=== PATIENT | female | born 1935 | race Caucasian/White ===

== ENCOUNTER 2017-04-05 05:41 | Emergency (ER) | payer MEDICARE ==
[2017-04-05 06:03] VITALS: RESP 16; TEMP 96.9
[2017-04-05 06:04] LABS: Appearance,Urine Cloudy (Clear); Bacteria,Urine Rare /hpf; Bilirubin,Urine Negative (Negative); Glucose,Urine (UA) Negative (Negative); Ketones,Urine Negative (Negative); Leukocyte Esterase,Urine Trace (Negative); Mucus,Urine Rare /hpf; Nitrite,Urine Negative (Negative); PH, Urine 5.5 (5.0-8.0); Particle Count 6337; Protein,Urine 1+ (Negative); RBC,Urine 2 /hpf (0-5); Specific Gravity,Urine 1.024 (1.001-1.035); Squamous Epithelial Cell,Urine 10 /hpf (0-4); UA Billing (MACRO vs. MICRO) MICRO; Urobilinogen,Urine <2.0 mg/dL (<2.0); WBC,Urine 6 /hpf (0-5)
--- NOTE | 2017-04-05 06:07 | ED ---
General Adult HPI - General Chief complaint: Urogenital Stated complaint: Female Time Seen by Provider: 04/05/17 06:00 Source: patient, RN notes reviewed Mode of arrival: ambulatory Limitations: no limitations - History of Present Illness Initial comments: This is an 82-year-old female who presents emergency Department complaining of burning in the vaginal area and some pain in the rectum. Patient states she is constipated and she has quite a bit of dysuria when she is urinating. Patient states she has burning in the vagina area and when she is not urinating. Patient states this started yesterday. Patient denies any discharge. Patient states she is unable to see down her so she does not know if there is any physical changes. Patient denies any fever or chills. Patient states she has been constipated for a few days. Patient denies any abdominal pain. Patient denies any back pain. Patient denies any diarrhea patient denies nausea vomiting patient states the rectal pain is something ongoing for a couple years - Related Data Home Medications Medication Instructions Recorded Confirmed Aspirin 81 mg PO HS 09/17/14 01/14/16 Rosuvastatin [Crestor] 10 mg PO Q48H 09/17/14 01/14/16 glipiZIDE [Glucotrol XL] 2.5 mg PO AC-BRKFST 09/17/14 01/14/16 Vitamin E (Dl,Tocopheryl Acet) 400 units PO DAILY 09/24/14 01/14/16 [Vitamin E] Albuterol Sulfate [Proventil Hfa] 2 puff INHALATION RT-Q6H PRN 12/03/14 01/14/16 Losartan [Cozaar] 50 mg PO HS 11/21/15 01/14/16 Levothyroxine Sodium [Synthroid] 100 mcg PO DAILY 11/22/15 01/14/16 Albuterol Nebulized [Ventolin 2.5 mg INHALATION RT-TID PRN 01/14/16 01/14/16 Nebulized] traMADol HCl [Ultram] 50 mg PO Q6H 01/14/16 01/14/16 Previous Rx's Medication Instructions Recorded Furosemide [Lasix] 20 mg PO DAILY PRN #30 tab 11/24/15 Levofloxacin [Levaquin] 500 mg PO DAILY #10 tab 01/14/16 Amoxicillin 500 mg PO Q8H #30 capsule 04/05/17 Estrogens, Conjugated Cream 1 applicator VAGINAL DAILY #1 tube 04/05/17 [Premarin Cream] Allergies Allergy/AdvReac Type Severity Reaction Status Date / Time Lzoukqf-Aol-Sya Reductase AdvReac Mild GENERALIZED Verified 04/05/17 05:54 Inhibitor MUSCLE ACHING-TOLERATES CRESTOR QOD cephalexin monohydrate AdvReac YEAST Verified 04/05/17 05:54 [From Keflex] INFECTION Review of Systems ROS Statement: Those systems with pertinent positive or pertinent negative responses have been documented in the HPI. ROS Other: All systems not noted in ROS Statement are negative. Past Medical History Past Medical History: Asthma, COPD, Diabetes Mellitus, Hyperlipidemia, Hypertension, Osteoarthritis (OA), Thyroid Disorder Additional Past Medical History / Comment(s): CHRONIC BRONCITIS WITH COUGH. LOWER BACK PAIN. PERIPHERAL EDEMA (FEET) History of Any Multi-Drug Resistant Organisms: None Reported Past Surgical History: Adenoidectomy, Cholecystectomy, Hernia Repair, Joint Replacement, Tonsillectomy Additional Past Surgical History / Comment(s): RIGHT KNEE REPLACED. UMB HERNIA. LEFT LOWER LOBECTOMY (1968) FOR CHRONIC PNEUMONIA. D&C 2014 Past Anesthesia/Blood Transfusion Reactions: No Reported Reaction Past Psychological History: No Psychological Hx Reported Smoking Status: Never smoker Past Alcohol Use History: None Reported Past Drug Use History: None Reported - Past Family History Father Family Medical History: Cancer, CVA/TIA Additional Family Medical History / Comment(s): BLADDER Mother Family Medical History: Asthma Additional Family Medical History / Comment(s): MOM WHEN PT WAS 7 YRS OLD- SHE THINKS OF LUNG PROBLEMS & ASTHMA General Exam - General Exam Comments Initial Comments: GENERAL: Patient is well-developed and well-nourished. Patient is nontoxic and well- hydrated and is in mild distress. ENT: Neck is soft and supple. No significant lymphadenopathy is noted. Oropharynx is clear. Moist mucous membranes. Neck has full range of motion without eliciting any pain. EYES: The sclera were anicteric and conjunctiva were pink and moist. Extraocular movements were intact and pupils were equal round and reactive to light. Eyelids were unremarkable. PULMONARY: Unlabored respirations. Good breath sounds bilaterally. No audible rales rhonchi or wheezing was noted. CARDIOVASCULAR: There is a regular rate and rhythm without any murmurs gallops or rubs. ABDOMEN: Soft and nontender with normal bowel sounds. No palpable organomegaly was noted. There is no palpable pulsatile mass. SKIN: Skin is clear with no lesions or rashes and otherwise unremarkable. NEUROLOGIC: Patient is alert and oriented x3. Cranial nerves II through XII are grossly intact. Motor and sensory are also intact. Normal speech, volume and content. Symmetrical smile. MUSCULOSKELETAL: Normal extremities with adequate strength and full range of motion. No lower extremity swelling or edema. No calf tenderness. PSYCHIATRIC: Normal psychiatric evaluation. Limitations: no limitations Course Vital Signs 04/05/17 04/05/17 05:54 06:19 Temperature 96.9 F L Pulse Rate 82 70 Respiratory 16 16 Rate Blood Pressure 182/77 151/70 O2 Sat by Pulse 97 97 Oximetry Medical Decision Making - Medical Decision Making Patient's x-ray was unremarkable. On external genitalia examination patient had no redness and no swelling was noted there was a small cut on the inside of the left labia. - Lab Data Lab Results 04/05/17 Range/Units 05:50 Urine Color Yellow Urine Appearance Cloudy H (Clear) Urine pH 5.5 (5.0-8.0) Ur Specific [place] 1.024 (1.001-1.035) Urine Protein 1+ H (Negative) Urine Glucose (UA) Negative (Negative) Urine Ketones Negative (Negative) Urine Blood Negative (Negative) Urine Nitrite Negative (Negative) Urine Bilirubin Negative (Negative) Urine Urobilinogen <2.0 (<2.0) mg/dL Ur Leukocyte Esterase Trace H (Negative) Urine RBC 2 (0-5) /hpf Urine WBC 6 H (0-5) /hpf Ur Squamous Epith Cells 10 H (0-4) /hpf Urine Bacteria Rare H (None) /hpf Urine Mucus Rare H (None) /hpf Disposition Clinical Impression: Labial abrasion, Vaginitis Disposition: HOME SELF-CARE Condition: Good Instructions: Vaginitis (ED) Prescriptions: Amoxicillin 500 mg PO Q8H #30 capsule Estrogens, Conjugated Cream [Premarin Cream] 1 applicator VAGINAL DAILY #1 tube Referrals: Roney Smith DO [Primary Care Provider] - 1-2 days Time of Disposition: 06:21
[2017-04-05] MEDS ORDERED: FLUCONAZOLE 150 MG TAB PO STA (06:22)
--- NOTE | 2017-04-05 06:47 | XR ---
EXAM: XR Kub CLINICAL HISTORY: Reason: Pain TECHNIQUE: Upright AP views abdomen. COMPARISON: Comparison 01/14/16. FINDINGS: Limited by body habitus. Flanks are clipped. No subdiaphragmatic free air is seen. Non-obstructive bowel gas pattern. IMPRESSION: Non-obstructive bowel gas pattern.
[2017-04-05 07:09] VITALS: BP 136/78; PULSE 67
== END 2017-04-05 06:59 | disposition home or self-care (01) ==
LOC: EC 05:41
DX: S30.814A Abrasion of vagina and vulva, initial encounter (principal); K59.00 Constipation, unspecified; E78.5 Hyperlipidemia, unspecified; I10 Essential (primary) hypertension; E11.9 Type 2 diabetes mellitus without complications; M19.90 Unspecified osteoarthritis, unspecified site; E07.9 Disorder of thyroid, unspecified; Z79.82 Long term (current) use of aspirin; Z79.84 Long term (current) use of oral hypoglycemic drugs; Z79.899 Other long term (current) drug therapy; Z88.1 Allergy status to other antibiotic agents; Z88.8 Allergy status to other drugs, medicaments and biological substances; X58.XXXA Exposure to other specified factors, initial encounter
CPT/HCPCS: 74000; 81001; 87086; 99283

== ENCOUNTER → 2017-05-25 | Outpatient (CLI) | payer MEDICARE ==
[2017-05-25 16:07] LABS: Basophils # (A) 0.1 k/uL (0-0.2); Basophils % (A) 1 %; CH 30.1; Eosinophils # (A) 0.1 k/uL (0-0.7); Eosinophils % (A) 1 %; HCT 48.2 % (34.0-46.0); HDW 2.47; HGB 15.2 gm/dL (11.4-16.0); Luc # (Auto) 0.24; Luc % (Auto) 3; Lymphocytes # (A) 2.8 k/uL (1.0-4.8); Lymphocytes % (A) 36 %; MCH 29.8 pg (25.0-35.0); MCHC 31.5 g/dL (31.0-37.0); MCV 94.5 fL (80.0-100.0); Mean Platelet Volume 8.1; Monocytes # (A) 0.4 k/uL (0-1.0); Monocytes % (A) 5 %; Neutrophils # (A) 4.1 k/uL (1.3-7.7); Neutrophils % (A) 54 %; RDW 14.4 % (11.5-15.5); WBC 7.6 k/uL (3.8-10.6); WBC (Perox) 7.74
[2017-05-25 16:24] LABS: Potassium 4.5 mmol/L (3.5-5.1)
== END | disposition home or self-care (01) ==
LOC: LABPAT 15:40
PROVIDERS: ATTEND Obstetrics & Gynecology
DX: Z01.812 Encounter for preprocedural laboratory examination (principal); R93.8 Abnormal findings on diagnostic imaging of other specified body structures
CPT/HCPCS: 80051; 82565; 84520; 85025

== ENCOUNTER 2017-06-07 10:14 | Day surgery (SDC) | payer MEDICARE ==
[2017-06-04 10:38] VITALS: BMI 43.4
[~2017-06-07 10:14] MED LIST: DEXAMETHASONE SOD PHOSPHATE 10 MG/ML 1 ML VIAL IV ONE; HYDROmorphone 1 MG/ML 1 ML SYRINGE IVP PRN; LACTATED RINGERS 1,000 ML IV SCH; ONDANSETRON 4 MG/2 ML VIAL IVP ONE; Pre Op ABX Message 1 EACH MISC MISCELLANE ONE
[2017-06-07] MEDS ORDERED: LACTATED RINGERS 1,000 ML IV ONE (10:45)
[2017-06-07] MEDS ORDERED: LIDOCAINE 1% 20 ML VIAL (10MG/ML) FOR IV START INTRADERMA ONE (10:49)
[2017-06-07 11:00] LABS: Glucose,Whole Blood 171 mg/dL (75-99)
[2017-06-07] MEDS ORDERED: LIDOCAINE 1% INJ 10MG/ML (20 ML MDV) ONE (11:45)
[2017-06-07] MEDS ORDERED: SUCCINYLCHOLINE CHLORIDE 100 MG/5 ML SYR IV ONE (11:45)
[2017-06-07] MEDS ORDERED: fentaNYL (PF) 50 MCG/ML 2 ML AMP ONE (11:45)
[2017-06-07] MEDS ORDERED: PROPOFOL 10 MG/ML 20 ML VIAL IV ONE (11:45)
[2017-06-07] MEDS ORDERED: BUPIVACAINE-EPI 0.5%-1:200,000 10 ML VIAL SQ ONE ×2 (12:17)
--- NOTE | 2017-06-07 12:31 | P.OP ---
Date of Procedure: 06/07/17 Preoperative Diagnosis: Thickened endometrium in a postmenopausal woman Postoperative Diagnosis: Same Procedure(s) Performed: Diagnostic hysteroscopy with D&C Implants: Anesthesia: GELYA Surgeon: Zoe Sparrow Estimated Blood Loss (ml): 5 IV fluids (ml): 400 Urine output (ml): 50 Pathology: other (Endometrial curettings) Condition: stable Disposition: PACU Indications for Procedure: Thickened endometrium noted on abdominal imaging done for evaluation of pelvic pain. Secondary to patient's body habitus endometrial biopsy is not possible in the outpatient setting. Operative Findings: Atrophic endometrium with no gross intracavitary lesions appreciated on diagnostic hysteroscopy Description of Procedure: The patient and her family members were met in the preoperative holding area and all questions were answered, she was taken to the operating room where anesthetic was administered. She was in positioned, prepped and draped in the dorsal lithotomy position. Exam under anesthetic was limited secondary to patient's body habitus. Bladder was drained for approximately 50 mL of clear urine. Weighted speculum was placed in the vagina and the cervix was grasped anteriorly with a single-tooth tenaculum. Uterus was sounded to 8 cm. The cervix was then sequentially dilated to allow for passage of the diagnostic hysteroscope. Hysteroscope was inserted and the above findings were noted. After the hysteroscope was removed cervix was further dilated to allow for passage of the small sharp banjo curette. Minimal tissue was obtained back on extensive circumferential curettage. Consistent with atrophic endometrium. The the curettage was removed the hysteroscope was reintroduced and no further findings were noted. Hysteroscope was removed. Instruments removed from the cervix. Of note at the beginning of the procedure paracervical block with lidocaine plus epinephrine was placed. The cervix was observed at the end of procedure no active bleeding was noted. Instruments removed and the patient was awoken from anesthetic without incident. She was transported to recovery area in stable condition. All counts reported to me as correct by the operating room staff.
[2017-06-07 12:46] VITALS: TEMP 97.6
[2017-06-07 13:17] VITALS: PULSE 79
[2017-06-07 13:42] VITALS: RESP 16
[2017-06-07 14:00] VITALS: BP 134/84
== END 2017-06-07 14:44 | disposition home or self-care (01) ==
LOC: OR 10:14
PROVIDERS: ATTEND Obstetrics & Gynecology
DX: R93.8 Abnormal findings on diagnostic imaging of other specified body structures (principal); N95.0 Postmenopausal bleeding; R10.2 Pelvic and perineal pain; J47.9 Bronchiectasis, uncomplicated; N18.9 Chronic kidney disease, unspecified; E11.22 Type 2 diabetes mellitus with diabetic chronic kidney disease; I12.9 Hypertensive chronic kidney disease with stage 1 through stage 4 chronic kidney disease, or unspecified chronic kidney disease; E03.9 Hypothyroidism, unspecified; E66.9 Obesity, unspecified; Z68.42 Body mass index [BMI] 45.0-49.9, adult; E78.5 Hyperlipidemia, unspecified; R01.1 Cardiac murmur, unspecified; K21.9 Gastro-esophageal reflux disease without esophagitis; J44.9 Chronic obstructive pulmonary disease, unspecified; J42 Unspecified chronic bronchitis; Z79.84 Long term (current) use of oral hypoglycemic drugs; Z79.82 Long term (current) use of aspirin; Z79.891 Long term (current) use of opiate analgesic; Z79.899 Other long term (current) drug therapy; Z88.1 Allergy status to other antibiotic agents; Z88.8 Allergy status to other drugs, medicaments and biological substances
CPT/HCPCS: 88305; 58558; J1100; J2405; J2001; J3010; J0330; J2704

== ENCOUNTER 2018-05-31 01:13 | Emergency (ER) | payer MEDICARE ==
[2018-05-31 02:59] LABS: Basophils % (A) 0 %; Eosinophils # (A) 0.1 k/uL (0-0.7); Eosinophils % (A) 1 %; Lymphocytes % (A) 34 %; MCH 29.4 pg (25.0-35.0); MCHC 32.6 g/dL (31.0-37.0); MCV 90.1 fL (80.0-100.0); Mean Platelet Volume 7.2; Monocytes # (A) 0.4 k/uL (0-1.0); Monocytes % (A) 5 %; Neutrophils # (A) 4.9 k/uL (1.3-7.7); Neutrophils % (A) 57 %; Platelet Count 203 k/uL (150-450); RBC 5.77 m/uL (3.80-5.40); RDW 13.8 % (11.5-15.5); WBC 8.7 k/uL (3.8-10.6)
--- NOTE | 2018-05-31 03:07 | ED ---
Back Pain [facility] - General Chief Complaint: Back Pain/Injury Stated Complaint: back/leg pain Time Seen by Provider: 05/31/18 01:37 Source: patient Limitations: no limitations - History of Present Illness MD Complaint: back pain -: days(s) Similar Symptoms Previously: Yes Place: home Radiation: buttocks, right leg Severity: moderate Quality: burning, aching Consistency: constant Improves With: none Worsens With: none Context: bending Associated Symptoms: denies other symptoms - Related Data Home Medications Medication Instructions Recorded Confirmed Aspirin 81 mg PO HS 09/17/14 06/04/17 Rosuvastatin [Crestor] 10 mg PO Q48H 09/17/14 06/04/17 glipiZIDE [Glucotrol XL] 2 tab PO AC-BRKFST 09/17/14 06/04/17 Albuterol Sulfate [Proventil Hfa] 2 puff INHALATION RT-Q6H PRN 12/03/14 06/04/17 Losartan [Cozaar] 50 mg PO HS 11/21/15 06/04/17 Levothyroxine Sodium [Synthroid] 100 mcg PO DAILY 11/22/15 06/04/17 Albuterol Nebulized [Ventolin 2.5 mg INHALATION RT-TID PRN 01/14/16 06/04/17 Nebulized] traMADol HCl [Ultram] 50 mg PO DAILY PRN 01/14/16 06/04/17 ALPRAZolam [Xanax] 0.25 mg PO DAILY PRN 05/25/17 06/04/17 Ascorbic Acid [Vitamin C] 500 mg PO DAILY 05/25/17 06/04/17 Cholecalciferol [Vitamin D3] 4,000 unit PO HS 05/25/17 06/04/17 Furosemide [Lasix] 20 mg PO DAILY 05/25/17 06/04/17 Krill Oil 1,000 mg PO DAILY 05/25/17 06/04/17 Polyethylene Glycol 3350 [Miralax] 17 gm PO DAILY PRN 05/25/17 06/04/17 Ubidecarenone [Co Q-10] 100 mg PO DAILY 05/25/17 06/04/17 Previous Rx's Medication Instructions Recorded Sulfamethox-Tmp 800-160Mg [Bactrim 1 each PO Q12HR #6 tab 05/31/18 Ds] predniSONE 20 mg PO BID #8 tab 05/31/18 Allergies Allergy/AdvReac Type Severity Reaction Status Date / Time Mbuntoj-Tgi-Hyz Reductase AdvReac Mild GENERALIZED Verified 05/31/18 01:17 Inhibitor MUSCLE ACHING-TOLERATES CRESTOR QOD cephalexin monohydrate AdvReac YEAST Verified 05/31/18 01:17 [From Keflex] INFECTION gabapentin [From Neurontin] AdvReac Unknown Verified 05/31/18 01:17 pregabalin [From Lyrica] AdvReac "FELT Verified 05/31/18 01:17 FUNNY" Review of Systems ROS Statement: Those systems with pertinent positive or pertinent negative responses have been documented in the HPI. ROS Other: All systems not noted in ROS Statement are negative. Constitutional: Denies: fever, chills, weakness Respiratory: Denies: cough, dyspnea Cardiovascular: Denies: chest pain, palpitations Gastrointestinal: Denies: abdominal pain, vomiting, diarrhea, constipation Genitourinary: Denies: dysuria, frequency, hematuria Musculoskeletal: Reports: as per HPI, back pain Skin: Denies: rash Neurological: Denies: headache, weakness, numbness Past Medical History Past Medical History: Asthma, COPD, Diabetes Mellitus, Hyperlipidemia, Hypertension, Osteoarthritis (OA), Renal Disease, Thyroid Disorder Additional Past Medical History / Comment(s): CHRONIC BRONCITIS W/ COUGH. LOWER BACK PAIN. PERIPHERAL EDEMA BLE, FEET. Experiencing burning pain in pelvic area, vagina, rectum. Varicose Veins. IBS. RECENT IMPAIRED RENAL FUNCTION BEING MONITORED. History of Any Multi-Drug Resistant Organisms: None Reported Past Surgical History: Adenoidectomy, Cholecystectomy, Hernia Repair, Joint Replacement, Tonsillectomy Additional Past Surgical History / Comment(s): RT KNEE REPLACED. UMB HERNIA. 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 D&C 2014. HEMORRHOID, FISSURE SURG. Past Anesthesia/Blood Transfusion Reactions: No Reported Reaction Past Psychological History: Anxiety Smoking Status: Former smoker - Past Family History Father Family Medical History: Cancer, CVA/TIA Additional Family Medical History / Comment(s): BLADDER Mother Family Medical History: Asthma, Pneumonia Additional Family Medical History / Comment(s): MOM WHEN PT WAS 5 YRS OLD- SHE THINKS OF LUNG PROBLEMS & ASTHMA General Exam Limitations: no limitations General appearance: alert, in no apparent distress, obese Head exam: Present: atraumatic, normocephalic Respiratory exam: Present: normal lung sounds bilaterally. Absent: respiratory distress, wheezes, rales, rhonchi, stridor Cardiovascular Exam: Present: regular rate, normal rhythm, normal heart sounds. Absent: systolic murmur, diastolic murmur, rubs, gallop GI/Abdominal exam: Present: soft. Absent: distended, tenderness, pulsatile mass Back exam: Absent: CVA tenderness (R), CVA tenderness (L), vertebral tenderness Neurological exam: Present: alert, reflexes normal. Absent: motor sensory deficit Skin exam: Present: warm, dry, intact, normal color. Absent: rash Course Vital Signs 05/31/18 05/31/18 05/31/18 01:15 03:18 04:43 Temperature 98.6 F Pulse Rate 76 67 76 Respiratory 20 18 18 Rate Blood Pressure 174/85 162/78 174/81 O2 Sat by Pulse 95 100 95 Oximetry Medical Decision Making - Lab Data Result diagrams: 05/31/18 02:52 05/31/18 02:52 Lab Results 05/31/18 05/31/18 05/31/18 Range/Units 02:52 02:52 03:24 WBC 8.7 (3.8-10.6) k/uL RBC 5.77 H (3.80-5.40) m/uL Hgb 17.0 H (11.4-16.0) gm/dL Hct 52.0 H (34.0-46.0) % MCV 90.1 (80.0-100.0) fL MCH 29.4 (25.0-35.0) pg MCHC 32.6 (31.0-37.0) g/dL RDW 13.8 (11.5-15.5) % Plt Count 203 (150-450) k/uL Neutrophils % 57 % Lymphocytes % 34 % Monocytes % 5 % Eosinophils % 1 % Basophils % 0 % Neutrophils # 4.9 (1.3-7.7) k/uL Lymphocytes # 3.0 (1.0-4.8) k/uL Monocytes # 0.4 (0-1.0) k/uL Eosinophils # 0.1 (0-0.7) k/uL Basophils # 0.0 (0-0.2) k/uL Sodium 140 (137-145) mmol/L Potassium 4.4 (3.5-5.1) mmol/L Chloride 104 (98-107) mmol/L Carbon Dioxide 30 (22-30) mmol/L Anion Gap 6 mmol/L BUN 19 H (7-17) mg/dL Creatinine 1.10 H (0.52-1.04) mg/dL Est GFR (CKD-EPI)AfAm 53 (>60 ml/min/1.73 sqM) Est GFR (CKD-EPI)NonAf 46 (>60 ml/min/1.73 sqM) Glucose 114 H (74-99) mg/dL Calcium 9.4 (8.4-10.2) mg/dL Urine Color Light Yellow Urine Appearance Clear (Clear) Urine pH 6.5 (5.0-8.0) Ur Specific [place] 1.010 (1.001-1.035) Urine Protein Negative (Negative) Urine Glucose (UA) Negative (Negative) Urine Ketones Negative (Negative) Urine Blood Negative (Negative) Urine Nitrite Negative (Negative) Urine Bilirubin Negative (Negative) Urine Urobilinogen <2.0 (<2.0) mg/dL Ur Leukocyte Esterase Moderate H (Negative) Urine RBC 2 (0-5) /hpf Urine WBC 33 H (0-5) /hpf Ur Squamous Epith Cells 4 (0-4) /hpf Urine Bacteria Occasional H (None) /hpf Disposition Clinical Impression: Sciatica, Urinary tract infection Disposition: HOME SELF-CARE Condition: Fair Instructions: Acute Low Back Pain (ED), Urinary Tract Infection in Women (ED) Prescriptions: predniSONE 20 mg PO BID #8 tab Sulfamethox-Tmp 800-160Mg [Bactrim Ds] 1 each PO Q12HR #6 tab Is patient prescribed a controlled substance at d/c from ED?: No Referrals: Roney Smith DO [Primary Care Provider] - 1-2 days Sandra Gustafson DO [Doctor of Osteopathic Medicine] - 1-2 days
[2018-05-31 03:14] LABS: Calcium 9.4 mg/dL (8.4-10.2); Potassium 4.4 mmol/L (3.5-5.1)
[2018-05-31 03:21] VITALS: RESP 18
--- NOTE | 2018-05-31 03:22 | CT ---
EXAMINATION TYPE: CT lumbar spine wo con DATE OF EXAM: 05/31/2018 3:08 AM COMPARISON: CT abdomen 01/14/2016 HISTORY: Back pain CT DLP: mGycm Automated exposure control for dose reduction was used. Unenhanced CT of the lumbar spine was performed. Bone and soft tissue window settings are submitted as well as coronal and sagittal reconstructions. There is a few millimeter anterior subluxation of L3 in relation L4. There is narrowing of L5-S1 disc space. There is minimal narrowing of the L3-4 disc space. There is no compression fracture. Posterio r elements appear intact. There is hypertrophic facet arthropathy throughout the lumbar spine. There is no lumbar paraspinal mass. There is some lateral recess stenosis at L3-4 due to facet arthropathy. The sacroiliac joints appear intact. There is no focal bone destruction. IMPRESSION: Mild multilevel spondylotic changes. Mild lateral recess stenosis at L3-4 due to facet arthropathy. N o fracture. No significant change compared to old exam.
[2018-05-31 03:34] LABS: Appearance,Urine Clear (Clear); Bacteria,Urine Occasional /hpf; Bilirubin,Urine Negative (Negative); Blood,Urine Negative (Negative); Color,Urine Light Yellow; Glucose,Urine (UA) Negative (Negative); Ketones,Urine Negative (Negative); Leukocyte Esterase,Urine Moderate (Negative); Nitrite,Urine Negative (Negative); PH, Urine 6.5 (5.0-8.0); Protein,Urine Negative (Negative); RBC,Urine 2 /hpf (0-5); Squamous Epithelial Cell,Urine 4 /hpf (0-4); Urobilinogen,Urine <2.0 mg/dL (<2.0); WBC,Urine 33 /hpf (0-5)
[2018-05-31] MEDS ORDERED: predniSONE 20 MG TAB PO STA (03:51)
[2018-05-31] MEDS ORDERED: MORPHINE SULFATE 4 MG/ML SYRINGE IV STA (03:52)
[2018-05-31] MEDS ORDERED: KETOROLAC 30 MG/ML 1 ML VIAL IVP STA (03:52)
[2018-05-31] MEDS ORDERED: SULFAMETHOX-TMP 800-160MG 1 EACH TAB PO STA (04:40)
[2018-05-31 05:45] VITALS: BP 180/81; PULSE 74; TEMP 98.1
== END 2018-05-31 05:45 | disposition home or self-care (01) ==
LOC: EC 01:13
DX: N39.0 Urinary tract infection, site not specified (principal); M54.31 Sciatica, right side; J44.9 Chronic obstructive pulmonary disease, unspecified; E11.9 Type 2 diabetes mellitus without complications; I10 Essential (primary) hypertension; E78.5 Hyperlipidemia, unspecified; M19.90 Unspecified osteoarthritis, unspecified site; E07.9 Disorder of thyroid, unspecified; F41.9 Anxiety disorder, unspecified; Z87.891 Personal history of nicotine dependence; Z90.49 Acquired absence of other specified parts of digestive tract; Z96.651 Presence of right artificial knee joint; Z98.890 Other specified postprocedural states; Z79.82 Long term (current) use of aspirin; Z79.84 Long term (current) use of oral hypoglycemic drugs; Z79.899 Other long term (current) drug therapy; Z88.1 Allergy status to other antibiotic agents; Z88.8 Allergy status to other drugs, medicaments and biological substances
CPT/HCPCS: 36415; 80048; 85025; 81001; 72131; 99284; 96374; 96375; J2270; J1885; J7512

== ENCOUNTER 2020-09-17 16:12 | Inpatient (IN) | payer MEDICARE ==
[2020-09-17] MEDS ORDERED: SODIUM CHLORIDE 0.9% 1,000 ML IV STA (17:10)
[2020-09-17] MEDS ORDERED: ONDANSETRON 4 MG/2 ML VIAL IVP STA (17:11)
[2020-09-17] MEDS ORDERED: ACETAMINOPHEN TAB 500 MG TAB PO STA (17:55)
--- NOTE | 2020-09-17 17:57 | ED ---
Nausea/Vomiting/Diarrhea HPI - General Chief complaint: Nausea/Vomiting/Diarrhea Stated complaint: COVID+ Time Seen by Provider: 09/17/20 16:39 Source: patient Mode of arrival: wheelchair Limitations: no limitations - History of Present Illness Initial comments: 85-year-old female patient presents to the emergency department today for evaluation of fever and diarrhea. Patient states that she was diagnosed with COVID-19 on Wednesday. She states that she started with cough and shortness of breath which led her to get tested. She states that yesterday she started to have diarrhea whenever she eats or drinks anything. She states she has had some nausea, no vomiting. States she has had fever and body aches today. Also reporting weakness. Denies any chest pain. Patient denies any recent rash, numbness, tingling, hematuria, dysuria, urinary urgency, urinary frequency, headache, visual changes, or any other complaints. - Related Data Home Medications Medication Instructions Recorded Confirmed Rosuvastatin [Crestor] 10 mg PO DAILY 09/17/14 09/17/20 Losartan [Cozaar] 50 mg PO DAILY 11/21/15 09/17/20 Levothyroxine Sodium [Synthroid] 100 mcg PO DAILY 11/22/15 09/17/20 Furosemide [Lasix] 40 mg PO DAILY 09/17/20 09/17/20 Mometasone/Formoterol [Dulera 100 2 puff PO RT-BID 09/17/20 09/17/20 Mcg-5 Mcg Inhaler] Nystatin 100,000Unit/gm Cream 1 applic TOPICAL BID 09/17/20 09/17/20 [Mycostatin Cream] Pioglitazone [Actos] 15 mg PO DAILY 09/17/20 09/17/20 glipiZIDE [Glucotrol] 5 mg PO DAILY 09/17/20 09/17/20 Allergies Allergy/AdvReac Type Severity Reaction Status Date / Time Mnjjvjb-[id number]-Nrw Reductase AdvReac Mild GENERALIZED Verified 09/17/20 20:45 Inhibitor MUSCLE ACHING-TOLERATES CRESTOR QOD cephalexin monohydrate AdvReac YEAST Verified 09/17/20 20:45 [From Keflex] INFECTION gabapentin [From Neurontin] AdvReac Unknown Verified 09/17/20 20:45 pregabalin [From Lyrica] AdvReac "FELT Verified 09/17/20 20:45 FUNNY" Review of Systems ROS Statement: Those systems with pertinent positive or pertinent negative responses have been documented in the HPI. ROS Other: All systems not noted in ROS Statement are negative. Past Medical History Past Medical History: Asthma, COPD, Diabetes Mellitus, Hyperlipidemia, Hypertension, Osteoarthritis (OA), Renal Disease, Thyroid Disorder Additional Past Medical History / Comment(s): CHRONIC BRONCITIS W/ COUGH. LOWER BACK PAIN. PERIPHERAL EDEMA BLE, FEET. Experiencing burning pain in pelvic area, vagina, rectum. Varicose Veins. IBS. RECENT IMPAIRED RENAL FUNCTION BEING MONITORED. History of Any Multi-Drug Resistant Organisms: None Reported Past Surgical History: Adenoidectomy, Cholecystectomy, Hernia Repair, Joint Replacement, Tonsillectomy Additional Past Surgical History / Comment(s): RT KNEE REPLACED. UMB HERNIA. 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 D&C 2014. HEMORRHOID, FISSURE SURG. Past Anesthesia/Blood Transfusion Reactions: No Reported Reaction Past Psychological History: Anxiety Smoking Status: Never smoker Past Alcohol Use History: None Reported Past Drug Use History: None Reported - Past Family History Father Family Medical History: Cancer, CVA/TIA Additional Family Medical History / Comment(s): BLADDER Mother Family Medical History: Asthma, Pneumonia Additional Family Medical History / Comment(s): MOM WHEN PT WAS 7 YRS OLD- SHE THINKS OF LUNG PROBLEMS & ASTHMA General Exam Limitations: no limitations General appearance: alert, in no apparent distress, other (This is a well- developed, well-nourished adult female patient in no acute distress. Vital signs upon presentation are temperature 100.3F, pulse 77, respirations 18, blood pressure 164/83, pulse ox 93% on room air.) Eye exam: Present: normal appearance, PERRL, EOMI. Absent: scleral icterus, conjunctival injection, periorbital swelling ENT exam: Present: normal exam, normal oropharynx, mucous membranes moist Respiratory exam: Present: wheezes (Expiratory wheezing noted in the posterior lung rangel). Absent: normal lung sounds bilaterally, respiratory distress, rales, rhonchi, stridor Cardiovascular Exam: Present: regular rate, normal rhythm, normal heart sounds. Absent: systolic murmur, diastolic murmur, rubs, gallop, clicks GI/Abdominal exam: Present: soft, normal bowel sounds. Absent: distended, tenderness, guarding, rebound, rigid Neurological exam: Present: alert, oriented X3, CN II-XII intact Psychiatric exam: Present: normal affect, normal mood Skin exam: Present: warm, dry, intact, normal color. Absent: rash Course Vital Signs 09/17/20 09/17/20 09/17/20 16:30 17:38 18:36 Temperature 100.3 F H Pulse Rate 77 83 Respiratory 18 24 20 Rate Blood Pressure 164/83 140/64 O2 Sat by Pulse 93 L 95 Oximetry 09/17/20 09/17/20 09/17/20 19:00 20:00 20:39 Temperature 99.4 F Pulse Rate 82 71 72 Respiratory 20 20 18 Rate Blood Pressure 150/81 158/81 133/57 O2 Sat by Pulse 98 96 96 Oximetry Medical Decision Making - Medical Decision Making 85-year-old female patient presents to the emergency department today for evaluation of increased weakness, shortness of breath, diarrhea. Physical examination did reveal expiratory wheezing in the posterior lung rangel. Patient did test positive for COVID-19 on Wednesday. Labs reviewed, white blood cell count is normal. D-dimer elevated over 1. Did perform CT chest angiography which showed bilateral lower lobe infiltrates. Given patient's age and comorbidities we will admit to the hospital for further monitoring and oxygen therapy. She is agreeable this plan. - Lab Data Result diagrams: 09/17/20 17:31 09/17/20 17:31 Lab Results 09/17/20 09/17/20 09/17/20 Range/Units 17:31 17:31 17:31 WBC 5.8 (3.8-10.6) k/uL RBC 4.67 (3.80-5.40) m/uL Hgb 13.6 (11.4-16.0) gm/dL Hct 41.8 (34.0-46.0) % MCV 89.7 (80.0-100.0) fL MCH 29.1 (25.0-35.0) pg MCHC 32.4 (31.0-37.0) g/dL RDW 13.7 (11.5-15.5) % Plt Count 220 (150-450) k/uL MPV 8.1 Neutrophils % 59 % Lymphocytes % 28 % Monocytes % 10 % Eosinophils % 0 % Basophils % 0 % Neutrophils # 3.4 (1.3-7.7) k/uL Lymphocytes # 1.6 (1.0-4.8) k/uL Monocytes # 0.6 (0-1.0) k/uL Eosinophils # 0.0 (0-0.7) k/uL Basophils # 0.0 (0-0.2) k/uL D-Dimer 1.79 H (<0.60) mg/L FEU Sodium 134 L (137-145) mmol/L Potassium 4.5 (3.5-5.1) mmol/L Chloride 99 (98-107) mmol/L Carbon Dioxide 30 (22-30) mmol/L Anion Gap 5 mmol/L BUN 13 (7-17) mg/dL Creatinine 1.02 (0.52-1.04) mg/dL Est GFR (CKD-EPI)AfAm 57 (>60 ml/min/1.73 sqM) Est GFR (CKD-EPI)NonAf 50 (>60 ml/min/1.73 sqM) Glucose 119 H (74-99) mg/dL Calcium 8.3 L (8.4-10.2) mg/dL Total Bilirubin 0.9 (0.2-1.3) mg/dL AST 43 H (14-36) U/L ALT 27 (4-34) U/L Alkaline Phosphatase 59 (38-126) U/L Lactate Dehydrogenase 792 H (313-618) U/L C-Reactive Protein 41.6 H (<10.0) mg/L Total Protein 5.8 L (6.3-8.2) g/dL Albumin 3.2 L (3.5-5.0) g/dL Lipase 322 H (23-300) U/L - EKG Data -: EKG Interpreted by Sc EKG Comments: EKG obtained at 1704 shows sinus rhythm with premature super ventricular complexes. Ventricular rate is 78, WV interval 182, QRS duration 82, QT 370, QTC 421. No evidence of ST elevation or depression. - Radiology Data Radiology results: report reviewed, image reviewed CT chest angiography for pulmonary embolism was performed. Report was reviewed in its entirety. Impression by Dr. Espinal shows no evidence of pulmonary embolism. There are a few nonspecific anterior mediastinal lymph nodes measuring up to 1.5 cm which are new compared to old exam. There is stable subcarinal lymph node. Patchy bilateral lower lobe pulmonary infiltrates and atelectasis increased compared to old exam. Disposition Clinical Impression: COVID-19, Hypoxia, Diarrhea Disposition: ADMITTED IP TO THIS [facility] Condition: Serious Decision to Admit Reason: Admit from EC Decision Date: 09/17/20 Decision Time: 19:51
[2020-09-17 17:58] LABS: Albumin 3.2 g/dL (3.5-5.0); C Reactive Protein 41.6 mg/L (<10.0); Calcium 8.3 mg/dL (8.4-10.2); Potassium 4.5 mmol/L (3.5-5.1); Total Bilirubin 0.9 mg/dL (0.2-1.3); Total Protein 5.8 g/dL (6.3-8.2)
[2020-09-17 18:00] LABS: Basophils % (A) 0 %; Eosinophils % (A) 0 %; HCT 41.8 % (34.0-46.0); HGB 13.6 gm/dL (11.4-16.0); Lymphocytes # (A) 1.6 k/uL (1.0-4.8); Lymphocytes % (A) 28 %; MCH 29.1 pg (25.0-35.0); MCHC 32.4 g/dL (31.0-37.0); MCV 89.7 fL (80.0-100.0); Mean Platelet Volume 8.1; Monocytes # (A) 0.6 k/uL (0-1.0); Monocytes % (A) 10 %; Neutrophils # (A) 3.4 k/uL (1.3-7.7); Neutrophils % (A) 59 %; Platelet Count 220 k/uL (150-450); RBC 4.67 m/uL (3.80-5.40); RDW 13.7 % (11.5-15.5); WBC 5.8 k/uL (3.8-10.6)
--- NOTE | 2020-09-17 18:56 | CT ---
EXAMINATION TYPE: CT chest angio for PE DATE OF EXAM: 09/17/2020 COMPARISON: 11/01/2012 HISTORY: COVID +, elevated d-dimer CT DLP: 695.9 mGycm Automated exposure control for dose reduction was used. CONTRAST: Performed with IV Contrast, patient injected with 80 mL of Isovue 370. Images were obtained from the thoracic inlet to the diaphragm with IV contrast and 3-D post processed images. There is bilateral pleural effusions. There is bilateral patchy lower lobe pulmonary infiltrates and atelectasis. There is no pericardial effusion. There are no hilar masses. There are a few anterior me diastinal lymph nodes that measure up to 1.5 cm. There are no hilar masses. There is 1.5 cm subcarina l lymph node. Thoracic aorta is intact. There is no aneurysm or dissection. There is normal contrast opacification of the pulmonary arteries. There are no filling defects. The bony thorax is intact. Upper abdominal s oft tissues appear intact. IMPRESSION: No evidence of pulmonary embolism. There are few nonspecific anterior mediastinal lymph nodes measuri ng up to 1.5 cm which are new compared to old exam. There is stable subcarinal lymph node. Patchy bilateral lower lobe pulmonary infiltrates and atelectasis increased compared to old exam.
[2020-09-17] MEDS ORDERED: NALOXONE 0.4 MG/ML 1 ML VIAL IV PRN (19:54)
[2020-09-17] MEDS ORDERED: ONDANSETRON 4 MG/2 ML VIAL IVP PRN (19:54)
[2020-09-17] MEDS ORDERED: dexAMETHasone 2 MG TAB PO SCH (21:00)
[2020-09-17 22:00] LABS: Appearance,Urine Clear (Clear); Bilirubin,Urine Negative (Negative); Blood,Urine Small (Negative); Color,Urine Yellow; Glucose,Urine (UA) Negative (Negative); Ketones,Urine 1+ (Negative); Leukocyte Esterase,Urine Negative (Negative); Mucus,Urine Rare /hpf; Nitrite,Urine Negative (Negative); PH, Urine 5.5 (5.0-8.0); Protein,Urine Trace (Negative); RBC,Urine 9 /hpf (0-5); Squamous Epithelial Cell,Urine 7 /hpf (0-4); Urobilinogen,Urine <2.0 mg/dL (<2.0); WBC,Urine 2 /hpf (0-5)
[2020-09-17 22:01] LABS: Specific Gravity,Urine >1.050 (1.001-1.035)
[2020-09-17] MEDS: ASCORBIC ACID 500 MG TAB PO SCH (22:25)
[2020-09-17] MEDS: ZINC SULFATE 220 MG CAP PO SCH (22:25)
[2020-09-17] MEDS: ENOXAPARIN 40 MG/0.4 ML SYRINGE SQ SCH (22:33)
[2020-09-17] MEDS: FAMOTIDINE 20 MG/2 ML VIAL IV SCH (22:33)
[2020-09-18] MEDS: SODIUM CHLORIDE 0.9% 1,000 ML IV SCH ×2 (01:52→17:51)
[2020-09-18] MEDS: ACETAMINOPHEN TAB 325 MG TAB PO PRN (04:32)
[2020-09-18 09:06] LABS: Calcium 8.1 mg/dL (8.4-10.2); Potassium 4.4 mmol/L (3.5-5.1)
[2020-09-18] MEDS ORDERED: PANTOPRAZOLE 40 MG/10 ML VIAL IVP SCH (11:30)
[2020-09-18] MEDS: ZINC SULFATE 220 MG CAP PO SCH (11:36)
[2020-09-18] MEDS: dexAMETHasone 2 MG TAB PO SCH (11:36)
[2020-09-18] MEDS: ENOXAPARIN 40 MG/0.4 ML SYRINGE SQ SCH (11:36)
[2020-09-18] MEDS: ASCORBIC ACID 500 MG TAB PO SCH (11:36)
[2020-09-18] MEDS: FAMOTIDINE 20 MG/2 ML VIAL IV SCH ×2 (11:36→21:15)
[2020-09-18 15:57] LABS: Ferritin 304.8 ng/mL (10.0-291.0)
--- NOTE | 2020-09-18 18:06 | P.CNPUL ---
History of Present Illness Consult date: 09/18/20 Requesting physician: Francia Knight Reason for consult: pneumonia Chief complaint: Fever and diarrhea. History of present illness: This is an 85-year-old female diagnosed last ones day with positive covid 19, patient has been sick for the last 2 weeks. Patient had multiple constitutional symptoms for the last 2 weeks including minimal cough, minimal shortness of breath, headaches, congestion, vague aches and pains, but most importantly intermittent episodes of diarrhea. She had fever, body aches, but no nausea no vomiting, no hemoptysis, no chest pain. Patient denies any loss of sensation of smell or taste, denied any other major symptoms. Actually she seems to be more concerned about her diarrhea and about her headaches. No significant pulmonary symptoms except for occasional cough and shortness of breath. Considering her age and considering her multiple symptoms, patient was admitted, and we were asked to see her on consultation. CT angiogram of the chest showed questionable patchy bilateral infiltrates. And atelectasis. Patient had adequate saturations on room air, however she was placed on 4 L nasal cannula, and her O2 saturation was 100%. The lowest O2 saturations recorded on room air was 93%. Review of Systems Constitutional: Vague aches and pains, low-grade fever, no weight loss, HEENT: Minimal nasal congestion and pressure over her sinus. However she has significant headaches. Pulmonary: As noted in HPI. GI: Diarrhea as noted in HPI. Genitourinary: Negative. Hematologic: Negative. Psychiatric: Negative. Neurologic: Headaches Skin: Negative Musculoskeletal: Negative Psychiatric: Negative Endocrine: No heat or cold intolerance. Past Medical History Past Medical History: Asthma, COPD, Diabetes Mellitus, Hyperlipidemia, Hypertension, Osteoarthritis (OA), Renal Disease, Thyroid Disorder Additional Past Medical History / Comment(s): CHRONIC BRONCITIS W/ COUGH. LOWER BACK PAIN. PERIPHERAL EDEMA BLE, FEET. Experiencing burning pain in pelvic area, vagina, rectum. Varicose Veins. IBS. RECENT IMPAIRED RENAL FUNCTION BEING MONITORED. History of Any Multi-Drug Resistant Organisms: None Reported Past Surgical History: Adenoidectomy, Cholecystectomy, Hernia Repair, Joint Replacement, Tonsillectomy Additional Past Surgical History / Comment(s): RT KNEE REPLACED. UMB HERNIA. 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 D&C 2014. HEMORRHOID, FISSURE SURG. Past Anesthesia/Blood Transfusion Reactions: No Reported Reaction Additional Past Anesthesia/Blood Transfusion Reaction / Comment(s): unknown on blood transfusions Past Psychological History: Anxiety Smoking Status: Never smoker Past Alcohol Use History: None Reported Past Drug Use History: None Reported - Past Family History Father Family Medical History: Cancer, CVA/TIA Additional Family Medical History / Comment(s): BLADDER Mother Family Medical History: Asthma, Pneumonia Additional Family Medical History / Comment(s): MOM WHEN PT WAS 5 YRS OLD- SHE THINKS OF LUNG PROBLEMS & ASTHMA Medications and Allergies Home Medications Medication Instructions Recorded Confirmed Type Rosuvastatin [Crestor] 10 mg PO DAILY 09/17/14 09/17/20 History Losartan [Cozaar] 50 mg PO DAILY 11/21/15 09/17/20 History Levothyroxine Sodium [Synthroid] 100 mcg PO DAILY 11/22/15 09/17/20 History Furosemide [Lasix] 40 mg PO DAILY 09/17/20 09/17/20 History Mometasone/Formoterol [Dulera 100 2 puff PO RT-BID 09/17/20 09/17/20 History Mcg-5 Mcg Inhaler] Nystatin 100,000Unit/gm Cream 1 applic TOPICAL BID 09/17/20 09/17/20 History [Mycostatin Cream] Pioglitazone [Actos] 15 mg PO DAILY 09/17/20 09/17/20 History glipiZIDE [Glucotrol] 5 mg PO DAILY 09/17/20 09/17/20 History Allergies Allergy/AdvReac Type Severity Reaction Status Date / Time [id number]-Wii Reductase AdvReac Mild GENERALIZED Verified 09/17/20 20:45 Inhibitor MUSCLE ACHING-TOLERATES CRESTOR QOD cephalexin monohydrate AdvReac YEAST Verified 09/17/20 20:45 [From Keflex] INFECTION gabapentin [From Neurontin] AdvReac Unknown Verified 09/17/20 20:45 pregabalin [From Lyrica] AdvReac "FELT Verified 09/17/20 20:45 FUNNY" Physical Exam Vitals: Vital Signs Temp Pulse Pulse Resp BP BP Pulse Ox 09/18/20 16:00 98.2 F 61 22 141/71 100 09/18/20 12:00 64 22 139/61 100 09/18/20 08:00 97.7 F 58 L 20 130/61 94 L 09/18/20 04:00 97.5 F L 60 20 142/79 100 09/18/20 02:43 97.6 F 56 L 20 121/63 96 09/17/20 22:35 98.1 F 09/17/20 22:25 58 L 18 140/59 97 09/17/20 20:39 72 18 133/57 96 09/17/20 20:00 71 20 158/81 96 09/17/20 19:00 99.4 F 82 20 150/81 98 09/17/20 18:36 83 20 140/64 95 Intake and Output 09/18/20 09/18/20 09/18/20 06:59 14:59 22:59 Intake Total 50 Balance 50 Intake: Oral 50 Physical Exam: Revealed 85-year-old female in no distress. Head: Atraumatic, normocephalic. HEENT:[Neck is supple.] [No neck masses.] [No thyromegaly.] [No JVD.] PERRLA, EOMI, nonicteric. Chest: [Clear throughout, no crackles, no rhonchi, no wheezes.] Cardiac Exam: [Normal S1 and S2, no S3 gallop, no murmur.] Abdomen: [Soft, nontender, no megaly, no rebound, no guarding, normal bowel sounds.] Extremities: [No clubbing, no edema, no cyanosis.] Neurological Exam: [No focal neurologic deficit.] Alert oriented 3. Psychiatric: Normal mood affect and normal mental status examination. Skin: No rashes. Results - Laboratory Findings CBC and BMP: 09/17/20 17:31 09/18/20 07:59 PT/INR, D-dimer D-Dimer 1.79 mg/L FEU (<0.60) H 09/17/20 17:31 Abnormal lab findings: Abnormal Labs 09/17/20 09/17/20 09/17/20 17:31 17:31 21:31 D-Dimer 1.79 H Sodium 134 L Glucose 119 H Calcium 8.3 L Ferritin AST 43 H Lactate Dehydrogenase 792 H C-Reactive Protein 41.6 H Total Protein 5.8 L Albumin 3.2 L Lipase 322 H Ur Specific [place]son >1.050 H Urine Protein Trace H Urine Ketones 1+ H Urine Blood Small H Urine RBC 9 H Ur Squamous Epith Cells 7 H Urine Mucus Rare H 09/18/20 07:59 D-Dimer Sodium Glucose Calcium 8.1 L Ferritin 304.8 H AST Lactate Dehydrogenase 720 H C-Reactive Protein 42.0 H Total Protein Albumin Lipase Ur Specific Woodson Urine Protein Urine Ketones Urine Blood Urine RBC Ur Squamous Epith Cells Urine Mucus - Diagnostic Findings CT scan - chest: image reviewed (As noted in HPI.) Assessment and Plan Assessment: Impression: Acute covid19 pneumonitis Acute gastroenteritis secondary to covid 19 infection. Acute viral illness History of type 2 diabetes. Benign essential hypertension. History of hypothyroidism. History of dyslipidemia. Questionable history of asthma, patient is not maintained on any bronchodilators. Recommendation: Continue present supportive care measures. Continue IV fluids for her ongoing diarrhea. Patient does not qualify at this point for remdesivir, her symptoms seemed to be mostly GI in nature, no significant pulmonary symptoms during my evaluation. Start the Failed treatment for Covid 19 infection. Including Decadron, Lovenox, episode, zinc, vitamin C, and vitamin D. Patient is presently on room air, however if she desaturates, titrate oxygen accordingly. We will continue to follow. Time with Patient: Greater than 30
[2020-09-18 20:27] LABS: Glucose,Whole Blood 235 mg/dL (75-99)
[2020-09-18] MEDS: INSULIN ASPART (NovoLOG) 100 UNIT/ML VIAL SQ SCH (21:16)
--- NOTE | 2020-09-18 22:42 | P.HPIM ---
History of Present Illness This is a pleasant 85 years old female with past medical history of asthma/COPD, diabetes mellitus, hyperlipidemia, hypertension, osteoarthritis, hypothyroidism, chronic low back pain. Irritable bowel syndrome, anxiety Patient states that she was diagnosed with positive Covid test about 5 days ago on 09/13. And this time presents because of continuous diarrhea without improvement associated with some nausea vomiting and low-grade fever and decreased appetite. Patient vomited while she was in the emergency room, also she is complaining of from nausea and has diarrhea for the last 2 days about twice per day. No significant abdominal pain, may be some Vitals are stable and patient is afebrile currently however she had low-grade temperature at 100.3 on admission. She is saturating 100% and a 3 L oxygen via nasal cannula. She was 93% on room air on admission Labs unremarkable including CBC, BMP, liver enzymes and urine analysis. Inflammatory markers are elevated with lactate dehydrogenase at 7020, C-reactive protein at 42. D-dimer is slightly elevated at 1.7 EKG showing normal sinus rhythm at [address]-T changes. CTA of the chest: No evidence of pulmonary embolism. There is diffuse nonspecific anterior mediastinal lymph nodes measuring up to 1.5 cm which are new compared to old exam. Patchy bilateral lower lobe pulmonary infiltrates increased compared to old e Review of Systems CONSTITUTIONAL: No fever, no malaise, no fatigue. HEENT: No recent visual problems or hearing problems. Denied any sore throat. CARDIOVASCULAR: No orthopnea, PND, no palpitations, no syncope. PULMONARY: No shortness of breath, no cough, no hemoptysis. GASTROINTESTINAL: No diarrhea, no nausea, no vomiting, no abdominal pain. Normoactive bowel sounds. NEUROLOGICAL: No headaches, no weakness, no numbness. HEMATOLOGICAL: Denies any bleeding or petechiae. GENITOURINARY: Denies any burning micturition, frequency, or urgency. MUSCULOSKELETAL/RHEUMATOLOGICAL: Denies any joint pain, swelling, or any muscle pain. ENDOCRINE: Denies any polyuria or polydipsia. Past Medical History Past Medical History: Asthma, COPD, Diabetes Mellitus, Hyperlipidemia, Hypertension, Osteoarthritis (OA), Renal Disease, Thyroid Disorder Additional Past Medical History / Comment(s): CHRONIC BRONCITIS W/ COUGH. LOWER BACK PAIN. PERIPHERAL EDEMA BLE, FEET. Experiencing burning pain in pelvic area, vagina, rectum. Varicose Veins. IBS. RECENT IMPAIRED RENAL FUNCTION BEING MONITORED. History of Any Multi-Drug Resistant Organisms: None Reported Past Surgical History: Adenoidectomy, Cholecystectomy, Hernia Repair, Joint Replacement, Tonsillectomy Additional Past Surgical History / Comment(s): RT KNEE REPLACED. [facility]MB HERNIA. 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 D&C 2014. HEMORRHOID, FISSURE SURG. Past Anesthesia/Blood Transfusion Reactions: No Reported Reaction Additional Past Anesthesia/Blood Transfusion Reaction / Comment(s): unknown on blood transfusions Past Psychological History: Anxiety Smoking Status: Never smoker Past Alcohol Use History: None Reported Past Drug Use History: None Reported - Past Family History Father Family Medical History: Cancer, CVA/TIA Additional Family Medical History / Comment(s): BLADDER Mother Family Medical History: Asthma, Pneumonia Additional Family Medical History / Comment(s): MOM WHEN PT WAS 5 YRS OLD- SHE THINKS OF LUNG PROBLEMS & ASTHMA Medications and Allergies Home Medications Medication Instructions Recorded Confirmed Type Rosuvastatin [Crestor] 10 mg PO DAILY 09/17/14 09/17/20 History Losartan [Cozaar] 50 mg PO DAILY 11/21/15 09/17/20 History Levothyroxine Sodium [Synthroid] 100 mcg PO DAILY 11/22/15 09/17/20 History Furosemide [Lasix] 40 mg PO DAILY 09/17/20 09/17/20 History Mometasone/Formoterol [Dulera 100 2 puff PO RT-BID 09/17/20 09/17/20 History Mcg-5 Mcg Inhaler] Nystatin 100,000Unit/gm Cream 1 applic TOPICAL BID 09/17/20 09/17/20 History [Mycostatin Cream] Pioglitazone [Actos] 15 mg PO DAILY 09/17/20 09/17/20 History glipiZIDE [Glucotrol] 5 mg PO DAILY 09/17/20 09/17/20 History Allergies Allergy/AdvReac Type Severity Reaction Status Date / Time Kwxnoke-Fot-Uut Reductase AdvReac Mild GENERALIZED Verified 09/17/20 20:45 Inhibitor MUSCLE ACHING-TOLERATES CRESTOR QOD cephalexin monohydrate AdvReac YEAST Verified 09/17/20 20:45 [From Keflex] INFECTION gabapentin [From Neurontin] AdvReac Unknown Verified 09/17/20 20:45 pregabalin [From Lyrica] AdvReac "FELT Verified 09/17/20 20:45 FUNNY" Physical Exam Vitals: Vital Signs Temp Pulse Pulse Resp BP BP Pulse Ox 09/18/20 04:00 97.5 F L 60 20 142/79 100 09/18/20 02:43 97.6 F 56 L 20 121/63 96 09/17/20 22:35 98.1 F 09/17/20 22:25 58 L 18 140/59 97 09/17/20 20:39 72 18 133/57 96 09/17/20 20:00 71 20 158/81 96 09/17/20 19:00 99.4 F 82 20 150/81 98 09/17/20 18:36 83 20 140/64 95 09/17/20 17:38 24 09/17/20 16:30 100.3 F H 77 18 164/83 93 L Intake and Output 09/17/20 09/18/20 09/18/20 22:59 06:59 14:59 Intake Total 50 Balance 50 Intake: Oral 50 Other: Weight 122.47 kg GENERAL: The patient is alert and oriented x3, not in any acute distress. Well developed, well nourished. HEENT: Pupils are round and equally reacting to light. EOMI. No scleral icterus. No conjunctival pallor. Normocephalic, atraumatic. No pharyngeal erythema. No thyromegaly. CARDIOVASCULAR: S1 and S2 present. No murmurs, rubs, or gallops. PULMONARY: Chest is clear to auscultation, no wheezing or crackles. ABDOMEN: Soft, nontender, nondistended, normoactive bowel sounds. No palpable organomegaly. MUSCULOSKELETAL: No joint swelling or deformity. EXTREMITIES: No cyanosis, clubbing, or pedal edema. NEUROLOGICAL: Gross neurological examination did not reveal any focal deficits. SKIN: No rashes. No petechiae Results CBC & Chem 7: 09/17/20 17:31 09/18/20 07:59 Labs: Abnormal Lab Results - Last 24 Hours (Table) 09/17/20 09/17/20 09/17/20 Range/Units 17:31 17:31 21:31 D-Dimer 1.79 H (<0.60) mg/L FEU Sodium 134 L (137-145) mmol/L Glucose 119 H (74-99) mg/dL Calcium 8.3 L (8.4-10.2) mg/dL AST 43 H (14-36) U/L Lactate Dehydrogenase 792 H (313-618) U/L C-Reactive Protein 41.6 H (<10.0) mg/L Total Protein 5.8 L (6.3-8.2) g/dL Albumin 3.2 L (3.5-5.0) g/dL Lipase 322 H (23-300) U/L Ur Specific [place] >1.050 H (1.001-1.035) Urine Protein Trace H (Negative) Urine Ketones 1+ H (Negative) Urine Blood Small H (Negative) Urine RBC 9 H (0-5) /hpf Ur Squamous Epith Cells 7 H (0-4) /hpf Urine Mucus Rare H (None) /hpf 09/18/20 Range/Units 07:59 D-Dimer (<0.60) mg/L FEU Sodium (137-145) mmol/L Glucose (74-99) mg/dL Calcium 8.1 L (8.4-10.2) mg/dL AST (14-36) U/L Lactate Dehydrogenase 720 H (313-618) U/L C-Reactive Protein 42.0 H (<10.0) mg/L Total Protein (6.3-8.2) g/dL Albumin (3.5-5.0) g/dL Lipase (23-300) U/L Ur Specific [place] (1.001-1.035) Urine Protein (Negative) Urine Ketones (Negative) Urine Blood (Negative) Urine RBC (0-5) /hpf Ur Squamous Epith Cells (0-4) /hpf Urine Mucus (None) /hpf Thrombosis Risk Factor Assmnt - Choose All That Apply Any of the Below Risk Factors Present?: No Each Risk Factor Represents 3 Points: Age 75 years or older Thrombosis Risk Factor Assessment Total Risk Factor Score: 3 Thrombosis Risk Factor Assessment Level: Moderate Risk Assessment and Plan Assessment: Bilateral covid pneumonia with mediastinal lymphadenopathy Possible Viral gastroenteritis Diabetes mellitus Hyperlipidemia Hypertension Hypothyroidism Chronic low back pain Irritable bowel syndrome History of asthma/COPD Anxiety, not an active issue Plan: this is a pleasant 85 years old female who presents with covid pneumonia. Continue with a sulfate, vitamin C, dexamethasone. Continue with Lovenox. Pulmonary consult. Continue with gentle hydration. Follow-up C. diff results. Follow-up inflammatory markers Labs and medication were reviewed.. Continue same treatment. Continue with symptomatic treatment. Resume home medication. Monitor lytes and vitals. DVT and GI prophylaxis. Further recommendations depends on the clinical course of the patient DVT prophylaxis: Subcut. Lovenox gi prophylaxis: Ppi Prognosis is guarded
[2020-09-19] MEDS: LEVOTHYROXINE 100 MCG TAB PO SCH (05:44)
[2020-09-19 07:12] LABS: Glucose,Whole Blood 155 mg/dL (75-99)
[2020-09-19] MEDS: INSULIN ASPART (NovoLOG) 100 UNIT/ML VIAL SQ SCH ×4 (07:31→21:11)
[2020-09-19] MEDS: ACETAMINOPHEN TAB 325 MG TAB PO PRN (07:41)
[2020-09-19] MEDS: dexAMETHasone 2 MG TAB PO SCH (07:41)
[2020-09-19] MEDS: ENOXAPARIN 40 MG/0.4 ML SYRINGE SQ SCH (07:41)
[2020-09-19] MEDS: glipiZIDE 5 MG TAB PO SCH (07:42)
[2020-09-19] MEDS: LOSARTAN 50 MG TAB PO SCH (07:42)
[2020-09-19] MEDS: PANTOPRAZOLE 40 MG TABLET PO SCH (07:42)
[2020-09-19] MEDS: PIOGLITAZONE 15 MG TAB PO SCH (07:42)
[2020-09-19] MEDS: FUROSEMIDE 40 MG TAB PO SCH (07:42)
[2020-09-19] MEDS: FAMOTIDINE 20 MG/2 ML VIAL IV SCH ×2 (07:43→21:09)
[2020-09-19] MEDS: ZINC SULFATE 220 MG CAP PO SCH (07:43)
[2020-09-19] MEDS: ASCORBIC ACID 500 MG TAB PO SCH (07:43)
[2020-09-19] MEDS: ATORVASTATIN 10 MG TAB PO SCH (07:43)
[2020-09-19] MEDS ORDERED: HYDROcodone/APAP 5-325MG 1 EACH TAB PO PRN (08:40)
[2020-09-19] MEDS: ALBUTEROL HFA INHALER INHALATION PRN ×2 (09:45→19:05)
[2020-09-19 09:53] LABS: African American GFR (CKD) 66.6 (60.0-200.0); Anion Gap 4.2 mmol/L (4.00-12.00); BUN/Creat Ratio 13.33 Ratio (12.00-20.00); Calcium 8.8 mg/dL (8.7-10.3); Carbon Dioxide 30.8 mmol/L (21.6-31.8); Non-African American GFR(CKD) 57.5 (60.0-200.0); Potassium 5.1 mmol/L (3.5-5.5)
[2020-09-19] MEDS: NYSTATIN 100,000UNIT/GM CREAM 30 GM TUBE TOPICAL SCH ×2 (10:02→21:10)
[2020-09-19 11:29] LABS: Glucose,Whole Blood 128 mg/dL (75-99)
[2020-09-19] MEDS: methylPREDNISolone SOD SUCCI 125 MG/2 ML VIAL IV SCH ×2 (11:34→17:58)
--- NOTE | 2020-09-19 16:09 | P.PN ---
Subjective Progress Note Date: 09/19/20 Principal diagnosis: CoVID 19 pneumonia This is an 85-year-old female diagnosed last ones day with positive covid 19, patient has been sick for the last 2 weeks. Patient had multiple constitutional symptoms for the last 2 weeks including minimal cough, minimal shortness of tiffany th, headaches, congestion, vague aches and pains, but most importantly intermittent episodes of diarrhea. She had fever, body aches, but no nausea no vomiting, no hemoptysis, no chest pain. Patient denies any loss of sensation of smell or taste, denied any other major symptoms. Actually she seems to be more concerned about her diarrhea and about her headaches. No significant pulmonary symptoms except for occasional cough and shortness of breath. Considering her age and considering her multiple symptoms, patient was admitted, and we were asked to see her on consultation. CT angiogram of the chest showed questionable patchy bilateral infiltrates. And atelectasis. Patient had adequate s aturations on room air, however she was placed on 4 L nasal cannula, and her O2 saturation was 100%. The lowest O2 saturations recorded on room air was 93%. The patient is seen today 09/19/2020 in follow-up on the regular medical floor. She is currently awake and alert in no acute distress. She is more bronchus spastic and wheezy today compared to yesterday. He is maintaining O2 saturations in the 90s on 4 L/m per nasal cannula. She's currently afebrile. Hemodynamically stable. Sodium 132. Potassium 5.1. Creatinine 0.9. Objective - Vital Signs Vital signs: Vital Signs Temp 98.6 F 09/19/20 14:14 Pulse 75 09/19/20 14:14 Resp 17 09/19/20 08:00 BP 120/71 09/19/20 14:14 Pulse Ox 92 L 09/19/20 14:14 Intake & Output 09/18/20 09/19/20 09/19/20 18:59 06:59 18:59 Intake Total 75 Balance 75 Weight 126.5 kg Intake: Intake, IV Titration 75 Amount Sodium Chloride 0.9% 1, 75 000 ml @ 50 mls/hr IV . Q20H [facility] Rx#:[id number] Other: # Voids 2 2 - Exam Physical Exam: Revealed 85-year-old female in no distress. On 4 L nasal cannula Head: Atraumatic, normocephalic. HEENT:[Neck is supple.] [No neck masses.] [No thyromegaly.] [No JVD.] PERRLA, EOMI, nonicteric. Chest: End expiratory wheeze, few scattered rhonchi Cardiac Exam: [Normal S1 and S2, no S3 gallop, no murmur.] Abdomen: [Soft, nontender, no megaly, no rebound, no guarding, normal bowel sounds.] Extremities: [No clubbing, no edema, no cyanosis.] Neurological Exam: [No focal neurologic deficit.] Alert oriented 3. Psychiatric: Normal mood affect and normal mental status examination. Skin: No rashes. - Labs CBC & Chem 7: 09/17/20 17:31 09/19/20 05:52 Labs: Abnormal Lab Results - Last 24 Hours (Table) 09/18/20 09/19/20 09/19/20 Range/Units 20:25 05:52 07:07 Est GFR (CKD-EPI)NonAf 57.5 L (60.0-200.0) Glucose 150 H (70-110) mg/dL POC Glucose (mg/dL) 235 H 155 H (75-99) mg/dL 09/19/20 Range/Units 11:28 Est GFR (CKD-EPI)NonAf (60.0-200.0) Glucose (70-110) mg/dL POC Glucose (mg/dL) 128 H (75-99) mg/dL Microbiology - Last 24 Hours (Table) 09/17/20 17:31 Blood Culture - Preliminary Blood No Growth after 24 hours Assessment and Plan Assessment: Acute covid19 pneumonitis Acute gastroenteritis secondary to covid 19 infection. Acute viral illness History of type 2 diabetes. Benign essential hypertension. History of hypothyroidism. History of dyslipidemia. Questionable history of asthma, patient is not maintained on any bronchodilators. Chika: The patient was seen and evaluated by Dr. Dempsey. She is somewhat bronchospastic and wheezy today Add Symbicort and discontinue dexamethasone, initiate IV Solu-Medrol Repeat chest x-ray in a.m. We'll continue to follow I, the cosigning physician, performed a history & physical examination of the patient. Lungs sounds with bilateral end expiratory wheeze, few scattered rhonchi. Maintaining good O2 saturations in the 90s on 4 L/m per nasal cannula. I discussed the assessment and plan of care with my nurse practitioner, Kaley Kiran. I attest to the above note as dictated by her.
[2020-09-19 16:41] LABS: Glucose,Whole Blood 259 mg/dL (75-99)
[2020-09-19] MEDS: SODIUM CHLORIDE 0.9% 1,000 ML IV SCH (17:35)
--- NOTE | 2020-09-19 18:03 | P.PN ---
Subjective This is a pleasant 85 years old female with past medical history of asthma/COPD, diabetes mellitus, hyperlipidemia, hypertension, osteoarthritis, hypothyroidism, chronic low back pain. Irritable bowel syndrome, anxiety Patient states that she was diagnosed with positive Covid test about 5 days ago on 09/13. And this time presents because of continuous diarrhea without improvement associated with some nausea vomiting and low-grade fever and de creased appetite. Patient vomited while she was in the emergency room, also she is complaining of from nausea and has diarrhea for the last 2 days about twice per day. No significant abdominal pain, may be some Vitals are stable and patient is afebrile currently however she had low-grade temperature at 100.3 on admission. She is saturating 100% and a 3 L oxygen via nasal cannula. She was 93% on room air on admission Labs unremarkable including CBC, BMP, liver enzymes and urine analysis. Inf lammatory markers are elevated with lactate dehydrogenase at 7020, C-reactive protein at 42. D-dimer is slightly elevated at 1.7 EKG showing normal sinus rhythm at [address]-T changes. CTA of the chest: No evidence of pulmonary embolism. There is diffuse nonspecific anterior mediastinal lymph nodes measuring up to 1.5 cm which are new compared to old exam. Patchy bilateral lower lobe pulmonary infiltrates increased compared to old exam 09/19/2020 Patient was awake and sitting in bed not in significant respiratory distress however on exam she has expiratory wheezing. She states that her main concerns is with abdominal discomfort and diarrhea, she has 1-2 times lose bowel movement per day. However staff C. diff was not tested because her stool was more formed today as per hospital/lab protocol. Oral thrush also noted in her mouth. She is hemodynamically stable. Saturating 97% on 4 L oxygen via nasal cannula Labs look stable. Pulmonary team on the case and the recommended to switch her dexamethasone to Solu-Medrol Continue with gentle hydration and follow-up chest x-ray in the morning. Continue with pain management Objective - Vital Signs Vital signs: Vital Signs Temp 99 F 09/19/20 17:57 Pulse 63 09/19/20 17:57 Resp 17 09/19/20 08:00 BP 145/90 09/19/20 17:57 Pulse Ox 97 09/19/20 17:57 Intake & Output 11/25/20 11/26/20 11/26/20 18:59 06:59 18:59 Intake Total 75 Balance 75 Weight 126.5 kg Intake: Intake, IV Titration 75 Amount Sodium Chloride 0.9% 1, 75 000 ml @ 50 mls/hr IV . Q20H [facility] Rx#:[id number] Other: # Voids 2 2 - Exam GENERAL: The patient is alert and oriented x3, not in any acute distress. Well developed, well nourished. HEENT: Pupils are round and equally reacting to light. EOMI. No scleral icterus. No conjunctival pallor. Normocephalic, atraumatic. No pharyngeal erythema. No thyromegaly. CARDIOVASCULAR: S1 and S2 present. No murmurs, rubs, or gallops. -PULMONARY: Chest is clear to auscultation, bilateral expiratory wheezing ABDOMEN: Soft, nontender, nondistended, normoactive bowel sounds. No palpable organomegaly. MUSCULOSKELETAL: No joint swelling or deformity. EXTREMITIES: No cyanosis, clubbing, or pedal edema. NEUROLOGICAL: Gross neurological examination did not reveal any focal deficits. SKIN: No rashes. no petechiae. - Labs CBC & Chem 7: 09/17/20 17:31 09/19/20 05:52 Labs: Abnormal Lab Results - Last 24 Hours (Table) 09/18/20 09/19/20 09/19/20 Range/Units 20:25 05:52 07:07 Est GFR (CKD-EPI)NonAf 57.5 L (60.0-200.0) Glucose 150 H (70-110) mg/dL POC Glucose (mg/dL) 235 H 155 H (75-99) mg/dL 09/19/20 09/19/20 Range/Units 11:28 16:40 Est GFR (CKD-EPI)NonAf (60.0-200.0) Glucose (70-110) mg/dL POC Glucose (mg/dL) 128 H 259 H (75-99) mg/dL Microbiology - Last 24 Hours (Table) 09/17/20 17:31 Blood Culture - Preliminary Blood No Growth after 24 hours Assessment and Plan Assessment: Bilateral covid pneumonia with mediastinal lymphadenopathy Acute Viral gastroenteritis, mostly secondary to Covid Diabetes mellitus Hyperlipidemia Hypertension Hypothyroidism Chronic low back pain Irritable bowel syndrome History of asthma/COPD Anxiety, not an active issue Plan: this is a pleasant 85 years old female who presents with covid pneumonia. Continue with a sulfate, vitamin C, serous chin to Solu-Medrol Continue with Lovenox. Pulmonary consult. Continue with gentle hydration. Follow-up C. diff results. Follow-up inflammatory markers Labs and medication were reviewed.. Continue same treatment. Continue with symptomatic treatment. Resume home medication. Monitor lytes and vitals. DVT and GI prophylaxis. Further recommendations depends on the clinical course of the patient DVT prophylaxis: Subcut. Lovenox gi prophylaxis: Ppi Prognosis is guarded
[2020-09-19] MEDS: SYMBICORT 160-4.5 MCG INHALER INHALATION SCH (19:05)
[2020-09-19 20:49] LABS: Glucose,Whole Blood 252 mg/dL (75-99)
[2020-09-20] MEDS: methylPREDNISolone SOD SUCCI 125 MG/2 ML VIAL IV SCH ×4 (00:39→17:18)
[2020-09-20] MEDS: LEVOTHYROXINE 100 MCG TAB PO SCH (06:07)
[2020-09-20 07:04] LABS: Glucose,Whole Blood 219 mg/dL (75-99)
[2020-09-20] MEDS: FUROSEMIDE 40 MG TAB PO SCH (07:35)
[2020-09-20] MEDS: ASCORBIC ACID 500 MG TAB PO SCH (07:35)
[2020-09-20] MEDS: ATORVASTATIN 10 MG TAB PO SCH (07:35)
[2020-09-20] MEDS: PIOGLITAZONE 15 MG TAB PO SCH (07:35)
[2020-09-20] MEDS: LOSARTAN 50 MG TAB PO SCH (07:35)
[2020-09-20] MEDS: INSULIN ASPART (NovoLOG) 100 UNIT/ML VIAL SQ SCH ×4 (07:35→21:45)
[2020-09-20] MEDS: ZINC SULFATE 220 MG CAP PO SCH (07:35)
[2020-09-20] MEDS: PANTOPRAZOLE 40 MG TABLET PO SCH (07:35)
[2020-09-20] MEDS: ENOXAPARIN 40 MG/0.4 ML SYRINGE SQ SCH (07:38)
[2020-09-20] MEDS: FAMOTIDINE 20 MG/2 ML VIAL IV SCH (07:38)
[2020-09-20] MEDS: glipiZIDE 5 MG TAB PO SCH (07:38)
[2020-09-20] MEDS: NYSTATIN 100,000UNIT/GM CREAM 30 GM TUBE TOPICAL SCH ×2 (07:39→21:46)
--- NOTE | 2020-09-20 07:41 | XR ---
EXAMINATION TYPE: XR chest 1V portable DATE OF EXAM: 09/20/2020 COMPARISON: 01/14/2016 INDICATION: CHF, Covid TECHNIQUE: Single frontal view of the chest is obtained. FINDINGS: The heart size is normal. The pulmonary vasculature is normal. Mild left lower lobe infiltrate is present. This can be compatible with atypical pneumonia in the pro per clinical setting. IMPRESSION: 1. Mild left lower lobe infiltrate, correlate for atypical pneumonia.
[2020-09-20] MEDS: ALBUTEROL HFA INHALER INHALATION PRN ×3 (08:29→19:52)
[2020-09-20] MEDS: SYMBICORT 160-4.5 MCG INHALER INHALATION SCH ×2 (08:29→19:53)
[2020-09-20] MEDS ORDERED: MAGNESIUM HYDROXIDE 2,400 MG/10 ML CUP PO PRN (09:28)
[2020-09-20 09:30] LABS: African American GFR (CKD) 58.7 (60.0-200.0); Anion Gap 5.3 mmol/L (4.00-12.00); C Reactive Protein 1.9 mg/dL (0.0-0.8); Carbon Dioxide 31.7 mmol/L (21.6-31.8); Ferritin 363.7 ng/mL (10.0-291.0); Non-African American GFR(CKD) 50.6 (60.0-200.0)
[2020-09-20 11:45] LABS: Glucose,Whole Blood 237 mg/dL (75-99)
--- NOTE | 2020-09-20 11:49 | XR ---
EXAMINATION TYPE: XR KUB portable DATE OF EXAM: 09/20/2020 COMPARISON: 04/05/2017 INDICATION: Evaluate for constipation TECHNIQUE: Single view abdomen supine view FINDINGS: There is a normal bowel gas pattern. No significant fecal retention is evident. No mass effect is srinivasa dent. Psoas margins are normal. No organomegaly is present. IMPRESSION: 1. Unremarkable Abdomen
--- NOTE | 2020-09-20 15:41 | P.PN ---
Subjective Progress Note Date: 09/20/20 Principal diagnosis: CoVID 19 pneumonia This is an 85-year-old female diagnosed last ones day with positive covid 19, patient has been sick for the last 2 weeks. Patient had multiple constitutional symptoms for the last 2 weeks including minimal cough, minimal shortness of tiffany th, headaches, congestion, vague aches and pains, but most importantly intermittent episodes of diarrhea. She had fever, body aches, but no nausea no vomiting, no hemoptysis, no chest pain. Patient denies any loss of sensation of smell or taste, denied any other major symptoms. Actually she seems to be more concerned about her diarrhea and about her headaches. No significant pulmonary symptoms except for occasional cough and shortness of breath. Considering her age and considering her multiple symptoms, patient was admitted, and we were asked to see her on consultation. CT angiogram of the chest showed questionable patchy bilateral infiltrates. And atelectasis. Patient had adequate s aturations on room air, however she was placed on 4 L nasal cannula, and her O2 saturation was 100%. The lowest O2 saturations recorded on room air was 93%. The patient is seen today 09/19/2020 in follow-up on the regular medical floor. She is currently awake and alert in no acute distress. She is more bronchus spastic and wheezy today compared to yesterday. He is maintaining O2 saturations in the 90s on 4 L/m per nasal cannula. She's currently afebrile. Hemodynamically stable. Sodium 132. Potassium 5.1. Creatinine 0.9. The patient is seen today 09/20/2020 in follow-up on the regular medical floor. She is currently resting comfortably in bed. Awake and alert in no acute distress. She is maintaining O2 saturations in the mid 90s on room air. She's afebrile. Denies any worsening shortness of breath, cough or congestion. Chest x-ray reveals mild left lower lobe infiltrate, atypical pneumonia. Blood cultures revealed no growth. Sodium 142. Potassium 5.0. Creatinine 1.0. Ferritin 363. LDH 334. C-reactive protein 1.9. Her main complaint today is that of constipation. She is receiving milk of magnesia. KUB revealed nonspecific abdomen. Objective - Vital Signs Vital signs: Vital Signs Temp 98.3 F 09/20/20 14:00 Pulse 72 09/20/20 14:00 Resp 16 09/20/20 14:00 BP 128/66 09/20/20 14:00 Pulse Ox 95 09/20/20 14:00 Intake & Output 09/19/20 09/20/20 09/20/20 18:59 06:59 18:59 Weight 128 kg Other: # Voids 2 2 2 # Bowel Movements 0 - Exam Physical Exam: Revealed 85-year-old female in no distress. On room air Head: Atraumatic, normocephalic. HEENT:[Neck is supple.] [No neck masses.] [No thyromegaly.] [No JVD.] PERRLA, EOMI, nonicteric. Chest: Lungs sounds with few scattered rhonchi Cardiac Exam: [Normal S1 and S2, no S3 gallop, no murmur.] Abdomen: [Soft, nontender, no megaly, no rebound, no guarding, normal bowel sounds.] Extremities: [No clubbing, no edema, no cyanosis.] Neurological Exam: [No focal neurologic deficit.] Alert oriented 3. Psychiatric: Normal mood affect and normal mental status examination. Skin: No rashes. - Labs CBC & Chem 7: 09/17/20 17:31 09/20/20 06:23 Labs: Abnormal Lab Results - Last 24 Hours (Table) 09/19/20 09/19/20 09/20/20 Range/Units 16:40 20:47 06:23 Est GFR (CKD-EPI)AfAm 58.7 L (60.0-200.0) Est GFR (CKD-EPI)NonAf 50.6 L (60.0-200.0) Glucose 229 H (70-110) mg/dL POC Glucose (mg/dL) 259 H 252 H (75-99) mg/dL Ferritin 363.7 H (10.0-291.0) ng/mL Lactate Dehydrogenase 334 H (120-246) U/L C-Reactive Protein 1.9 H (0.0-0.8) mg/dL 09/20/20 09/20/20 Range/Units 07:02 11:43 Est GFR (CKD-EPI)AfAm (60.0-200.0) Est GFR (CKD-EPI)NonAf (60.0-200.0) Glucose (70-110) mg/dL POC Glucose (mg/dL) 219 H 237 H (75-99) mg/dL Ferritin (10.0-291.0) ng/mL Lactate Dehydrogenase (120-246) U/L C-Reactive Protein (0.0-0.8) mg/dL Microbiology - Last 24 Hours (Table) 09/17/20 17:31 Blood Culture - Preliminary Blood No Growth after 48 hours Assessment and Plan Assessment: Acute covid19 pneumonitis Acute gastroenteritis secondary to covid 19 infection. KUB revealed unremarkable abdomen Acute viral illness History of type 2 diabetes. Benign essential hypertension. History of hypothyroidism. History of dyslipidemia. Questionable history of asthma, patient is not maintained on any bronchodilators. Chika: The patient was seen and evaluated by Dr. Dempsey. She is stable from the pulmonary standpoint On room air Cleared for discharge once cleared medically I, the cosigning physician, performed a history & physical examination of the patient. Lungs sounds with bilateral end expiratory wheeze, few scattered rhonchi. Maintaining good O2 saturations in the 90s on 4 L/m per nasal cannula. I discussed the assessment and plan of care with my nurse practitioner, Kaley Kiran. I attest to the above note as dictated by her.
[2020-09-20 16:46] LABS: Glucose,Whole Blood 145 mg/dL (75-99)
[2020-09-20 20:14] LABS: Glucose,Whole Blood 287 mg/dL (75-99)
[2020-09-20] MEDS: FAMOTIDINE 20 MG TAB PO SCH (21:45)
[2020-09-21] MEDS: methylPREDNISolone SOD SUCCI 125 MG/2 ML VIAL IV SCH ×4 (00:15→16:57)
--- NOTE | 2020-09-21 00:24 | P.PN ---
Subjective This is a pleasant 85 years old female with past medical history of asthma/COPD, diabetes mellitus, hyperlipidemia, hypertension, osteoarthritis, hypothyroidism, chronic low back pain. Irritable bowel syndrome, anxiety Patient states that she was diagnosed with positive Covid test about 5 days ago on 09/13. And this time presents because of continuous diarrhea without improvement associated with some nausea vomiting and low-grade fever and de creased appetite. Patient vomited while she was in the emergency room, also she is complaining of from nausea and has diarrhea for the last 2 days about twice per day. No significant abdominal pain, may be some Vitals are stable and patient is afebrile currently however she had low-grade temperature at 100.3 on admission. She is saturating 100% and a 3 L oxygen via nasal cannula. She was 93% on room air on admission Labs unremarkable including CBC, BMP, liver enzymes and urine analysis. Inf lammatory markers are elevated with lactate dehydrogenase at 7020, C-reactive protein at 42. D-dimer is slightly elevated at 1.7 EKG showing normal sinus rhythm at [address]-T changes. CTA of the chest: No evidence of pulmonary embolism. There is diffuse nonspecific anterior mediastinal lymph nodes measuring up to 1.5 cm which are new compared to old exam. Patchy bilateral lower lobe pulmonary infiltrates increased compared to old exam 09/19/2020 Patient was awake and sitting in bed not in significant respiratory distress however on exam she has expiratory wheezing. She states that her main concerns is with abdominal discomfort and diarrhea, she has 1-2 times lose bowel movement per day. However staff C. diff was not tested because her stool was more formed today as per hospital/lab protocol. Oral thrush also noted in her mouth. She is hemodynamically stable. Saturating 97% on 4 L oxygen via nasal cannula Labs look stable. Pulmonary team on the case and the recommended to switch her dexamethasone to Solu-Medrol Continue with gentle hydration and follow-up chest x-ray in the morning. Continue with pain management 09/20/2020 Patient is a pleasant 85 years old female with Covid pneumonia. Patient is on room air and pulmonary services already cleared the patient for discharge from their perspective Patient had some abdominal discomfort today but KUB was negative. Labs look stable. Patient is afebrile. Patient is able to eat with no difficulties 75- 100% of her meals. Magnesium is normal 2.0 Possible discharge in 24-48 hours if she is stable and keeps improvement Objective - Vital Signs Vital signs: Vital Signs Temp 98.6 F 09/20/20 18:00 Pulse 69 09/20/20 18:00 Resp 16 09/20/20 18:00 BP 150/55 09/20/20 18:00 Pulse Ox 95 09/20/20 18:00 Intake & Output 09/20/20 09/20/20 09/21/20 06:59 18:59 06:59 Output Total 1 Balance -1 Weight 128 kg Output: Stool 1 Other: # Voids 2 1 # Bowel Movements 0 - Exam GENERAL: The patient is alert and oriented x3, not in any acute distress. Well developed, well nourished. HEENT: Pupils are round and equally reacting to light. EOMI. No scleral icterus. No conjunctival pallor. Normocephalic, atraumatic. No pharyngeal erythema. No thyromegaly. CARDIOVASCULAR: S1 and S2 present. No murmurs, rubs, or gallops. -PULMONARY: Chest is clear to auscultation, bilateral expiratory wheezing ABDOMEN: Soft, nontender, nondistended, normoactive bowel sounds. No palpable organomegaly. MUSCULOSKELETAL: No joint swelling or deformity. EXTREMITIES: No cyanosis, clubbing, or pedal edema. NEUROLOGICAL: Gross neurological examination did not reveal any focal deficits. SKIN: No rashes. no petechiae. - Labs CBC & Chem 7: 09/17/20 17:31 09/20/20 06:23 Labs: Abnormal Lab Results - Last 24 Hours (Table) 09/19/20 09/20/20 09/20/20 Range/Units 20:47 06:23 07:02 Est GFR (CKD-EPI)AfAm 58.7 L (60.0-200.0) Est GFR (CKD-EPI)NonAf 50.6 L (60.0-200.0) Glucose 229 H (70-110) mg/dL POC Glucose (mg/dL) 252 H 219 H (75-99) mg/dL Ferritin 363.7 H (10.0-291.0) ng/mL Lactate Dehydrogenase 334 H (120-246) U/L C-Reactive Protein 1.9 H (0.0-0.8) mg/dL 09/20/20 09/20/20 09/20/20 Range/Units 11:43 16:44 20:12 Est GFR (CKD-EPI)AfAm (60.0-200.0) Est GFR (CKD-EPI)NonAf (60.0-200.0) Glucose (70-110) mg/dL POC Glucose (mg/dL) 237 H 145 H 287 H (75-99) mg/dL Ferritin (10.0-291.0) ng/mL Lactate Dehydrogenase (120-246) U/L C-Reactive Protein (0.0-0.8) mg/dL Microbiology - Last 24 Hours (Table) 09/17/20 17:31 Blood Culture - Preliminary Blood No Growth after 72 hours Assessment and Plan Assessment: Bilateral covid pneumonia with mediastinal lymphadenopathy Acute Viral gastroenteritis, mostly secondary to Covid Diabetes mellitus Hyperlipidemia Hypertension Hypothyroidism Chronic low back pain Irritable bowel syndrome History of asthma/COPD Anxiety, not an active issue Plan: this is a pleasant 85 years old female who presents with covid pneumonia. Continue with a sulfate, vitamin C, serous chin to Solu-Medrol Continue with Lovenox. Pulmonary consult. Continue with gentle hydration. Follow-up C. diff results. Follow-up inflammatory markers Labs and medication were reviewed.. Continue same treatment. Continue with symptomatic treatment. Resume home medication. Monitor lytes and vitals. DVT and GI prophylaxis. Further recommendations depends on the clinical course of the patient DVT prophylaxis: Subcut. Lovenox gi prophylaxis: Ppi Prognosis is guarded
[2020-09-21 02:20] VITALS: RESP 18
[2020-09-21] MEDS: LEVOTHYROXINE 100 MCG TAB PO SCH (05:37)
[2020-09-21 07:14] LABS: Glucose,Whole Blood 237 mg/dL (75-99)
[2020-09-21] MEDS: ALBUTEROL HFA INHALER INHALATION PRN ×2 (08:10→13:54)
[2020-09-21] MEDS: SYMBICORT 160-4.5 MCG INHALER INHALATION SCH (08:10)
[2020-09-21] MEDS: LOSARTAN 50 MG TAB PO SCH (08:35)
[2020-09-21] MEDS: ENOXAPARIN 40 MG/0.4 ML SYRINGE SQ SCH (08:35)
[2020-09-21] MEDS: FUROSEMIDE 40 MG TAB PO SCH (08:35)
[2020-09-21] MEDS: FAMOTIDINE 20 MG TAB PO SCH (08:35)
[2020-09-21] MEDS: ASCORBIC ACID 500 MG TAB PO SCH (08:35)
[2020-09-21] MEDS: glipiZIDE 5 MG TAB PO SCH (08:35)
[2020-09-21] MEDS: ZINC SULFATE 220 MG CAP PO SCH (08:35)
[2020-09-21] MEDS: ATORVASTATIN 10 MG TAB PO SCH (08:35)
[2020-09-21] MEDS: PIOGLITAZONE 15 MG TAB PO SCH (08:35)
[2020-09-21] MEDS: PANTOPRAZOLE 40 MG TABLET PO SCH (08:35)
[2020-09-21] MEDS: INSULIN ASPART (NovoLOG) 100 UNIT/ML VIAL SQ SCH ×3 (08:36→16:58)
[2020-09-21] MEDS: NYSTATIN 100,000UNIT/GM CREAM 30 GM TUBE TOPICAL SCH (08:36)
[2020-09-21] MEDS ORDERED: guaiFENesin-DM 100-10MG/5ML 10 ML CUP PO PRN (10:05)
[2020-09-21] MEDS ORDERED: HYDROcodone/APAP 7.5-325MG 1 EACH TAB PO ONE (10:05)
[2020-09-21 11:15] LABS: Glucose,Whole Blood 271 mg/dL (75-99)
[2020-09-21 14:25] VITALS: BP 134/66; PULSE 68; TEMP 98.7
[2020-09-21 16:34] LABS: Glucose,Whole Blood 204 mg/dL (75-99)
== END 2020-09-21 18:15 | disposition home health service (06) | DRG 177 ==
LOC: EC 16:12 → 3SCARD 20:26 → 4SSUR 09-18 14:51
PROVIDERS: ADMIT Hospitalist; ATTEND Hospitalist
DX: U07.1 COVID-19 (principal); J12.89 Other viral pneumonia; B37.0 Candidal stomatitis; A08.39 Other viral enteritis; J44.0 Chronic obstructive pulmonary disease with (acute) lower respiratory infection; E11.9 Type 2 diabetes mellitus without complications; E78.5 Hyperlipidemia, unspecified; E03.9 Hypothyroidism, unspecified; K58.9 Irritable bowel syndrome, unspecified; G89.29 Other chronic pain; R09.02 Hypoxemia; I83.90 Asymptomatic varicose veins of unspecified lower extremity; R59.0 Localized enlarged lymph nodes; I10 Essential (primary) hypertension; M19.90 Unspecified osteoarthritis, unspecified site; M54.5 Low back pain; Z79.84 Long term (current) use of oral hypoglycemic drugs; Z79.890 Hormone replacement therapy; Z79.51 Long term (current) use of inhaled steroids; Z79.899 Other long term (current) drug therapy; Z90.49 Acquired absence of other specified parts of digestive tract; Z90.89 Acquired absence of other organs; Z87.19 Personal history of other diseases of the digestive system; Z96.651 Presence of right artificial knee joint; Z90.2 Acquired absence of lung [part of]; Z87.01 Personal history of pneumonia (recurrent); Z98.890 Other specified postprocedural states; Z86.59 Personal history of other mental and behavioral disorders; Z88.1 Allergy status to other antibiotic agents; Z88.8 Allergy status to other drugs, medicaments and biological substances; Z82.3 Family history of stroke; Z80.52 Family history of malignant neoplasm of bladder; Z83.6 Family history of other diseases of the respiratory system; Z82.5 Family history of asthma and other chronic lower respiratory diseases
CPT/HCPCS: 36415; 71045; 71275; 74018; 80048; 80053; 81001; 82728; 83615; 83690; 83735; 85025; 85379; 86140; 87040; 93005; 94640; 96361; 96372; 96374; 96375; 96376; 99285

== ENCOUNTER 2020-10-14 12:06 | Inpatient (IN) | payer MEDICARE ==
[2020-10-14 14:04] LABS: Basophils # (A) 0.2 k/uL (0-0.2); Basophils % (A) 2 %; Eosinophils # (A) 0.3 k/uL (0-0.7); Eosinophils % (A) 4 %; HCT 39.3 % (34.0-46.0); HGB 12.9 gm/dL (11.4-16.0); Lymphocytes # (A) 1.7 k/uL (1.0-4.8); Lymphocytes % (A) 21 %; MCH 29.6 pg (25.0-35.0); MCHC 32.7 g/dL (31.0-37.0); MCV 90.4 fL (80.0-100.0); Mean Platelet Volume 7.4; Monocytes # (A) 0.6 k/uL (0-1.0); Monocytes % (A) 7 %; Neutrophils % (A) 62 %; Platelet Count 320 k/uL (150-450); RBC 4.35 m/uL (3.80-5.40); RDW 13.7 % (11.5-15.5); WBC 8.1 k/uL (3.8-10.6)
[2020-10-14] MEDS ORDERED: MORPHINE SULFATE 4 MG/ML SYRINGE IVP STA ×2 (14:10→16:13)
[2020-10-14 14:16] LABS: Albumin 3.4 g/dL (3.5-5.0); Calcium 8.6 mg/dL (8.4-10.2); Potassium 4.1 mmol/L (3.5-5.1); Total Bilirubin 0.8 mg/dL (0.2-1.3); Total Protein 6.3 g/dL (6.3-8.2)
[2020-10-14 14:33] LABS: Partial Thromboplastin Time 33.7 sec (22.0-30.0)
[2020-10-14 15:11] LABS: Appearance,Urine Clear (Clear); Bilirubin,Urine Negative (Negative); Blood,Urine Negative (Negative); Color,Urine Yellow; Glucose,Urine (UA) Negative (Negative); Ketones,Urine Negative (Negative); Leukocyte Esterase,Urine Negative (Negative); Nitrite,Urine Negative (Negative); PH, Urine 5.5 (5.0-8.0); Protein,Urine Negative (Negative); Specific Gravity,Urine 1.021 (1.001-1.035); Urobilinogen,Urine <2.0 mg/dL (<2.0)
--- NOTE | 2020-10-14 15:22 | CT ---
EXAMINATION TYPE: CT abdomen pelvis w con DATE OF EXAM: 10/14/2020 COMPARISON: Prior CT 01/14/2016 HISTORY: LLQ pain with bowel changes. CT DLP: 2722.7 mGycm Automated exposure control for dose reduction was used. TECHNIQUE: Helical acquisition of images from the lung bases through the pelvis have been completed. CONTRAST: Performed without Oral Contrast and with IV Contrast, patient injected with 80 mL of Isovue 300. FINDINGS: Small hiatal hernia noted. LUNG BASES: No significant abnormality is appreciated. AORTA: No significant abnormality is appreciated. LIVER/GB: No significant abnormality is appreciated. PANCREAS: No significant abnormality is seen. SPLEEN: No significant abnormality is seen. ADRENALS: No significant abnormality is seen. KIDNEYS: No significant abnormality is seen. REPRODUCTIVE ORGANS: Enhancing focus within the myometrium measures approximately 16 mm consistent wi th fibroid BOWEL: Extensive diverticular change noted within the sigmoid colon. Axial image #63, 62 she is dive rticular change with pericolonic inflammatory change, no evident abscess. FREE AIR: No Free Air visible. ASCITES: None visible. PELVIC ADENOPATHY: None visualized. RETROPERITONEAL ADENOPATHY: No Retroperitoneal Adenopathy visible. URINARY BLADDER: No significant abnormality is seen. OSSEOUS STRUCTURES: No degenerative disc changes, facet arthropathy noted especially in the lower westley mbar spine. IMPRESSION: DIVERTICULITIS. NO EVIDENT ABSCESS.
[2020-10-14] MEDS ORDERED: metroNIDAZOLE-NS PMX 500 MG in SALINE 1 100ML.BAG IVPB STA (16:11)
[2020-10-14] MEDS ORDERED: LEVOFLOXACIN 750MG-D5W PMX 750 MG in DEXTROSE/WATER 1 150ML.BAG IVPB STA (16:11)
--- NOTE | 2020-10-14 16:13 | ED ---
Abdominal Pain HPI - General Chief Complaint: Abdominal Pain Stated Complaint: abd/rectal pain Time Seen by Provider: 10/14/20 13:09 Source: patient Mode of arrival: wheelchair Limitations: no limitations - History of Present Illness Initial Comments: Patient is an 85-year-old female with past medical history of diabetes, COPD who presents to the emergency room with reported left lower quadrant pain and rectal pain. Patient reports that the symptoms have been intermittent for the past week. Denies associated nausea or vomiting. Does admit to chronic constipation which has not been any worse. No melenic stools or hematochezia. Admits to dysuria, no hematuria or difficulty voiding. No back or flank pain. No fevers or chills. No history of similar in the past. She is status post cholecystectomy, hemorrhoid surgery and hernia repair. She denies any chest pain or shortness of breath. Has not taken any medications for her symptoms. No other alleviating, precipitating or modifying factors - Related Data Home Medications Medication Instructions Recorded Confirmed Rosuvastatin [Crestor] 10 mg PO DAILY 09/17/14 10/14/20 Losartan [Cozaar] 50 mg PO DAILY 11/21/15 10/14/20 Levothyroxine Sodium [Synthroid] 100 mcg PO DAILY 11/22/15 10/14/20 Furosemide [Lasix] 40 mg PO DAILY@1300 09/17/20 10/14/20 Mometasone/Formoterol [Dulera 100 2 puff PO RT-BID 09/17/20 10/14/20 Mcg-5 Mcg Inhaler] Nystatin 100,000Unit/gm Cream 1 applic TOPICAL BID PRN 09/17/20 10/14/20 [Mycostatin Cream] Pioglitazone [Actos] 15 mg PO DAILY 09/17/20 10/14/20 glipiZIDE [Glucotrol] 5 mg PO DAILY 09/17/20 10/14/20 Pantoprazole [Protonix] 40 mg PO DAILY 10/14/20 10/14/20 Previous Rx's Medication Instructions Recorded Acetaminophen Tab [Tylenol] 650 mg PO Q6HR PRN #30 tab 09/21/20 Albuterol Inhaler [Ventolin Hfa 2 puff INHALATION RT-Q4H PRN #1 09/21/20 Inhaler] puff Ascorbic Acid [Vitamin C] 500 mg PO DAILY #30 tab 09/21/20 Zinc Sulfate [Orazinc] 220 mg PO DAILY #30 cap 09/21/20 guaiFENesin-DM 100-10MG/5ML 10 ml PO Q8H PRN #100 ml 09/21/20 [Robitussin DM] Levofloxacin [Levaquin] 250 mg PO DAILY 1 Days #7 tab 10/21/20 metroNIDAZOLE [Flagyl] 500 mg PO Q8HR 7 Days #21 tab 10/21/20 Allergies Allergy/AdvReac Type Severity Reaction Status Date / Time Fbohspr-Zlm-Zty Reductase AdvReac Mild GENERALIZED Verified 10/14/20 16:45 Inhibitor MUSCLE ACHING-TOLERATES CRESTOR QOD cephalexin monohydrate AdvReac YEAST Verified 10/14/20 16:45 [From Keflex] INFECTION gabapentin [From Neurontin] AdvReac Unknown Verified 10/14/20 16:45 pregabalin [From Lyrica] AdvReac "FELT Verified 10/14/20 16:45 FUNNY" Review of Systems ROS Statement: Those systems with pertinent positive or pertinent negative responses have been documented in the HPI. ROS Other: All systems not noted in ROS Statement are negative. Past Medical History Past Medical History: Asthma, COPD, Diabetes Mellitus, Hyperlipidemia, Hypertension, Osteoarthritis (OA), Renal Disease, Thyroid Disorder Additional Past Medical History / Comment(s): CHRONIC BRONCITIS W/ COUGH. LOWER BACK PAIN. PERIPHERAL EDEMA BLE, FEET. Experiencing burning pain in pelvic area, vagina, rectum. Varicose Veins. IBS. RECENT IMPAIRED RENAL FUNCTION BEING MONITORED. History of Any Multi-Drug Resistant Organisms: None Reported Past Surgical History: Adenoidectomy, Cholecystectomy, Hernia Repair, Joint Replacement, Tonsillectomy Additional Past Surgical History / Comment(s): RT KNEE REPLACED. [facility] HERNIA. 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 D&C 2014. HEMORRHOID, FISSURE SURG. Past Anesthesia/Blood Transfusion Reactions: No Reported Reaction Additional Past Anesthesia/Blood Transfusion Reaction / Comment(s): unknown on blood transfusions Past Psychological History: Anxiety Smoking Status: Never smoker Past Alcohol Use History: None Reported Past Drug Use History: None Reported - Past Family History Father Family Medical History: Cancer, CVA/TIA Additional Family Medical History / Comment(s): BLADDER Mother Family Medical History: Asthma, Pneumonia Additional Family Medical History / Comment(s): MOM WHEN PT WAS 5 YRS OLD- SHE THINKS OF LUNG PROBLEMS & ASTHMA General Exam Limitations: no limitations General appearance: alert, in no apparent distress Head exam: Present: atraumatic, normocephalic, normal inspection Eye exam: Present: normal appearance, PERRL, EOMI. Absent: scleral icterus, conjunctival injection, periorbital swelling ENT exam: Present: normal exam, mucous membranes moist Neck exam: Present: normal inspection. Absent: tenderness, meningismus, lymphadenopathy Respiratory exam: Present: normal lung sounds bilaterally. Absent: respiratory distress, wheezes, rales, rhonchi, stridor Cardiovascular Exam: Present: regular rate, normal rhythm, normal heart sounds. Absent: systolic murmur, diastolic murmur, rubs, gallop, clicks GI/Abdominal exam: Present: soft, tenderness, normal bowel sounds. Absent: distended, guarding, rebound, rigid Extremities exam: Present: normal inspection, full ROM, normal capillary refill. Absent: tenderness, pedal edema, joint swelling, calf tenderness Back exam: Present: normal inspection Neurological exam: Present: alert, oriented X3, CN II-XII intact Psychiatric exam: Present: normal affect, normal mood Skin exam: Present: warm, dry, intact, normal color. Absent: rash Course Vital Signs 10/14/20 10/14/20 10/14/20 13:04 17:00 20:35 Temperature 99.2 F 99.1 F 98.6 F Pulse Rate 77 76 80 Respiratory 18 20 20 Rate Blood Pressure 139/63 137/89 146/81 O2 Sat by Pulse 98 98 99 Oximetry Medical Decision Making - Medical Decision Making Upon arrival patient is placed into room 32. A thorough history and physical exam was performed. Peripheral IV is established. Patient was given a dose of morphine. Fluids are started at 75 mL per hour. Laboratory studies are conducted. CT of the patient's abdomen and pelvis was performed which demonstrates acute diverticulitis with no evidence of abscess. Patient was given a dose of Levaquin and Flagyl in the emergency department. Patient is reevaluated and reports that her pain continues. She is given a second dose of morphine. I did recommend hospitalization as the patient does have continued pain. Patient's understood and agreed to this. Discussed the case with Dr. Dozier who agreed to admit the patient. Patient remained in stable condition awaiting a bed on the floor. Surgery and GI will be consultation - Lab Data Result diagrams: 10/26/20 09:15 10/26/20 09:15 Lab Results 10/14/20 10/14/20 10/14/20 Range/Units 13:42 13:42 13:42 WBC 8.1 (3.8-10.6) k/uL RBC 4.35 (3.80-5.40) m/uL Hgb 12.9 (11.4-16.0) gm/dL Hct 39.3 (34.0-46.0) % MCV 90.4 (80.0-100.0) fL MCH 29.6 (25.0-35.0) pg MCHC 32.7 (31.0-37.0) g/dL RDW 13.7 (11.5-15.5) % Plt Count 320 (150-450) k/uL MPV 7.4 Neutrophils % 62 % Lymphocytes % 21 % Monocytes % 7 % Eosinophils % 4 % Basophils % 2 % Neutrophils # 5.0 (1.3-7.7) k/uL Lymphocytes # 1.7 (1.0-4.8) k/uL Monocytes # 0.6 (0-1.0) k/uL Eosinophils # 0.3 (0-0.7) k/uL Basophils # 0.2 (0-0.2) k/uL PT 10.0 (9.0-12.0) sec INR 1.0 (<1.2) APTT 33.7 H (22.0-30.0) sec Sodium (137-145) mmol/L Potassium (3.5-5.1) mmol/L Chloride (98-107) mmol/L Carbon Dioxide (22-30) mmol/L Anion Gap mmol/L BUN (7-17) mg/dL Creatinine (0.52-1.04) mg/dL Est GFR (CKD-EPI)AfAm (>60 ml/min/1.73 sqM) Est GFR (CKD-EPI)NonAf (>60 ml/min/1.73 sqM) Glucose (74-99) mg/dL POC Glucose (mg/dL) (75-99) mg/dL POC Glu Egg Smeller ID Plasma Lactic Acid Manpreet (0.7-2.0) mmol/L Calcium (8.4-10.2) mg/dL Total Bilirubin (0.2-1.3) mg/dL AST (14-36) U/L ALT (4-34) U/L Alkaline Phosphatase (38-126) U/L Total Protein (6.3-8.2) g/dL Albumin (3.5-5.0) g/dL Lipase (23-300) U/L Urine Color Yellow Urine Appearance Clear (Clear) Urine pH 5.5 (5.0-8.0) Ur Specific [place] 1.021 (1.001-1.035) Urine Protein Negative (Negative) Urine Glucose (UA) Negative (Negative) Urine Ketones Negative (Negative) Urine Blood Negative (Negative) Urine Nitrite Negative (Negative) Urine Bilirubin Negative (Negative) Urine Urobilinogen <2.0 (<2.0) mg/dL Ur Leukocyte Esterase Negative (Negative) 10/14/20 10/14/20 10/15/20 Range/Units 13:42 13:42 06:23 WBC (3.8-10.6) k/uL RBC (3.80-5.40) m/uL Hgb (11.4-16.0) gm/dL Hct (34.0-46.0) % MCV (80.0-100.0) fL MCH (25.0-35.0) pg MCHC (31.0-37.0) g/dL RDW (11.5-15.5) % Plt Count (150-450) k/uL MPV Neutrophils % % Lymphocytes % % Monocytes % % Eosinophils % % Basophils % % Neutrophils # (1.3-7.7) k/uL Lymphocytes # (1.0-4.8) k/uL Monocytes # (0-1.0) k/uL Eosinophils # (0-0.7) k/uL Basophils # (0-0.2) k/uL PT (9.0-12.0) sec INR (<1.2) APTT (22.0-30.0) sec Sodium 135 L (137-145) mmol/L Potassium 4.1 (3.5-5.1) mmol/L Chloride 100 (98-107) mmol/L Carbon Dioxide 31 H (22-30) mmol/L Anion Gap 4 mmol/L BUN 16 (7-17) mg/dL Creatinine 1.05 H (0.52-1.04) mg/dL Est GFR (CKD-EPI)AfAm 55 (>60 ml/min/1.73 sqM) Est GFR (CKD-EPI)NonAf 48 (>60 ml/min/1.73 sqM) Glucose 92 (74-99) mg/dL POC Glucose (mg/dL) 94 (75-99) mg/dL POC Glu Egg Smeller ID Plasma Lactic Acid Manpreet 1.3 (0.7-2.0) mmol/L Calcium 8.6 (8.4-10.2) mg/dL Total Bilirubin 0.8 (0.2-1.3) mg/dL AST 29 (14-36) U/L ALT 26 (4-34) U/L Alkaline Phosphatase 67 (38-126) U/L Total Protein 6.3 (6.3-8.2) g/dL Albumin 3.4 L (3.5-5.0) g/dL Lipase 175 (23-300) U/L Urine Color Urine Appearance (Clear) Urine pH (5.0-8.0) Ur Specific [place] (1.001-1.035) Urine Protein (Negative) Urine Glucose (UA) (Negative) Urine Ketones (Negative) Urine Blood (Negative) Urine Nitrite (Negative) Urine Bilirubin (Negative) Urine Urobilinogen (<2.0) mg/dL Ur Leukocyte Esterase (Negative) - EKG Data EKG Comments: EKG demonstrates a sinus rhythm with ventricular rate of 81. VT interval 182. QRS 78. QTC of 469. No acute ST segment elevations. Early PAC Disposition Clinical Impression: Abdominal pain, Diverticulitis Disposition: ADMITTED IP TO THIS [facility] Condition: Stable Is patient prescribed a controlled substance at d/c from ED?: No Decision to Admit Reason: Admit from EC Decision Date: 10/14/20 Decision Time: 16:13
[2020-10-14] MEDS ORDERED: ONDANSETRON 4 MG/2 ML VIAL IVP PRN (16:17)
[2020-10-14] MEDS ORDERED: MORPHINE SULFATE 4 MG/ML SYRINGE IV PRN (16:17)
[2020-10-14] MEDS ORDERED: NALOXONE 0.4 MG/ML 1 ML VIAL IV PRN (16:17)
[2020-10-14] MEDS: SODIUM CHLORIDE 0.9% 1,000 ML IV SCH (16:32)
[2020-10-14] MEDS ORDERED: NYSTATIN 100,000UNIT/GM CREAM 30 GM TUBE TOPICAL PRN (19:48)
[2020-10-14] MEDS: ALBUTEROL HFA INHALER INHALATION PRN (21:30)
[2020-10-14] MEDS: SYMBICORT 80-4.5 MCG INHALER INHALATION SCH (21:30)
[2020-10-15] MEDS: SODIUM CHLORIDE 0.9% 1,000 ML IV SCH ×2 (05:47→20:30)
[2020-10-15] MEDS: LEVOTHYROXINE 100 MCG TAB PO SCH (05:47)
[2020-10-15] MEDS: ACETAMINOPHEN TAB 325 MG TAB PO PRN ×2 (05:53→18:44)
[2020-10-15 06:25] LABS: Glucose,Whole Blood 94 mg/dL (75-99)
[2020-10-15] MEDS ORDERED: LEVOFLOXACIN 500MG-D5W PMX 500 MG in DEXTROSE/WATER 1 100ML.BAG IVPB SCH (08:00)
[2020-10-15] MEDS: ALBUTEROL HFA INHALER INHALATION PRN (08:02)
[2020-10-15] MEDS: SYMBICORT 80-4.5 MCG INHALER INHALATION SCH ×2 (08:03→19:24)
[2020-10-15 08:16] LABS: Basophils % (A) 0 %; Eosinophils # (A) 0.3 k/uL (0-0.7); Eosinophils % (A) 4 %; HCT 38.5 % (34.0-46.0); Hypochromasia Slight; Lymphocytes # (A) 1.3 k/uL (1.0-4.8); Lymphocytes % (A) 18 %; MCH 28.5 pg (25.0-35.0); MCHC 31.3 g/dL (31.0-37.0); MCV 91.1 fL (80.0-100.0); Mean Platelet Volume 7.5; Monocytes # (A) 0.5 k/uL (0-1.0); Monocytes % (A) 6 %; Neutrophils # (A) 5.1 k/uL (1.3-7.7); Neutrophils % (A) 69 %; Platelet Count 328 k/uL (150-450); RBC 4.22 m/uL (3.80-5.40); WBC 7.4 k/uL (3.8-10.6)
[2020-10-15 08:39] LABS: Calcium 8.3 mg/dL (8.4-10.2); Potassium 4.2 mmol/L (3.5-5.1)
[2020-10-15] MEDS: metroNIDAZOLE-NS PMX 500 MG in SALINE 1 100ML.BAG IVPB SCH ×2 (08:59→17:56)
[2020-10-15] MEDS: ZINC SULFATE 220 MG CAP PO SCH (08:59)
[2020-10-15] MEDS: LOSARTAN 50 MG TAB PO SCH (08:59)
[2020-10-15] MEDS: PANTOPRAZOLE 40 MG TABLET PO SCH (08:59)
[2020-10-15] MEDS: ASCORBIC ACID 500 MG TAB PO SCH (08:59)
[2020-10-15] MEDS: PATIENT'S OWN (Rosuvastatin 10 MG Tablet) PO SCH (09:27)
--- NOTE | 2020-10-15 11:10 | P.GSHP ---
History of Present Illness H&P Date: 10/15/20 CHIEF COMPLAINT: Abdominal pain HISTORY OF PRESENT ILLNESS: This is a 85-year-old female with a known history of diverticulosis, diabetes, COPD, cholecystectomy, hemorrhoidectomy and umbilical hernia repair. Patient presents to the emergency room with complaints of left lower quadrant abdominal pain and rectal pain for the last 2 weeks. She reports the pain is intermittent. She denies any nausea or vomiting. Does admit to low-grade fever and having chills. She has no prior history of diverticulitis. She reports it's been about 3 days since her last bowel movement. Last colonoscopy was about 9 years ago and she reports it to be normal. She had a computed tomography scan of the abdomen and pelvis showing evidence of diverticulitis. No evident abscess. Patient has been started on Levaquin and Flagyl for diverticulitis. Patient denies any blood in her stools or any rectal bleeding. Patient does report improvement in her abdominal pain since admission. PAST MEDICAL HISTORY: See list. PAST SURGICAL HISTORY: See list. MEDICATIONS: See list. ALLERGIES: See list. SOCIAL HISTORY: No illicit drug use. REVIEW OF SYSTEMS: CONSTITUTIONAL: Denies fever or chills. HEENT: Denies blurred vision, vision changes, or eye pain. Denies hemoptysis CARDIOVASCULAR: Denies chest pain or pressure. RESPIRATORY: No shortness of breath. GASTROINTESTINAL: See HPI for pertinent findings HEMATOLOGIC: Denies bleeding disorders. GENITOURINARY: Denies any blood in urine or increased urinary frequency. SKIN: Denies pruitis. Denies rash. PHYSICAL EXAM: VITAL SIGNS: Reviewed GENERAL: Well-developed in no acute distress. HEENT: No sclera icterus. Extraocular movements grossly intact. Moist buccal mucosa. Head is atraumatic, normocephalic. No nasal drainage. ABDOMEN: Soft. Nondistended. Left lower quadrant tenderness with palpation. NEUROLOGIC: Alert and oriented. Cranial nerves II through XII grossly intact. LABORATORY DATA: WBC 7.4 hemoglobin 12.0 Sodium 135 creatinine 1.0 for lactic 1.3 LFTs normal lipase normal UA negative IMAGING: computed tomography scan of the abdomen and pelvis showing evidence of diverticulitis. No evident abscess. ASSESSMENT: 1. Acute diverticulitis within the sigmoid colon PLAN: -Continue medical treatment -Continue Levaquin and Flagyl -Continue IV fluids -Add Colace to help with constipation -Consult GI and medicine service -GI prophylaxis Protonix and DVT prophylaxis subcu heparin Physician Fur Operator note has been reviewed by physician. Signing provider agrees with the documented findings, assessment, and plan of care. Past Medical History Past Medical History: Asthma, COPD, Diabetes Mellitus, Hyperlipidemia, Hypertension, Osteoarthritis (OA), Renal Disease, Thyroid Disorder Additional Past Medical History / Comment(s): CHRONIC BRONCITIS W/ COUGH. LOWER BACK PAIN. PERIPHERAL EDEMA BLE, FEET. Experiencing burning pain in pelvic area, vagina, rectum. Varicose Veins. IBS. RECENT IMPAIRED RENAL FUNCTION BEING MONITORED. History of Any Multi-Drug Resistant Organisms: None Reported Past Surgical History: Adenoidectomy, Cholecystectomy, Hernia Repair, Joint Replacement, Tonsillectomy Additional Past Surgical History / Comment(s): RT KNEE REPLACED. UMB HERNIA. 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 D&C 2014. HEMORRHOID, FISSURE SURG. Past Anesthesia/Blood Transfusion Reactions: No Reported Reaction Additional Past Anesthesia/Blood Transfusion Reaction / Comment(s): unknown on blood transfusions Past Psychological History: Anxiety Smoking Status: Never smoker Past Alcohol Use History: None Reported Additional Past Alcohol Use History / Comment(s): AT 16 SMOKED 6 MO. Past Drug Use History: None Reported Additional Drug Use History / Comment(s): pt states she used CBD oil for extreme pain...states does not resort to it every day - Past Family History Father Family Medical History: Cancer, CVA/TIA Additional Family Medical History / Comment(s): BLADDER Mother Family Medical History: Asthma, Pneumonia Additional Family Medical History / Comment(s): MOM WHEN PT WAS 5 YRS OLD- SHE THINKS OF LUNG PROBLEMS & ASTHMA Medications and Allergies Home Medications Medication Instructions Recorded Confirmed Type Rosuvastatin [Crestor] 10 mg PO DAILY 09/17/14 10/14/20 History Losartan [Cozaar] 50 mg PO DAILY 11/21/15 10/14/20 History Levothyroxine Sodium [Synthroid] 100 mcg PO DAILY 11/22/15 10/14/20 History Furosemide [Lasix] 40 mg PO DAILY@1300 09/17/20 10/14/20 History Mometasone/Formoterol [Dulera 100 2 puff PO RT-BID 09/17/20 10/14/20 History Mcg-5 Mcg Inhaler] Nystatin 100,000Unit/gm Cream 1 applic TOPICAL BID PRN 09/17/20 10/14/20 History [Mycostatin Cream] Pioglitazone [Actos] 15 mg PO DAILY 09/17/20 10/14/20 History glipiZIDE [Glucotrol] 5 mg PO DAILY 09/17/20 10/14/20 History Acetaminophen Tab [Tylenol] 650 mg PO Q6HR PRN #30 tab 09/21/20 10/14/20 Rx Albuterol Inhaler [Ventolin Hfa 2 puff INHALATION RT-Q4H PRN #1 09/21/20 10/14/20 Rx Inhaler] puff Ascorbic Acid [Vitamin C] 500 mg PO DAILY #30 tab 09/21/20 10/14/20 Rx Zinc Sulfate [Orazinc] 220 mg PO DAILY #30 cap 09/21/20 10/14/20 Rx guaiFENesin-DM 100-10MG/5ML 10 ml PO Q8H PRN #100 ml 09/21/20 10/14/20 Rx [Robitussin DM] Pantoprazole [Protonix] 40 mg PO DAILY 10/14/20 10/14/20 History Allergies Allergy/AdvReac Type Severity Reaction Status Date / Time Cqbwqki-Dmz-Bay Reductase AdvReac Mild GENERALIZED Verified 10/14/20 16:45 Inhibitor MUSCLE ACHING-TOLERATES CRESTOR QOD cephalexin monohydrate AdvReac YEAST Verified 10/14/20 16:45 [From Keflex] INFECTION gabapentin [From Neurontin] AdvReac Unknown Verified 10/14/20 16:45 pregabalin [From Lyrica] AdvReac "FELT Verified 10/14/20 16:45 FUNNY" Surgical - Exam Vital Signs Temp Pulse Resp BP Pulse Ox 99.2 F 77 18 139/63 98 10/14/20 13:04 10/14/20 13:04 10/14/20 13:04 10/14/20 13:04 10/14/20 13:04 Results - Labs 10/15/20 07:50 10/15/20 07:50 Abnormal Lab Results - Last 24 Hours (Table) 10/14/20 10/14/20 10/15/20 Range/Units 13:42 13:42 07:50 APTT 33.7 H (22.0-30.0) sec Sodium 135 L 135 L (137-145) mmol/L Carbon Dioxide 31 H (22-30) mmol/L Creatinine 1.05 H (0.52-1.04) mg/dL Glucose 150 H (74-99) mg/dL Calcium 8.3 L (8.4-10.2) mg/dL Albumin 3.4 L (3.5-5.0) g/dL Diabetes panel 10/14/20 10/15/20 Range/Units 13:42 07:50 Sodium 135 L 135 L (137-145) mmol/L Potassium 4.1 4.2 (3.5-5.1) mmol/L Chloride 100 101 (98-107) mmol/L Carbon Dioxide 31 H 29 (22-30) mmol/L BUN 16 12 (7-17) mg/dL Creatinine 1.05 H 1.04 (0.52-1.04) mg/dL Glucose 92 150 H (74-99) mg/dL Calcium 8.6 8.3 L (8.4-10.2) mg/dL AST 29 (14-36) U/L ALT 26 (4-34) U/L Alkaline Phosphatase 67 (38-126) U/L Total Protein 6.3 (6.3-8.2) g/dL Albumin 3.4 L (3.5-5.0) g/dL Calcium panel 10/14/20 10/15/20 Range/Units 13:42 07:50 Calcium 8.6 8.3 L (8.4-10.2) mg/dL Albumin 3.4 L (3.5-5.0) g/dL Pituitary panel 10/14/20 10/15/20 Range/Units 13:42 07:50 Sodium 135 L 135 L (137-145) mmol/L Potassium 4.1 4.2 (3.5-5.1) mmol/L Chloride 100 101 (98-107) mmol/L Carbon Dioxide 31 H 29 (22-30) mmol/L BUN 16 12 (7-17) mg/dL Creatinine 1.05 H 1.04 (0.52-1.04) mg/dL Glucose 92 150 H (74-99) mg/dL Calcium 8.6 8.3 L (8.4-10.2) mg/dL Adrenal panel 10/14/20 10/15/20 Range/Units 13:42 07:50 Sodium 135 L 135 L (137-145) mmol/L Potassium 4.1 4.2 (3.5-5.1) mmol/L Chloride 100 101 (98-107) mmol/L Carbon Dioxide 31 H 29 (22-30) mmol/L BUN 16 12 (7-17) mg/dL Creatinine 1.05 H 1.04 (0.52-1.04) mg/dL Glucose 92 150 H (74-99) mg/dL Calcium 8.6 8.3 L (8.4-10.2) mg/dL Total Bilirubin 0.8 (0.2-1.3) mg/dL AST 29 (14-36) U/L ALT 26 (4-34) U/L Alkaline Phosphatase 67 (38-126) U/L Total Protein 6.3 (6.3-8.2) g/dL Albumin 3.4 L (3.5-5.0) g/dL
[2020-10-15] MEDS: DOCUSATE 100 MG CAP PO SCH ×2 (11:21→20:22)
[2020-10-15] MEDS: LEVOFLOXACIN 500MG-D5W PMX 500 MG in DEXTROSE/WATER 1 100ML.BAG IVPB SCH (11:23)
[2020-10-15 12:29] LABS: Glucose,Whole Blood 122 mg/dL (75-99)
[2020-10-15] MEDS: FUROSEMIDE 40 MG TAB PO SCH (12:52)
[2020-10-15 16:23] LABS: Glucose,Whole Blood 100 mg/dL (75-99)
[2020-10-15 19:56] LABS: Glucose,Whole Blood 139 mg/dL (75-99)
[2020-10-15] MEDS: HEPARIN SODIUM,PORCINE 5,000 UNIT/ML 1 ML VIAL SQ SCH (20:22)
--- NOTE | 2020-10-15 20:46 | CONS ---
CONSULTATION DATE OF DICTATION: 10/15/2020 REASON FOR CONSULTATION: Acute sigmoid diverticulitis. HISTORY OF PRESENT ILLNESS: The patient is an 85-year-old pleasant white female with history of diabetes mellitus, hypertension and hypothyroidism, admitted to the hospital with acute onset of severe left lower quadrant abdominal pain associated with severe constipation for the last 2 days' duration. The pain continued to progressively get worse. She had a low-grade fever last night, came into the emergency room and subsequently had a CT of the abdomen and pelvis done that showed sigmoid diverticulitis. She was subsequently admitted to the hospital. She was started on Levaquin and Flagyl and she is feeling much better today. She still has left lower quadrant abdominal pain. She still has had no bowel movement so far. No further episodes of fever, chills or night sweats. PAST MEDICAL HISTORY: Her past medical history is significant for hypertension, hyperlipidemia, hypothyroidism, COPD, diabetes mellitus, gastroesophageal reflux disease. MEDICATIONS: Medications at home include Crestor, Cozaar, Synthroid, Lasix, Dulera, Actos, Glucotrol, Protonix, Nystatin cream. ALLERGIES: STATINS, KEFLEX, NEURONTIN, AND LYRICA. PAST SURGICAL HISTORY: Adenoidectomy, cholecystectomy, hernia repair, tonsillectomy, left lower lobectomy, hemorrhoid surgery. SOCIAL HISTORY: No smoking. No alcohol use. FAMILY HISTORY: Father had TIA and CVA. Mother had asthma and pneumonia. REVIEW OF SYSTEMS: CARDIOPULMONARY: She denies any chest pain or shortness of breath. GENITOURINARY: No dysuria or hematuria. MUSCULOSKELETAL: Unremarkable. SKIN: Unremarkable. ENDOCRINE: Unremarkable. PSYCHIATRIC: Unremarkable. NEUROLOGY: Unremarkable. ENT/VISION: Unremarkable. CONSTITUTIONAL: No recent weight loss. No fever, chills, night sweats. PHYSICAL EXAMINATION: She appears comfortable. No apparent distress. VITAL SIGNS: Stable. Blood pressure is 168/75, pulse rate 79, temperature 98. HEENT examination unremarkable. Conjunctivae pink. Sclerae anicteric. Oral cavity no lesions. NECK: No JVD or lymph node enlargement. CHEST: Clear to auscultation. HEART: Regular rate and rhythm. ABDOMEN: Soft. There was tenderness in the left lower quadrant area, but no rebound of rigidity. Rest of the abdomen was benign. EXTREMITIES: No pedal edema. SKIN: No rashes. NEUROLOGIC: Alert and oriented x3. No focal deficits. LABS/IMAGING: Labs at admission yesterday showed WBC 8.1, hemoglobin 12.9, platelets 320. BUN 16, creatinine 1.05. Rest of the labs are within normal limits. Today WBC is 7.4, hemoglobin 12, platelets 328. CT of the abdomen and pelvis done in the ER yesterday showed extensive diverticular changes in the sigmoid colon with pericolonic inflammatory changes consistent with acute sigmoid diverticulitis. IMPRESSION: This is a lady who presented to the hospital with acute onset of left lower quadrant abdominal pain for the last 3 days' duration with change in bowel habits with worsening constipation and some rectal pain and low-grade fever, and CT scan showing sigmoid diverticulitis, presently on empiric antibiotics with Levaquin and Flagyl and she is doing much better. Last colonoscopy by Dr. Allison was 9 years ago and showed diverticulosis. RECOMMENDATIONS: 1. Continue with clear liquid diet. 2. Continue with antibiotics. 3. Okay for stool softeners. 4. Monitor labs closely. 5. Will follow with you closely. Thank you for this consultation. MMODL / IJN: [id number] /
[2020-10-16] MEDS: metroNIDAZOLE-NS PMX 500 MG in SALINE 1 100ML.BAG IVPB SCH ×3 (00:25→16:05)
[2020-10-16] MEDS: ACETAMINOPHEN TAB 325 MG TAB PO PRN ×3 (00:32→12:08)
[2020-10-16] MEDS: LEVOTHYROXINE 100 MCG TAB PO SCH (05:47)
[2020-10-16 06:24] LABS: Glucose,Whole Blood 150 mg/dL (75-99)
[2020-10-16] MEDS: SYMBICORT 80-4.5 MCG INHALER INHALATION SCH ×2 (07:18→20:26)
[2020-10-16 08:04] LABS: Basophils % (A) 1 %; Eosinophils # (A) 0.3 k/uL (0-0.7); Eosinophils % (A) 5 %; HGB 11.2 gm/dL (11.4-16.0); Lymphocytes # (A) 1.1 k/uL (1.0-4.8); Lymphocytes % (A) 18 %; MCH 29.6 pg (25.0-35.0); MCV 89.7 fL (80.0-100.0); Mean Platelet Volume 7.1; Monocytes # (A) 0.4 k/uL (0-1.0); Monocytes % (A) 7 %; Neutrophils # (A) 3.9 k/uL (1.3-7.7); Neutrophils % (A) 65 %; Platelet Count 287 k/uL (150-450); RBC 3.79 m/uL (3.80-5.40); RDW 13.8 % (11.5-15.5); WBC 5.9 k/uL (3.8-10.6)
[2020-10-16] MEDS: PANTOPRAZOLE 40 MG TABLET PO SCH (09:38)
[2020-10-16] MEDS: DOCUSATE 100 MG CAP PO SCH ×3 (09:38→21:37)
[2020-10-16] MEDS: LOSARTAN 50 MG TAB PO SCH (09:38)
[2020-10-16] MEDS: HEPARIN SODIUM,PORCINE 5,000 UNIT/ML 1 ML VIAL SQ SCH ×2 (09:38→21:37)
[2020-10-16] MEDS: ASCORBIC ACID 500 MG TAB PO SCH (09:38)
[2020-10-16] MEDS: ZINC SULFATE 220 MG CAP PO SCH (09:38)
[2020-10-16] MEDS: PATIENT'S OWN (Rosuvastatin 10 MG Tablet) PO SCH (09:41)
[2020-10-16] MEDS: SODIUM CHLORIDE 0.9% 1,000 ML IV SCH ×2 (09:46→21:38)
--- NOTE | 2020-10-16 10:53 | P.PN ---
Subjective Progress Note Date: 10/16/20 Principal diagnosis: Acute sigmoid diverticulitis The patient is a pleasant 85-year-old white female who came into the hospital with complaints of severe left lower quadrant abdominal pain. The patient stated her last colonoscopy was approximately [address] Ward, which she states she had a diagnosis of diverticulosis however never been diagnosed with diverticulitis. She states the pain is improved today. She still has not had a bowel movement going on for days. She states she feels bloated due to not having a bowel movement. She denies any nausea, vomiting, or rectal bleeding. She is tolerating a clear liquid diet. She remains on IV Flagyl and Levaquin. She's been afebrile. Objective - Vital Signs Vital signs: Vital Signs Temp 97.8 F 10/16/20 08:32 Pulse 78 10/16/20 08:32 Resp 20 10/16/20 08:32 BP 139/69 10/16/20 08:32 Pulse Ox 95 10/16/20 08:32 Intake & Output 10/15/20 10/16/20 10/16/20 18:59 06:59 18:59 Intake Total 1175 200 Balance 1175 200 Intake: Intake, IV Titration 675 Amount Levofloxacin 500Mg-D5w 100 Pmx 500 mg In Dextrose/ Water 1 100ml.bag @ 100 mls/hr IVPB Q24H [facility] Rx#: [id number] Sodium Chloride 0.9% 1, 475 000 ml @ 75 mls/hr IV . [id number] [facility] Rx#:[id number] metroNIDAZOLE-NS PMX 500 100 mg In Saline 1 100ml.bag @ 100 mls/hr IVPB ONCE [facility] Rx#:[id number] Oral 500 200 Other: Voiding Method Toilet Toilet # Voids 2 2 # Bowel Movements 1 - Exam General appearance: The patient is alert, oriented, in no acute distress. HET: Head is normocephalic and atraumatic. Conjunctiva pink. Sclera anicteric. Neck: Supple without lymphadenopathy. Abdomen: Soft, mild tenderness to the left lower quadrant, nondistended with bowel sounds. No guarding or rigidity. Extremities: Normal skin color and turgor. No pedal edema Neurological: No focal deficits. Alert and oriented 3. - Labs CBC & Chem 7: 10/16/20 07:47 10/15/20 07:50 Labs: Abnormal Lab Results - Last 24 Hours (Table) 10/15/20 10/15/20 10/15/20 Range/Units 12:27 16:21 19:45 RBC (3.80-5.40) m/uL Hgb (11.4-16.0) gm/dL POC Glucose (mg/dL) 122 H 100 H 139 H (75-99) mg/dL 10/16/20 10/16/20 Range/Units 06:23 07:47 RBC 3.79 L (3.80-5.40) m/uL Hgb 11.2 L (11.4-16.0) gm/dL POC Glucose (mg/dL) 150 H (75-99) mg/dL Assessment and Plan (1) Diverticulitis Narrative/Plan: This is a patient who presented to the hospital with acute onset of left lower quadrant abdominal pain for the last 3 days duration with change in bowel habits with worsening constipation some rectal pain and low-grade fever. CT of the abdomen showed sigmoid diverticulitis, presently on empiric antibiotics with Levaquin and Flagyl. Symptoms are improving, she has been afebrile. Last colonoscopy by Dr. Ward approximately 9 years ago that showed diverticulosis. Encouraged patient to increase ambulation. Thus with patient constipation likely related to inflammation from diverticulitis, is inflammation improves patient will likely have bowel movement. Current Visit: Yes Status: Acute Code(s): K57.92 - DVTRCLI OF INTEST, PART U NSP, W/O PERF OR ABSCESS W/O BLEED SNOMED Code(s): 210554053 (2) Abdominal pain Current Visit: Yes Status: Acute Code(s): R10.9 - UNSPECIFIED ABDOMINAL PAIN SNOMED Code(s): 95838449 Plan: 1. Supportive care 2. Clear liquid diet 3. Continue with antibiotics 4. Okay for stool softeners 5. Monitor daily labs 6. We will follow with you closely Dr. Logan Woodruff I agree with the dictator's note, documented as a scribe by Luh Robbins.
--- NOTE | 2020-10-16 11:22 | P.PN ---
Subjective Progress Note Date: 10/16/20 CHIEF COMPLAINT: Abdominal pain HISTORY OF PRESENT ILLNESS: Patient is being followed for an acute divert iculitis. She reports improvement in her left lower quadrant abdominal pain. She still complaining of rectal pain. She is passing gas. No bowel movement. She's currently on a clear liquid diet. Denies any nausea or vomiting. Afebrile. WBC 5.9 PHYSICAL EXAM: VITAL SIGNS: Reviewed. GENERAL: Well-developed in no acute distress. HEENT: No sclera icterus. Extraocular movements grossly intact. Moist buccal mucosa. Head is atraumatic, normocephalic. ABDOMEN: Soft. Nondistended. Nontender. NEUROLOGIC: Alert and oriented. Cranial nerves II through XII grossly intact. ASSESSMENT: 1. Acute diverticulitis within the sigmoid colon 2. Constipation PLAN: -Advance diet to full liquids -Continue medical treatment -No plans for surgical intervention at this time -Continue Levaquin and Flagyl -Continue IV fluids -give mag citrate 1 for constipation -GI prophylaxis Protonix and DVT prophylaxis subcu heparin Physician Station Mechanic Apprentice note has been reviewed by physician. Signing provider agrees with the documented findings, assessment, and plan of care. Objective - Vital Signs Vital signs: Vital Signs Temp 97.8 F 10/16/20 08:32 Pulse 78 10/16/20 08:32 Resp 20 10/16/20 08:32 BP 139/69 10/16/20 08:32 Pulse Ox 95 10/16/20 08:32 Intake & Output 10/15/20 10/16/20 10/16/20 18:59 06:59 18:59 Intake Total 1175 200 Output Total 100 Balance 1175 100 Intake: Intake, IV Titration 675 Amount Levofloxacin 500Mg-D5w 100 Pmx 500 mg In Dextrose/ Water 1 100ml.bag @ 100 mls/hr IVPB Q24H [facility] Rx#: [id number] Sodium Chloride 0.9% 1, 475 000 ml @ 75 mls/hr IV . [id number] [facility] Rx#:[id number] metroNIDAZOLE-NS PMX 500 100 mg In Saline 1 100ml.bag @ 100 mls/hr IVPB ONCE [facility] Rx#:[id number] Oral 500 200 Output: Urine 100 Other: Voiding Method Toilet Toilet # Voids 2 2 2 # Bowel Movements 1 - Labs CBC & Chem 7: 10/16/20 07:47 10/15/20 07:50 Labs: Abnormal Lab Results - Last 24 Hours (Table) 10/15/20 10/15/20 10/15/20 Range/Units 12:27 16:21 19:45 RBC (3.80-5.40) m/uL Hgb (11.4-16.0) gm/dL POC Glucose (mg/dL) 122 H 100 H 139 H (75-99) mg/dL 10/16/20 10/16/20 Range/Units 06:23 07:47 RBC 3.79 L (3.80-5.40) m/uL Hgb 11.2 L (11.4-16.0) gm/dL POC Glucose (mg/dL) 150 H (75-99) mg/dL
--- NOTE | 2020-10-16 11:55 | P.HPIM ---
History of Present Illness H&P Date: 10/16/20 Chief Complaint: Left lower quadrant pain for last 2 weeks This is a pleasant 85-year-old female with history of diverticulosis diabetes mellitus COPD dyslipidemia hypertension hypertensive cardiovascular disease, she is been having lower abdominal pain for last 2 week came into the hospital due to intermittent pain and persistent however she denies any fever and denies any diarrhea, she has ongoing constipation as well, she has been started on IV antibiotics and computed tomography scan of the abdominal and pelvis revealed diverticulitis without any abscess formation, Review of Systems All systems: negative Past Medical History Past Medical History: Asthma, COPD, Diabetes Mellitus, Hyperlipidemia, Hypertension, Osteoarthritis (OA), Renal Disease, Thyroid Disorder Additional Past Medical History / Comment(s): CHRONIC BRONCITIS W/ COUGH. LOWER BACK PAIN. PERIPHERAL EDEMA BLE, FEET. Experiencing burning pain in pelvic area, vagina, rectum. Varicose Veins. IBS. RECENT IMPAIRED RENAL FUNCTION BEING MONITORED. History of Any Multi-Drug Resistant Organisms: None Reported Past Surgical History: Adenoidectomy, Cholecystectomy, Hernia Repair, Joint Replacement, Tonsillectomy Additional Past Surgical History / Comment(s): RT KNEE REPLACED. UMB HERNIA. 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 D&C 2014. HEMORRHOID, FISSURE SURG. Past Anesthesia/Blood Transfusion Reactions: No Reported Reaction Additional Past Anesthesia/Blood Transfusion Reaction / Comment(s): unknown on blood transfusions Past Psychological History: Anxiety Smoking Status: Never smoker Past Alcohol Use History: None Reported Additional Past Alcohol Use History / Comment(s): AT 16 SMOKED 6 MO. Past Drug Use History: None Reported Additional Drug Use History / Comment(s): pt states she used CBD oil for extreme pain...states does not resort to it every day - Past Family History Father Family Medical History: Cancer, CVA/TIA Additional Family Medical History / Comment(s): BLADDER Mother Family Medical History: Asthma, Pneumonia Additional Family Medical History / Comment(s): MOM WHEN PT WAS 5 YRS OLD- SHE THINKS OF LUNG PROBLEMS & ASTHMA Medications and Allergies Home Medications Medication Instructions Recorded Confirmed Type Rosuvastatin [Crestor] 10 mg PO DAILY 09/17/14 10/14/20 History Losartan [Cozaar] 50 mg PO DAILY 11/21/15 10/14/20 History Levothyroxine Sodium [Synthroid] 100 mcg PO DAILY 11/22/15 10/14/20 History Furosemide [Lasix] 40 mg PO DAILY@1300 09/17/20 10/14/20 History Mometasone/Formoterol [Dulera 100 2 puff PO RT-BID 09/17/20 10/14/20 History Mcg-5 Mcg Inhaler] Nystatin 100,000Unit/gm Cream 1 applic TOPICAL BID PRN 09/17/20 10/14/20 History [Mycostatin Cream] Pioglitazone [Actos] 15 mg PO DAILY 09/17/20 10/14/20 History glipiZIDE [Glucotrol] 5 mg PO DAILY 09/17/20 10/14/20 History Acetaminophen Tab [Tylenol] 650 mg PO Q6HR PRN #30 tab 09/21/20 10/14/20 Rx Albuterol Inhaler [Ventolin Hfa 2 puff INHALATION RT-Q4H PRN #1 09/21/20 0 Rx Inhaler] puff Ascorbic Acid [Vitamin C] 500 mg PO DAILY #30 tab 09/21/20 10/14/20 Rx Zinc Sulfate [Orazinc] 220 mg PO DAILY #30 cap 09/21/20 10/14/20 Rx guaiFENesin-DM 100-10MG/5ML 10 ml PO Q8H PRN #100 ml 09/21/20 10/14/20 Rx [Robitussin DM] Pantoprazole [Protonix] 40 mg PO DAILY 10/14/20 10/14/20 History Allergies Allergy/AdvReac Type Severity Reaction Status Date / Time Xwczimk-Ont-Qov Reductase AdvReac Mild GENERALIZED Verified 10/14/20 16:45 Inhibitor MUSCLE ACHING-TOLERATES CRESTOR QOD cephalexin monohydrate AdvReac YEAST Verified 10/14/20 16:45 [From Keflex] INFECTION gabapentin [From Neurontin] AdvReac Unknown Verified 10/14/20 16:45 pregabalin [From Lyrica] AdvReac "FELT Verified 10/14/20 16:45 FUNNY" Physical Exam Vitals: Vital Signs Temp Pulse Resp BP Pulse Ox 10/16/20 09:00 20 10/16/20 08:32 97.8 F 78 20 139/69 95 10/16/20 03:00 97 F L 92 20 126/70 96 10/15/20 21:00 98.8 F 88 18 115/61 97 10/15/20 15:00 98 F 79 16 168/75 100 Intake and Output 10/15/20 10/16/20 10/16/20 22:59 06:59 14:59 Intake Total 900 200 Output Total 100 Balance 900 100 Intake: Intake, IV Titration 600 Amount Levofloxacin 500Mg-D5w 100 Pmx 500 mg In Dextrose/ Water 1 100ml.bag @ 100 mls/hr IVPB Q24H [facility] Rx#: [id number] Sodium Chloride 0.9% 1, 400 000 ml @ 75 mls/hr IV . [id number] [facility] Rx#:[id number] metroNIDAZOLE-NS PMX 500 100 mg In Saline 1 100ml.bag @ 100 mls/hr IVPB ONCE [facility] Rx#:[id number] Oral 300 200 Output: Urine 100 Other: Voiding Method Toilet Toilet Toilet # Voids 2 2 2 # Bowel Movements 1 - Constitutional General appearance: average body habitus, disheveled, morbidly obese - EENT Eyes: PERRLA Ears: bilateral: normal - Neck Carotids: bilateral: upstroke normal - Respiratory Respiratory: bilateral: CTA - Cardiovascular Rhythm: regular Heart sounds: normal: S1, S2 - Gastrointestinal General gastrointestinal: distended Localized gastrointestinal: tender: diffuse - Integumentary Integumentary: normal turgor - Neurologic Neurologic: CNII-XII intact - Musculoskeletal Musculoskeletal: gait normal, generalized weakness, strength equal bilaterally - Psychiatric Psychiatric: A&O x's 3, appropriate affect, intact judgment & insight Results CBC & Chem 7: 10/16/20 07:47 10/15/20 07:50 Labs: Abnormal Lab Results - Last 24 Hours (Table) 10/15/20 10/15/20 10/15/20 Range/Units 12:27 16:21 19:45 RBC (3.80-5.40) m/uL Hgb (11.4-16.0) gm/dL POC Glucose (mg/dL) 122 H 100 H 139 H (75-99) mg/dL 10/16/20 10/16/20 Range/Units 06:23 07:47 RBC 3.79 L (3.80-5.40) m/uL Hgb 11.2 L (11.4-16.0) gm/dL POC Glucose (mg/dL) 150 H (75-99) mg/dL CT scan - abdomen: report reviewed Thrombosis Risk Factor Assmnt - Choose All That Apply Each Factor Represents 1 point: Obesity (BMI >25) Each Risk Factor Represents 3 Points: Age 75 years or older Thrombosis Risk Factor Assessment Total Risk Factor Score: 4 Thrombosis Risk Factor Assessment Level: Moderate Risk Assessment and Plan Assessment: Acute diverticulitis Hypertension hypertensive cardiovascular disease Dyslipidemia Morbid obesity Type 2 diabetes mellitus Plan: Gentle rehydration Broad-spectrum antibiotics Resume home medications Sliding scale insulin Bronchodilator as needed Other recommendations pending plan of care as per clinical response of the patient Time with Patient: Greater than 30
[2020-10-16] MEDS: LEVOFLOXACIN 500MG-D5W PMX 500 MG in DEXTROSE/WATER 1 100ML.BAG IVPB SCH (12:02)
[2020-10-16] MEDS ORDERED: MAGNESIUM CITRATE 296 ML BOTTLE PO ONE (12:45)
[2020-10-16] MEDS: FUROSEMIDE 40 MG TAB PO SCH (13:07)
[2020-10-16 16:35] LABS: Glucose,Whole Blood 131 mg/dL (75-99)
[2020-10-16] MEDS: traMADol 50 MG TAB PO PRN (17:09)
[2020-10-17] MEDS: metroNIDAZOLE-NS PMX 500 MG in SALINE 1 100ML.BAG IVPB SCH ×4 (01:40→23:56)
[2020-10-17] MEDS: traMADol 50 MG TAB PO PRN ×2 (01:59→20:07)
[2020-10-17] MEDS: LEVOTHYROXINE 100 MCG TAB PO SCH (06:48)
[2020-10-17] MEDS: SYMBICORT 80-4.5 MCG INHALER INHALATION SCH ×2 (07:29→22:07)
[2020-10-17] MEDS: ALBUTEROL HFA INHALER INHALATION PRN ×2 (07:30→22:07)
[2020-10-17] MEDS: PANTOPRAZOLE 40 MG TABLET PO SCH (09:28)
[2020-10-17] MEDS: PATIENT'S OWN (Rosuvastatin 10 MG Tablet) PO SCH (09:28)
[2020-10-17] MEDS: HEPARIN SODIUM,PORCINE 5,000 UNIT/ML 1 ML VIAL SQ SCH ×2 (09:28→20:03)
[2020-10-17] MEDS: ZINC SULFATE 220 MG CAP PO SCH (09:28)
[2020-10-17] MEDS: LOSARTAN 50 MG TAB PO SCH (09:28)
[2020-10-17] MEDS: ASCORBIC ACID 500 MG TAB PO SCH (09:28)
[2020-10-17] MEDS: DOCUSATE 100 MG CAP PO SCH ×2 (09:29→20:03)
--- NOTE | 2020-10-17 11:45 | P.PN ---
Subjective Progress Note Date: 10/17/20 Principal diagnosis: Acute diverticulitis Hypertension hypertensive cardiovascular disease Dyslipidemia Morbid obesity Type 2 diabetes mellitus 10/17/2020, abdominal pain is improved, denies any chest pain, patient is being given clear liquid diet gently rehydrated on antibiotics, continue supportive care from medical standpoint can be discharged on oral antibiotics like Cipro and Flagyl This is a pleasant 85-year-old female with history of diverticulosis diabetes mellitus COPD dyslipidemia hypertension hypertensive cardiovascular disease, she is been having lower abdominal pain for last 2 week came into the hospital due to intermittent pain and persistent however she denies any fever and denies any diarrhea, she has ongoing constipation as well, she has been started on IV antibiotics and computed tomography scan of the abdominal and pelvis revealed diverticulitis without any abscess formation, Objective - Vital Signs Vital signs: Vital Signs Temp 98.2 F 10/17/20 08:04 Pulse 88 10/17/20 08:04 Resp 20 10/17/20 09:00 BP 116/68 10/17/20 08:04 Pulse Ox 96 10/17/20 08:04 Intake & Output 10/16/20 10/17/20 10/17/20 18:59 06:59 18:59 Intake Total 1700 350 Output Total 100 100 1 Balance 1600 -100 349 Intake: IV 900 Levofloxacin 500Mg-D5w 100 Pmx 500 mg In Dextrose/ Water 1 100ml.bag @ 100 mls/hr IVPB Q24H [facility] Rx#: [id number] Sodium Chloride 0.9% 1, 600 000 ml @ 20 mls/hr IV . Q24H [facility] Rx#:[id number] metroNIDAZOLE-NS PMX 500 200 mg In Saline 1 100ml.bag @ 100 mls/hr IVPB Q8HR [facility] Rx#:[id number] Oral 800 350 Output: Urine 100 100 Urine/Stool Mix 1 Other: Voiding Method Toilet Toilet Toilet # Voids 1 1 1 # Bowel Movements 1 1 1 - Exam - Constitutional General appearance: average body habitus, disheveled, morbidly obese - EENT Eyes: PERRLA Ears: bilateral: normal - Neck Carotids: bilateral: upstroke normal - Respiratory Respiratory: bilateral: CTA - Cardiovascular Rhythm: regular Heart sounds: normal: S1, S2 - Gastrointestinal General gastrointestinal: distended Localized gastrointestinal: tender: diffuse - Integumentary Integumentary: normal turgor - Neurologic Neurologic: CNII-XII intact - Musculoskeletal Musculoskeletal: gait normal, generalized weakness, strength equal bilaterally - Psychiatric Psychiatric: A&O x's 3, appropriate affect, intact judgment & insight - Labs CBC & Chem 7: 10/16/20 07:47 10/15/20 07:50 Labs: Abnormal Lab Results - Last 24 Hours (Table) 10/16/20 Range/Units 16:32 POC Glucose (mg/dL) 131 H (75-99) mg/dL Assessment and Plan Assessment: Acute diverticulitis Hypertension hypertensive cardiovascular disease Dyslipidemia Morbid obesity Type 2 diabetes mellitus Plan: Gentle rehydration Broad-spectrum antibiotics Resume home medications Sliding scale insulin Bronchodilator as needed Other recommendations pending plan of care as per clinical response of the patient Time with Patient: Greater than 30
--- NOTE | 2020-10-17 12:21 | PN ---
PROGRESS NOTE DATE OF DICTATION: October 17, 2020 Patient is an 85-year-old pleasant white female admitted to the hospital with acute sigmoid diverticulitis presently on broad-spectrum antibiotics and she is doing much better today. Yesterday she was complaining of constipation and was given magnesium citrate. After that she had severe cramping abdominal pain with multiple bowel movements. Overall, she is feeling better today. Remains on a clear liquid diet. No fever, no chills. Remains on broad-spectrum antibiotics. PHYSICAL EXAMINATION: Appears comfortable. VITAL SIGNS: Stable. Blood pressure is 136/82, pulse rate 88, temperature 98.2. HEENT: Examination unremarkable. Conjunctivae pink. Sclerae anicteric. Oral cavity, no lesions. NECK: No JVD or lymph node enlargement. CHEST: Was clear to auscultation. HEART: Regular rate and rhythm. ABDOMEN: Soft. Bowel sounds are positive. No organomegaly. EXTREMITIES: No pedal edema. SKIN: No rashes. NEUROLOGIC: Alert and oriented x3. No focal deficits. LABS: WBC 5.9, hemoglobin 11.2, platelets normal. IMPRESSION: 1. Acute sigmoid diverticulitis on Flagyl and Levaquin. Her symptoms are gradually improving. She did have some severe cramping and abdominal pain yesterday, probably related to laxative, but today she is much better. She still remains on a clear liquid diet, tolerating well. 2. History of hypertension. 3. History of hyperlipidemia. 4. History of hypothyroidism. RECOMMENDATIONS: 1. Continue with empiric antibiotics. 2. Advance to a full liquid diet. 3. Monitor labs closely. 4. We will follow with you closely. Thank you for this consultation. MMODL / IJN: [id number] /
--- NOTE | 2020-10-17 12:38 | P.PN ---
Progress Note - Text Progress Note Date: 10/17/20 She's had several small bowel movements. On exam vital signs are stable. Abdomen soft. Mild left lower quadrant tenderness. Resolving diverticulitis. Patiently most likely discharged home the next 24-48 hours
[2020-10-17] MEDS: LEVOFLOXACIN 500MG-D5W PMX 500 MG in DEXTROSE/WATER 1 100ML.BAG IVPB SCH (12:43)
[2020-10-17] MEDS: FUROSEMIDE 40 MG TAB PO SCH (12:46)
[2020-10-18] MEDS: traMADol 50 MG TAB PO PRN ×2 (03:27→10:14)
[2020-10-18] MEDS: LEVOTHYROXINE 100 MCG TAB PO SCH (06:05)
[2020-10-18] MEDS: ALBUTEROL HFA INHALER INHALATION PRN ×2 (08:09→11:31)
[2020-10-18] MEDS: SYMBICORT 80-4.5 MCG INHALER INHALATION SCH ×2 (08:09→21:03)
[2020-10-18] MEDS: PANTOPRAZOLE 40 MG TABLET PO SCH (08:44)
[2020-10-18] MEDS: LOSARTAN 50 MG TAB PO SCH (08:44)
[2020-10-18] MEDS: HEPARIN SODIUM,PORCINE 5,000 UNIT/ML 1 ML VIAL SQ SCH ×2 (08:44→20:00)
[2020-10-18] MEDS: DOCUSATE 100 MG CAP PO SCH ×2 (08:44→20:00)
[2020-10-18] MEDS: ASCORBIC ACID 500 MG TAB PO SCH (08:44)
[2020-10-18] MEDS: ZINC SULFATE 220 MG CAP PO SCH (08:46)
[2020-10-18] MEDS: metroNIDAZOLE-NS PMX 500 MG in SALINE 1 100ML.BAG IVPB SCH ×2 (08:46→15:19)
[2020-10-18] MEDS: PATIENT'S OWN (Rosuvastatin 10 MG Tablet) PO SCH (08:58)
--- NOTE | 2020-10-18 11:34 | PN ---
PROGRESS NOTE DATE OF SERVICE: October 18, 2020. REQUESTING PHYSICIAN: Dr. Smith. The patient is an 85-year-old pleasant white female admitted to the hospital with acute sigmoid diverticulitis. She is still complaining of intermittent abdominal pain, some rectal pain. No fever, chills, or night sweats. On a liquid diet, tolerating well. PHYSICAL EXAMINATION: She appears comfortable. VITAL SIGNS: Stable. Blood pressure 109/69, pulse rate 91, temperature 98.5. HEENT examination unremarkable. Conjunctivae pink. Sclerae anicteric. Oral cavity no lesions. NECK no JVD. No lymph node enlargement. CHEST was clear to auscultation. HEART: Regular rate and rhythm. ABDOMEN: Soft. Bowel sounds are positive. Minimal tenderness in the left lower quadrant area. Rest of the abdomen was benign. EXTREMITIES: No pedal edema. Skin no rashes. NEUROLOGIC: Alert and oriented x3. No focal deficits. LABS: No labs available from today. IMPRESSION: 1. Acute sigmoid diverticulitis, gradually improving. Remains on broad-spectrum antibiotics. 2. History of hypertension. 3. History of gastroesophageal reflux disease. RECOMMENDATIONS: 1. Continue with Levaquin and Flagyl. 2. Advance to a soft diet. 3. Increase ambulation. 4. We will follow with you closely. Thank you for this consultation. MMODL / IJN: [id number] /
[2020-10-18] MEDS: LEVOFLOXACIN 500MG-D5W PMX 500 MG in DEXTROSE/WATER 1 100ML.BAG IVPB SCH (11:46)
[2020-10-18] MEDS: FUROSEMIDE 40 MG TAB PO SCH (13:03)
--- NOTE | 2020-10-18 14:12 | P.PN ---
Subjective Progress Note Date: 10/18/20 CHIEF COMPLAINT: Diverticulitis HISTORY OF PRESENT ILLNESS: The patient is a 85-year-old female admitted for diverticulitis. She reports tenesmus with intermittent burning along the rectum. Her left lower quadrant abdominal pain has moderately improved. She was transferred to another floor secondary to continued abdominal pain. GI team is also following. ROS: No reports of nausea and vomiting. No fevers or chills. No new chest pain. PHYSICAL EXAM: VITAL SIGNS: Reviewed CONSTITUTIONAL: Well developed and in no acute distress. EYES: Conjuctivae without sclera icterus. Extraocular movements grossly intact. HEAD, EARS, NOSE, THROAT: Moist buccal mucosa. Head is atraumatic, normocepha lic. Hears conversational speech. No nasal drainage. NECK: Supple. No thyroidomegaly. RESPIRATORY: Non-labored respirations and equal bilateral excursions. CARDIOVASCULAR: 2+ radial pulses. ABDOMEN: Protuberant. No peritonitis. MUSCULOSKELETAL: No gross deformity of the lower extremities noted. No clubbing. No cyanosis. SKIN: Good skin turgor. Well perfused. NEUROLOGIC: Cranial nerves II through XII grossly intact. No focal or lateralizing signs. PSYCH: Appropriate affect. Alert and oriented to person, place and time. CLINICAL LABS: No new labs ASSESSMENT: 1. Diverticulitis PLAN: 1. Continue hospitalization as abdominal pain persists with rectal pain improved. 2. Continue IV antibiotics. Objective - Vital Signs Vital signs: Vital Signs Temp 98.5 F 10/18/20 13:07 Pulse 89 10/18/20 13:07 Resp 18 10/18/20 13:07 BP 109/64 10/18/20 13:07 Pulse Ox 96 10/18/20 13:07 Intake & Output 10/17/20 10/18/20 10/18/20 18:59 06:59 18:59 Intake Total 1150 200 Output Total 1 Balance 1149 200 Intake: IV 300 Levofloxacin 500Mg-D5w 100 Pmx 500 mg In Dextrose/ Water 1 100ml.bag @ 100 mls/hr IVPB Q24H [facility] Rx#: [id number] metroNIDAZOLE-NS PMX 500 200 mg In Saline 1 100ml.bag @ 100 mls/hr IVPB Q8HR [facility] Rx#:[id number] Oral 850 200 Output: Urine/Stool Mix 1 Other: Voiding Method Toilet Toilet Toilet # Voids 1 2 1 # Bowel Movements 1 - Labs CBC & Chem 7: 10/16/20 07:47 10/15/20 07:50 Assessment and Plan (1) Abdominal pain Current Visit: Yes Status: Acute Code(s): R10.9 - UNSPECIFIED ABDOMINAL PAIN SNOMED Code(s): 49468987 (2) Diverticulitis Current Visit: Yes Status: Acute Code(s): K57.92 - DVTRCLI OF INTEST, PART UNSP, W/O PERF OR ABSCESS W/O BLEED SNOMED Code(s): 271844726
[2020-10-19] MEDS: metroNIDAZOLE-NS PMX 500 MG in SALINE 1 100ML.BAG IVPB SCH ×4 (00:08→23:14)
[2020-10-19] MEDS: LEVOTHYROXINE 100 MCG TAB PO SCH (05:36)
[2020-10-19] MEDS: ASCORBIC ACID 500 MG TAB PO SCH (07:40)
[2020-10-19] MEDS: LOSARTAN 50 MG TAB PO SCH (07:41)
[2020-10-19] MEDS: ZINC SULFATE 220 MG CAP PO SCH (07:41)
[2020-10-19] MEDS: DOCUSATE 100 MG CAP PO SCH (07:41)
[2020-10-19] MEDS: HEPARIN SODIUM,PORCINE 5,000 UNIT/ML 1 ML VIAL SQ SCH ×2 (07:41→19:48)
[2020-10-19] MEDS: PANTOPRAZOLE 40 MG TABLET PO SCH (07:41)
[2020-10-19] MEDS: PATIENT'S OWN (Rosuvastatin 10 MG Tablet) PO SCH (07:42)
[2020-10-19] MEDS: traMADol 50 MG TAB PO PRN ×2 (07:47→15:04)
[2020-10-19] MEDS: SYMBICORT 80-4.5 MCG INHALER INHALATION SCH ×2 (09:08→19:51)
[2020-10-19] MEDS: ALBUTEROL HFA INHALER INHALATION PRN (09:08)
[2020-10-19 10:02] LABS: Basophils # (A) 0.2 k/uL (0-0.2); Basophils % (A) 2 %; Eosinophils # (A) 0.3 k/uL (0-0.7); Eosinophils % (A) 3 %; HGB 12.6 gm/dL (11.4-16.0); Hypochromasia Slight; Lymphocytes # (A) 1.8 k/uL (1.0-4.8); Lymphocytes % (A) 16 %; MCH 28.9 pg (25.0-35.0); MCHC 31.6 g/dL (31.0-37.0); MCV 91.6 fL (80.0-100.0); Mean Platelet Volume 7.5; Monocytes # (A) 0.5 k/uL (0-1.0); Monocytes % (A) 4 %; Neutrophils # (A) 8.3 k/uL (1.3-7.7); Neutrophils % (A) 73 %; Platelet Count 411 k/uL (150-450); RBC 4.36 m/uL (3.80-5.40); RDW 14.1 % (11.5-15.5); WBC 11.4 k/uL (3.8-10.6)
[2020-10-19 10:03] LABS: Basophils # (A) 0.1 k/uL (0-0.2); Basophils % (A) 1 %; Eosinophils # (A) 0.3 k/uL (0-0.7); Eosinophils % (A) 3 %; HCT 39.2 % (34.0-46.0); HGB 12.5 gm/dL (11.4-16.0); Hypochromasia Slight; Lymphocytes # (A) 1.9 k/uL (1.0-4.8); Lymphocytes % (A) 17 %; MCH 29.3 pg (25.0-35.0); MCHC 31.9 g/dL (31.0-37.0); Mean Platelet Volume 7.2; Monocytes # (A) 0.6 k/uL (0-1.0); Monocytes % (A) 5 %; Neutrophils # (A) 8.5 k/uL (1.3-7.7); Neutrophils % (A) 72 %; Platelet Count 420 k/uL (150-450); RBC 4.26 m/uL (3.80-5.40); RDW 14.1 % (11.5-15.5); WBC 11.7 k/uL (3.8-10.6)
[2020-10-19] MEDS: polyethylene glycoL 3350 17 GM POWD.PACK PO SCH (10:11)
[2020-10-19 10:14] LABS: African American GFR (CKD) 49 (>60 ml/min/1.73 sqM); Anion Gap 6 mmol/L; Blood Urea Nitrogen 10 mg/dL (7-17); Calcium 8.6 mg/dL (8.4-10.2); Carbon Dioxide 30 mmol/L (22-30); Chloride 101 mmol/L (98-107); Glucose 194 mg/dL (74-99); Non-African American GFR(CKD) 43 (>60 ml/min/1.73 sqM); Potassium 4.6 mmol/L (3.5-5.1); Sodium 137 mmol/L (137-145)
--- NOTE | 2020-10-19 10:41 | PN ---
PROGRESS NOTE DATE OF SERVICE: 10/19/2020 INTERVAL HISTORY: Patient is an 85-year-old white female admitted to the hospital with acute sigmoid diverticulitis and has been on antibiotics for 5 days. She still continues to complain of abdominal discomfort and abdominal pain. Feels constipated. She takes Colace. She is having abdominal pain. She had no bowel movements for the last 2 days. No fever, chills, night sweats. PHYSICAL EXAMINATION: GENERAL: Appears comfortable. VITAL SIGNS: Stable. Blood pressure 156/64, pulse rate 94, temperature 98. HEENT: Examination unremarkable. Conjunctivae are pink. Sclerae anicteric. Oral cavity no lesions. NECK: No JVD or lymph node enlargement. CHEST: Clear to auscultation. HEART: Regular rate and rhythm. ABDOMEN: Soft. Bowel sounds are positive. There was mild tenderness in the suprapubic and left lower quadrant area. Rest of the abdomen is benign. EXTREMITIES: No pedal edema. SKIN: No rashes. NEUROLOGIC: Alert and oriented x3. No focal deficits. LABS: No labs done from today. IMPRESSION: 1. Acute sigmoid diverticulitis on broad-spectrum antibiotics with slow improvement. 2. Chronic constipation. No help with Colace or magnesium citrate. 3. History of hypertension. 4. Chronic obstructive pulmonary disease. 5. History of hypothyroidism. RECOMMENDATIONS: 1. Will discontinue Colace. 2. Start on MiraLAX one scoop daily. 3. Continue with broad-spectrum antibiotics. 4. Obtain CBC today. 5. We will follow with you closely. Thank you for this consultation. MMODL / IJN: [id number] /
[2020-10-19] MEDS: LEVOFLOXACIN 250MG-D5W PMX 250 MG in DEXTROSE/WATER 1 50ML.BAG IVPB SCH (11:05)
--- NOTE | 2020-10-19 12:41 | P.PN ---
Subjective Progress Note Date: 10/19/20 CHIEF COMPLAINT: Diverticulitis HISTORY OF PRESENT ILLNESS: The patient is a 85-year-old female admitted for diverticulitis. She still reports pressure along the rectum. No further left lower quadrant abdominal pain. She does report feeling worse today than yesterday. She was placed on Colace which exacerbated her abdominal pain. ROS: No reports of nausea and vomiting. No fevers or chills. No new chest pain. PHYSICAL EXAM: VITAL SIGNS: Reviewed CONSTITUTIONAL: Well developed and in no acute distress. EYES: Conjuctivae without sclera icterus. Extraocular movements grossly intact. HEAD, EARS, NOSE, THROAT: Moist buccal mucosa. Head is atraumatic, normocephalic. Hears conversational speech. No nasal drainage. NECK: Supple. No thyroidomegaly. RESPIRATORY: Non-labored respirations and equal bilateral excursions. CARDIOVASCULAR: 2+ radial pulses. ABDOMEN: Protuberant. No peritonitis. MUSCULOSKELETAL: No gross deformity of the lower extremities noted. No clubbing. No cyanosis. SKIN: Good skin turgor. Well perfused. NEUROLOGIC: Cranial nerves II through XII grossly intact. No focal or lateralizing signs. PSYCH: Appropriate affect. Alert and oriented to person, place and time. CLINICAL LABS: WBC elevated 11.6. Creatinine elevated 1.16 STUDIES: CT of the abdomen and pelvis and independent reviewed demonstrating moderate stool burden along the sigmoid colon including incisional hernia of the midline. It is my independent interpretation. No inflammatory changes along the rectum up hernia identified. ASSESSMENT: 1. Diverticulitis 2. Morbid obesity PLAN: 1. Her clinical course has not completely improved with regards to her perirectal pain. 2. With her new elevated white count including meandering symptoms, may benefit from repeat CT of the abdomen and pelvis. 3. May also benefit for adjustment of IV antibiotics. Objective - Vital Signs Vital signs: Vital Signs Temp 98.0 F 10/19/20 07:57 Pulse 94 10/19/20 07:57 Resp 16 10/19/20 07:57 BP 146/64 10/19/20 07:57 Pulse Ox 95 10/19/20 07:57 Intake & Output 10/18/20 10/19/20 10/19/20 18:59 06:59 18:59 Intake Total 200 120 Balance 200 120 Intake: Oral 200 120 Other: Voiding Method Toilet Toilet Toilet # Voids 2 3 1 # Bowel Movements 1 - Labs CBC & Chem 7: 10/19/20 09:49 10/19/20 09:49 Labs: Abnormal Lab Results - Last 24 Hours (Table) 10/19/20 10/19/20 10/19/20 Range/Units 09:49 09:49 09:49 WBC 11.7 H 11.4 H (3.8-10.6) k/uL Neutrophils # 8.5 H 8.3 H (1.3-7.7) k/uL Creatinine 1.16 H (0.52-1.04) mg/dL Glucose 194 H (74-99) mg/dL Assessment and Plan (1) Abdominal pain Current Visit: Yes Status: Acute Code(s): R10.9 - UNSPECIFIED ABDOMINAL PAIN SNOMED Code(s): 86367869 (2) Diverticulitis Current Visit: Yes Status: Acute Code(s): K57.92 - DVTRCLI OF INTEST, PART UNSP, W/O PERF OR ABSCESS W/O BLEED SNOMED Code(s): 825875209
[2020-10-19] MEDS: FUROSEMIDE 40 MG TAB PO SCH (12:45)
[2020-10-20] MEDS: traMADol 50 MG TAB PO PRN ×3 (01:43→20:00)
[2020-10-20] MEDS: LEVOTHYROXINE 100 MCG TAB PO SCH (05:33)
[2020-10-20] MEDS: ACETAMINOPHEN TAB 325 MG TAB PO PRN (05:36)
[2020-10-20] MEDS: metroNIDAZOLE-NS PMX 500 MG in SALINE 1 100ML.BAG IVPB SCH ×3 (07:41→23:48)
[2020-10-20] MEDS: PANTOPRAZOLE 40 MG TABLET PO SCH (07:42)
[2020-10-20] MEDS: LOSARTAN 50 MG TAB PO SCH (07:42)
[2020-10-20] MEDS: polyethylene glycoL 3350 17 GM POWD.PACK PO SCH (07:42)
[2020-10-20] MEDS: HEPARIN SODIUM,PORCINE 5,000 UNIT/ML 1 ML VIAL SQ SCH ×2 (07:42→19:53)
[2020-10-20] MEDS: ASCORBIC ACID 500 MG TAB PO SCH (07:42)
[2020-10-20] MEDS: ZINC SULFATE 220 MG CAP PO SCH (07:42)
[2020-10-20] MEDS: PATIENT'S OWN (Rosuvastatin 10 MG Tablet) PO SCH (07:43)
[2020-10-20] MEDS: SYMBICORT 80-4.5 MCG INHALER INHALATION SCH ×2 (08:45→21:32)
[2020-10-20 09:27] LABS: Glucose,Whole Blood 164 mg/dL (75-99)
[2020-10-20 09:27] LABS: Glucose,Whole Blood 150 mg/dL (75-99)
[2020-10-20 09:27] LABS: Glucose,Whole Blood 135 mg/dL (75-99)
[2020-10-20 09:27] LABS: Glucose,Whole Blood 249 mg/dL (75-99)
[2020-10-20 09:28] LABS: Glucose,Whole Blood 206 mg/dL (75-99)
[2020-10-20 09:29] LABS: Glucose,Whole Blood 141 mg/dL (75-99)
[2020-10-20 09:30] LABS: Glucose,Whole Blood 152 mg/dL (75-99)
[2020-10-20 09:31] LABS: Glucose,Whole Blood 185 mg/dL (75-99)
[2020-10-20 09:31] LABS: Glucose,Whole Blood 147 mg/dL (75-99)
[2020-10-20 09:32] LABS: Glucose,Whole Blood 146 mg/dL (75-99)
[2020-10-20 09:33] LABS: Glucose,Whole Blood 199 mg/dL (75-99)
[2020-10-20 09:37] LABS: Glucose,Whole Blood 153 mg/dL (75-99)
--- NOTE | 2020-10-20 10:46 | P.PN ---
Subjective Progress Note Date: 10/20/20 CHIEF COMPLAINT: Diverticulitis HISTORY OF PRESENT ILLNESS: The patient is a 85-year-old female admitted for diverticulitis. She reports increased abdominal pain. She had elevated WBC. ROS: No reports of nausea and vomiting. No fevers or chills. No new chest pain. PHYSICAL EXAM: VITAL SIGNS: Reviewed CONSTITUTIONAL: Well developed and in no acute distress. EYES: Conjuctivae without sclera icterus. Extraocular movements grossly intact. HEAD, EARS, NOSE, THROAT: Moist buccal mucosa. Head is atraumatic, normocephalic. Hears conversational speech. No nasal drainage. NECK: Supple. No thyroidomegaly. RESPIRATORY: Non-labored respirations and equal bilateral excursions. CARDIOVASCULAR: 2+ radial pulses. ABDOMEN: Protuberant. Tender left lower quadrant and suprapubic. MUSCULOSKELETAL: No gross deformity of the lower extremities noted. No clubbing. No cyanosis. SKIN: Good skin turgor. Well perfused. NEUROLOGIC: Cranial nerves II through XII grossly intact. No focal or later alizing signs. PSYCH: Appropriate affect. Alert and oriented to person, place and time. CLINICAL LABS: BSG 142. ASSESSMENT: 1. Diverticulitis 2. Morbid obesity PLAN: 1. Her abdominal pain is worsening and will obtain CT of the abdomen/pelvis 2. May need adjustment of antibiotics as clinical course has not improved significantly. Objective - Vital Signs Vital signs: Vital Signs Temp 98.1 F 10/20/20 08:00 Pulse 95 10/20/20 08:00 Resp 18 10/20/20 08:00 BP 98/61 10/20/20 08:00 Pulse Ox 93 L 10/20/20 08:00 Intake & Output 10/19/20 10/20/20 10/20/20 18:59 06:59 18:59 Intake Total 240 100 Balance 240 100 Intake: IV 100 metroNIDAZOLE-NS PMX 500 100 mg In Saline 1 100ml.bag @ 100 mls/hr IVPB Q8HR DU Rx#:[id number] Oral 240 Other: Voiding Method Toilet Toilet Toilet # Voids 1 1 # Bowel Movements 1 - Labs CBC & Chem 7: 10/19/20 09:49 10/19/20 09:49 Labs: Abnormal Lab Results - Last 24 Hours (Table) 12/10/17/20 10/17/20 Range/Units 11:55 16:29 19:50 POC Glucose (mg/dL) 153 H 147 H 185 H (75-99) mg/dL 10/18/20 10/18/20 10/18/20 Range/Units 06:01 11:30 17:24 POC Glucose (mg/dL) 146 H 199 H 141 H (75-99) mg/dL 10/18/20 10/19/20 10/19/20 Range/Units 20:30 07:31 11:42 POC Glucose (mg/dL) 164 H 135 H 249 H (75-99) mg/dL 10/19/20 10/19/20 10/20/20 Range/Units 16:49 19:56 07:40 POC Glucose (mg/dL) 150 H 206 H 152 H (75-99) mg/dL Assessment and Plan (1) Abdominal pain Current Visit: Yes Status: Acute Code(s): R10.9 - UNSPECIFIED ABDOMINAL PAIN SNOMED Code(s): 68589034 (2) Diverticulitis Current Visit: Yes Status: Acute Code(s): K57.92 - DVTRCLI OF INTEST, PART UNSP, W/O PERF OR ABSCESS W/O BLEED SNOMED Code(s): 942416559
[2020-10-20] MEDS: FUROSEMIDE 40 MG TAB PO SCH (10:55)
[2020-10-20] MEDS: LEVOFLOXACIN 250MG-D5W PMX 250 MG in DEXTROSE/WATER 1 50ML.BAG IVPB SCH (10:55)
[2020-10-20] MEDS: IOPAMIDOL CONTRAST (ORAL USE) VIAL PO PRN ×2 (10:55→12:03)
[2020-10-20 11:44] LABS: Glucose,Whole Blood 208 mg/dL (75-99)
--- NOTE | 2020-10-20 13:08 | CT ---
EXAMINATION TYPE: CT abdomen pelvis w con DATE OF EXAM: 10/20/2020 COMPARISON: 10/14/2020 HISTORY: 85-year-old female LLQ pain TECHNIQUE: Contiguous axial scanning of the abdomen and pelvis following administration of 100 ml Iso naina 300 IV contrast. Delayed images through the kidneys and coronal/sagittal reconstructions perform ed. CT DLP: 3445.5 mGycm Automated exposure control for dose reduction was used. FINDINGS: Heart upper limits of normal in size without pericardial effusion. Prominent dependent atelectasis at the posterior right base. Tiny hernia. Liver borderline in size at 17.8 cm without focal lesion. No biliary ductal dilatation. Gallbladder s urgically absent. Portal venous system is patent. Adrenal glands, left kidney, spleen, pancreas within normal limits. Right kidney is slightly malrotat ed. Retroaortic left renal vein. Mild atherosclerotic calcifications of abdominal aorta and common iliac arteries. No dilated small bowel, free fluid, or free air. No mesenteric or retroperitoneal lymph adenopathy. Small fatty umbilical hernia. Normal appendix. Mild stool burden. Left-sided colonic diverticulosis. Mild pericolonic inflammation along the proximal sigmoid shows no progression as compared to the rece nt 10/14/2020 exam. There may be slight improvement near on axial images 58 there is 63. Bladder partially distended. Mild circumferential wall thickening may be due to partial distention. U terus anteverted. Both ovaries are visualized. Mild presacral edema is unchanged. Otherwise, no abnor mal fluid collection the pelvis or pelvic lymphadenopathy. Bones: Osteitis pubis. Moderate degenerative change at both hips. Moderate degenerative disc disease L3-L4. 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 Grade 1 anterolisthesis L3 -L4 and L4-L5. IMPRESSION: 1. The previous mild acute diverticulitis along the proximal sigmoid colon shows no interval progress ion. There may be some improvement from the prior exam. 2. No abscess, free air, or evident complication. 3. Mild circumferential bladder wall thickening may relate to incomplete distention. Correlate to cys titis.
[2020-10-20 16:55] LABS: Glucose,Whole Blood 191 mg/dL (75-99)
--- NOTE | 2020-10-20 18:31 | PN ---
PROGRESS NOTE DATE OF DICTATION: October 20, 2020 Patient is an 85-year-old pleasant white female admitted to hospital with acute sigmoid diverticulitis. She is on broad-spectrum antibiotics day #5. She is doing better. She still complains of occasional lower abdominal pain and constipation. She was started on MiraLAX yesterday and her bowel movements are much better. PHYSICAL EXAMINATION: She appears comfortable. No apparent distress. Vital signs stable. Blood pressure is 133/86, pulse rate 82 per minute and afebrile. HEENT examination unremarkable. Conjunctivae pink. Sclerae anicteric. Oral cavity no lesions. Neck no JVD or lymph node enlargement. Chest was clear to auscultation. HEART: Regular rate and rhythm. ABDOMEN: Obese. Bowel sounds are positive. Minimal tenderness in the suprapubic area. Extremities: No pedal edema. Skin no rashes. Neuro: She is alert and oriented x3. No focal deficits. LABS: From yesterday WBC was 11.4, hemoglobin 12.5, platelets normal. Basic metabolic panel is within normal limits. IMPRESSION: 1. Acute sigmoid diverticulitis on broad-spectrum antibiotics. Patient gradually improving. 2. Chronic constipation. 3. History of irritable bowel syndrome. RECOMMENDATIONS: 1. Continue with antibiotics. 2. Continue with MiraLAX as needed. 3. She can be discharged home from GI standpoint. 4. We will follow with you closely. Thank you for this consultation. MARLENY / KOLE: [id number] /
[2020-10-20 20:36] LABS: Glucose,Whole Blood 248 mg/dL (75-99)
[2020-10-21] MEDS: traMADol 50 MG TAB PO PRN ×2 (01:23→19:08)
[2020-10-21] MEDS: LEVOTHYROXINE 100 MCG TAB PO SCH (05:28)
[2020-10-21] MEDS: SYMBICORT 80-4.5 MCG INHALER INHALATION SCH ×2 (07:25→19:20)
[2020-10-21 08:06] LABS: Glucose,Whole Blood 151 mg/dL (75-99)
[2020-10-21] MEDS: HEPARIN SODIUM,PORCINE 5,000 UNIT/ML 1 ML VIAL SQ SCH ×2 (08:21→19:09)
[2020-10-21] MEDS: PANTOPRAZOLE 40 MG TABLET PO SCH (08:21)
[2020-10-21] MEDS: LOSARTAN 50 MG TAB PO SCH (08:22)
[2020-10-21] MEDS: ASCORBIC ACID 500 MG TAB PO SCH (08:22)
[2020-10-21] MEDS: metroNIDAZOLE-NS PMX 500 MG in SALINE 1 100ML.BAG IVPB SCH (08:22)
[2020-10-21] MEDS: ZINC SULFATE 220 MG CAP PO SCH (08:23)
[2020-10-21] MEDS: polyethylene glycoL 3350 17 GM POWD.PACK PO SCH (10:36)
[2020-10-21] MEDS: PATIENT'S OWN (Rosuvastatin 10 MG Tablet) PO SCH (10:39)
[2020-10-21 11:43] LABS: Glucose,Whole Blood 206 mg/dL (75-99)
[2020-10-21] MEDS: LEVOFLOXACIN 250MG-D5W PMX 250 MG in DEXTROSE/WATER 1 50ML.BAG IVPB SCH (12:21)
[2020-10-21] MEDS: FUROSEMIDE 40 MG TAB PO SCH (12:22)
[2020-10-21 13:31] VITALS: BMI 46.9
--- NOTE | 2020-10-21 14:06 | P.PN ---
Progress Note - Text Progress Note Date: 10/21/20 The patient's loss complaints of left lower quadrant pain. Her CAT scan performed yesterday shows stable diverticulitis. On exam vital signs are stable. Abdomen soft. There is mild tenderness left lower quadrant. Slowly improving diverticular disease. Patient will be discharged hopefully h ome the next 24-48 hours.
--- NOTE | 2020-10-21 15:37 | P.PN ---
Subjective Progress Note Date: 10/21/20 Principal diagnosis: Abdominal pain, acute sigmoid diverticulitis Patient is seen lying in bed reporting that she is tolerating diet. One loose bowel movement today. No signs or symptoms of GI bleeding. Objective - Vital Signs Vital signs: Vital Signs Temp 98.0 F 10/21/20 07:12 Pulse 89 10/21/20 07:12 Resp 17 10/21/20 07:12 BP 132/69 10/21/20 07:12 Pulse Ox 91 L 10/21/20 07:12 Intake & Output 10/20/20 10/21/20 10/21/20 18:59 06:59 18:59 Intake Total 50 180 Balance 50 180 Weight 120.202 kg Intake: Intake, IV Titration 50 Amount Levofloxacin 250Mg-D5w 50 Pmx 250 mg In Dextrose/ Water 1 50ml.bag @ 50 mls /hr IVPB Q24H [facility] Rx#: [id number] Oral 180 Other: Voiding Method Toilet Toilet # Voids 1 1 # Bowel Movements 1 1 - Exam On physical examination, patient appears comfortable in no apparent distress. HEAD: Normocephalic, atraumatic. EYES: No scleral icterus. No conjunctival injection. MOUTH: No lesions, tongue midline. NECK: Trachea midline, no gross abnormalities. ABDOMEN: Soft, obese and mildly tender to palpation. Bowel sounds are positive. No organomegaly. No guarding or rigidity. EXTREMITIES: No pedal edema. SKIN: No rashes, no jaundice. NEUROLOGIC: Alert and oriented x3. No focal deficits. - Labs CBC & Chem 7: 10/19/20 09:49 10/19/20 09:49 Labs: Abnormal Lab Results - Last 24 Hours (Table) 10/20/20 10/20/20 10/21/20 Range/Units 16:53 20:32 08:05 POC Glucose (mg/dL) 191 H 248 H 151 H (75-99) mg/dL 10/21/20 Range/Units 11:38 POC Glucose (mg/dL) 206 H (75-99) mg/dL Assessment and Plan (1) Abdominal pain Narrative/Plan: 85-year-old female with multiple medical comorbidities currently being treated for acute uncomplicated diverticulitis. Currently she is tolerating diet and reporting that abdominal pain is improving. Current Visit: Yes Status: Acute Code(s): R10.9 - UNSPECIFIED ABDOMINAL PAIN SNOMED Code(s): 25062604 (2) Diverticulitis Current Visit: Yes Status: Acute Code(s): K57.92 - DVTRCLI OF INTEST, PART UNSP, W/O PERF OR ABSCESS W/O BLEED SNOMED Code(s): 630919518 Plan: Supportive care Okay for low fiber low residual diet as tolerated Continue broad-spectrum antibiotics Surgical service is following Continue to monitor CBC, BMP, LFTs No plans for endoscopic evaluation at this time Taken for allowing us to participate in the care of the patient we will continue to follow
[2020-10-21] MEDS ORDERED: metroNIDAZOLE 500 MG TAB PO SCH (16:00)
[2020-10-21 17:07] LABS: Glucose,Whole Blood 215 mg/dL (75-99)
[2020-10-21 20:28] LABS: Glucose,Whole Blood 290 mg/dL (75-99)
[2020-10-21 23:00] LABS: Glucose,Whole Blood 183 mg/dL (75-99)
[2020-10-21] MEDS: metroNIDAZOLE 500 MG TAB PO SCH (23:02)
[2020-10-21] MEDS: ACETAMINOPHEN TAB 325 MG TAB PO PRN (23:02)
[2020-10-21] MEDS: INSULIN ASPART (NovoLOG) 100 UNIT/ML VIAL SQ SCH (23:03)
[2020-10-22] MEDS: traMADol 50 MG TAB PO PRN ×2 (02:44→15:02)
[2020-10-22] MEDS: LEVOTHYROXINE 100 MCG TAB PO SCH (05:29)
[2020-10-22 07:07] LABS: Glucose,Whole Blood 151 mg/dL (75-99)
[2020-10-22] MEDS: SYMBICORT 80-4.5 MCG INHALER INHALATION SCH ×2 (07:26→19:52)
[2020-10-22] MEDS: INSULIN ASPART (NovoLOG) 100 UNIT/ML VIAL SQ SCH ×4 (08:28→21:02)
[2020-10-22] MEDS: metroNIDAZOLE 500 MG TAB PO SCH ×3 (08:30→21:02)
[2020-10-22] MEDS: ZINC SULFATE 220 MG CAP PO SCH (08:30)
[2020-10-22] MEDS: HEPARIN SODIUM,PORCINE 5,000 UNIT/ML 1 ML VIAL SQ SCH ×2 (08:30→21:02)
[2020-10-22] MEDS: PANTOPRAZOLE 40 MG TABLET PO SCH (08:30)
[2020-10-22] MEDS: ASCORBIC ACID 500 MG TAB PO SCH (08:30)
[2020-10-22] MEDS: PATIENT'S OWN (Rosuvastatin 10 MG Tablet) PO SCH (08:30)
[2020-10-22] MEDS: LOSARTAN 50 MG TAB PO SCH (08:30)
[2020-10-22] MEDS: polyethylene glycoL 3350 17 GM POWD.PACK PO SCH (08:31)
[2020-10-22] MEDS: LEVOFLOXACIN 250 MG TAB PO SCH (08:31)
--- NOTE | 2020-10-22 10:30 | P.PN ---
Subjective Progress Note Date: 10/18/20 Principal diagnosis: Acute diverticulitis Hypertension hypertensive cardiovascular disease Dyslipidemia Morbid obesity Type 2 diabetes mellitus 10/18/2020, patient seen eval examined during the rounds labs reviewed medications reviewed, respiratory status remains stable tolerating by mouth well, patient remains on antibiotics and supportive care, 10/17/2020, abdominal pain is improved, denies any chest pain, patient is being given clear liquid diet gently rehydrated on antibiotics, continue supportive care from medical standpoint can be discharged on oral antibiotics like Cipro and Flagyl This is a pleasant 85-year-old female with history of diverticulosis diabetes mellitus COPD dyslipidemia hypertension hypertensive cardiovascular disease, she is been having lower abdominal pain for last 2 week came into the hospital due to intermittent pain and persistent however she denies any fever and denies any diarrhea, she has ongoing constipation as well, she has been started on IV antibiotics and computed tomography scan of the abdominal and pelvis revealed diverticulitis without any abscess formation, Objective - Vital Signs Vital signs: Vital Signs Temp 98.5 F 10/18/20 13:07 Pulse 89 10/18/20 13:07 Resp 18 10/18/20 13:07 BP 109/64 10/18/20 13:07 Pulse Ox 96 10/18/20 13:07 Intake & Output 10/17/20 10/18/20 10/18/20 18:59 06:59 18:59 Intake Total 1150 200 Output Total 1 Balance 1149 200 Intake: IV 300 Levofloxacin 500Mg-D5w 100 Pmx 500 mg In Dextrose/ Water 1 100ml.bag @ 100 mls/hr IVPB Q24H [facility] Rx#: [id number] metroNIDAZOLE-NS PMX 500 200 mg In Saline 1 100ml.bag @ 100 mls/hr IVPB Q8HR [facility] Rx#:[id number] Oral 850 200 Output: Urine/Stool Mix 1 Other: Voiding Method Toilet Toilet Toilet # Voids 1 2 1 # Bowel Movements 1 - Exam - Constitutional General appearance: average body habitus, disheveled, morbidly obese - EENT Eyes: PERRLA Ears: bilateral: normal - Neck Carotids: bilateral: upstroke normal - Respiratory Respiratory: bilateral: CTA - Cardiovascular Rhythm: regular Heart sounds: normal: S1, S2 - Gastrointestinal General gastrointestinal: distended Localized gastrointestinal: tender: diffuse - Integumentary Integumentary: normal turgor - Neurologic Neurologic: CNII-XII intact - Musculoskeletal Musculoskeletal: gait normal, generalized weakness, strength equal bilaterally - Psychiatric Psychiatric: A&O x's 3, appropriate affect, intact judgment & insight - Labs CBC & Chem 7: 10/19/20 09:49 10/19/20 09:49 Assessment and Plan Assessment: Acute diverticulitis Hypertension hypertensive cardiovascular disease Dyslipidemia Morbid obesity Type 2 diabetes mellitus Plan: Gentle rehydration Broad-spectrum antibiotics Resume home medications Sliding scale insulin Bronchodilator as needed Other recommendations pending plan of care as per clinical response of the patient Time with Patient: Greater than 30
--- NOTE | 2020-10-22 10:31 | P.PN ---
Subjective Progress Note Date: 10/19/20 Principal diagnosis: Acute diverticulitis Hypertension hypertensive cardiovascular disease Dyslipidemia Morbid obesity Type 2 diabetes mellitus 10/19/2020, patient has been tolerating diet fairly well no GI symptoms are seen, patient remains on antibiotics, remains afebrile, oxygen saturation O2 96%, 10/18/2020, patient seen eval examined during the rounds labs reviewed me dications reviewed, respiratory status remains stable tolerating by mouth well, patient remains on antibiotics and supportive care, 10/17/2020, abdominal pain is improved, denies any chest pain, patient is being given clear liquid diet gently rehydrated on antibiotics, continue supportive care from medical standpoint can be discharged on oral antibiotics like Cipro and Flagyl This is a pleasant 85-year-old female with history of diverticulosis diabetes mellitus COPD dyslipidemia hypertension hypertensive cardiovascular disease, she is been having lower abdominal pain for last 2 week came into the hospital due to intermittent pain and persistent however she denies any fever and denies any diarrhea, she has ongoing constipation as well, she has been started on IV antibiotics and computed tomography scan of the abdominal and pelvis revealed diverticulitis without any abscess formation, Objective - Vital Signs Vital signs: Vital Signs Temp 98.0 F 10/19/20 07:57 Pulse 94 10/19/20 07:57 Resp 16 10/19/20 07:57 BP 146/64 10/19/20 07:57 Pulse Ox 95 10/19/20 07:57 Intake & Output 10/18/20 10/19/20 10/19/20 18:59 06:59 18:59 Intake Total 200 120 Balance 200 120 Intake: Oral 200 120 Other: Voiding Method Toilet Toilet Toilet # Voids 2 3 1 # Bowel Movements 1 - Exam - Constitutional General appearance: average body habitus, disheveled, morbidly obese - EENT Eyes: PERRLA Ears: bilateral: normal - Neck Carotids: bilateral: upstroke normal - Respiratory Respiratory: bilateral: CTA - Cardiovascular Rhythm: regular Heart sounds: normal: S1, S2 - Gastrointestinal General gastrointestinal: distended Localized gastrointestinal: tender: diffuse - Integumentary Integumentary: normal turgor - Neurologic Neurologic: CNII-XII intact - Musculoskeletal Musculoskeletal: gait normal, generalized weakness, strength equal bilaterally - Psychiatric Psychiatric: A&O x's 3, appropriate affect, intact judgment & insight - Labs CBC & Chem 7: 12/26/20 09:49 10/19/20 09:49 Labs: Abnormal Lab Results - Last 24 Hours (Table) 10/19/20 10/19/20 10/19/20 Range/Units 09:49 09:49 09:49 WBC 11.7 H 11.4 H (3.8-10.6) k/uL Neutrophils # 8.5 H 8.3 H (1.3-7.7) k/uL Creatinine 1.16 H (0.52-1.04) mg/dL Glucose 194 H (74-99) mg/dL Assessment and Plan Assessment: Acute diverticulitis Hypertension hypertensive cardiovascular disease Dyslipidemia Morbid obesity Type 2 diabetes mellitus Plan: Gentle rehydration Broad-spectrum antibiotics Resume home medications Sliding scale insulin Bronchodilator as needed Other recommendations pending plan of care as per clinical response of the patient Time with Patient: Greater than 30
--- NOTE | 2020-10-22 10:33 | P.PN ---
Subjective Progress Note Date: 10/20/20 Principal diagnosis: Acute diverticulitis Hypertension hypertensive cardiovascular disease Dyslipidemia Morbid obesity Type 2 diabetes mellitus 10/20/2020, appetite continued to improve, tolerating by mouth well oxygenation is stable remains afebrile, patient underwent CT of the abdominal and pelvis, we will diverticulitis is a free air 10/19/2020, patient has been tolerating diet fairly well no GI symptoms are seen, patient remains on antibiotics, remains afebrile, oxygen saturation O2 96%, 10/18/2020, patient seen eval examined during the rounds labs reviewed medica tions reviewed, respiratory status remains stable tolerating by mouth well, patient remains on antibiotics and supportive care, 10/17/2020, abdominal pain is improved, denies any chest pain, patient is being given clear liquid diet gently rehydrated on antibiotics, continue supportive care from medical standpoint can be discharged on oral antibiotics like Cipro and Flagyl 10/17/2020, abdominal pain is improved, denies any chest pain, patient is being given clear liquid diet gently rehydrated on antibiotics, continue supportive care from medical standpoint can be discharged on oral antibiotics like Cipro and Flagyl This is a pleasant 85-year-old female with history of diverticulosis diabetes mellitus COPD dyslipidemia hypertension hypertensive cardiovascular disease, she is been having lower abdominal pain for last 2 week came into the hospital due to intermittent pain and persistent however she denies any fever and denies any diarrhea, she has ongoing constipation as well, she has been started on IV antibiotics and computed tomography scan of the abdominal and pelvis revealed diverticulitis without any abscess formation, Objective - Vital Signs Vital signs: Vital Signs Temp 98.2 F 10/20/20 14:00 Pulse 78 10/20/20 14:00 Resp 18 10/20/20 14:00 BP 124/59 10/20/20 14:00 Pulse Ox 94 L 10/20/20 14:00 Intake & Output 10/19/20 10/20/20 10/20/20 18:59 06:59 18:59 Intake Total 240 100 Balance 240 100 Intake: IV 100 metroNIDAZOLE-NS PMX 500 100 mg In Saline 1 100ml.bag @ 100 mls/hr IVPB Q8HR [facility] Rx#:[id number] Oral 240 Other: Voiding Method Toilet Toilet Toilet # Voids 1 1 2 # Bowel Movements 1 2 - Exam - Constitutional General appearance: average body habitus, disheveled, morbidly obese - EENT Eyes: PERRLA Ears: bilateral: normal - Neck Carotids: bilateral: upstroke normal - Respiratory Respiratory: bilateral: CTA - Cardiovascular Rhythm: regular Heart sounds: normal: S1, S2 - Gastrointestinal General gastrointestinal: distended Localized gastrointestinal: tender: diffuse - Integumentary Integumentary: normal turgor - Neurologic Neurologic: CNII-XII intact - Musculoskeletal Musculoskeletal: gait normal, generalized weakness, strength equal bilaterally - Psychiatric Psychiatric: A&O x's 3, appropriate affect, intact judgment & insight - Labs CBC & Chem 7: 10/19/20 09:49 10/19/20 09:49 Labs: Abnormal Lab Results - Last 24 Hours (Table) 10/17/20 10/17/20 10/17/20 Range/Units 11:55 16:29 19:50 POC Glucose (mg/dL) 153 H 147 H 185 H (75-99) mg/dL 10/18/20 10/18/20 10/18/20 Range/Units 06:01 11:30 17:24 POC Glucose (mg/dL) 146 H 199 H 141 H (75-99) mg/dL 10/18/20 10/19/20 10/19/20 Range/Units 20:30 07:31 11:42 POC Glucose (mg/dL) 164 H 135 H 249 H (75-99) mg/dL 10/19/20 10/19/20 10/20/20 Range/Units 16:49 19:56 07:40 POC Glucose (mg/dL) 150 H 206 H 152 H (75-99) mg/dL 10/20/20 Range/Units 11:42 POC Glucose (mg/dL) 208 H (75-99) mg/dL Assessment and Plan Assessment: Acute diverticulitis Hypertension hypertensive cardiovascular disease Dyslipidemia Morbid obesity Type 2 diabetes mellitus Plan: Gentle rehydration Broad-spectrum antibiotics Resume home medications Sliding scale insulin Bronchodilator as needed Other recommendations pending plan of care as per clinical response of the patient Time with Patient: Greater than 30
--- NOTE | 2020-10-22 10:35 | P.PN ---
Subjective Progress Note Date: 10/21/20 Principal diagnosis: Acute diverticulitis Hypertension hypertensive cardiovascular disease Dyslipidemia Morbid obesity Type 2 diabetes mellitus 10/21/2020, patient seen and evaluated examined prescription entered into the computer for outpatient antibiotics stable from medical standpoint for discharge 10/20/2020, appetite continued to improve, tolerating by mouth well oxygenation is stable remains afebrile, patient underwent CT of the abdominal and pelvis, we will diverticulitis is a free air 10/19/2020, patient has been tolerating diet fairly well no GI symptoms are seen, patient remains on antibiotics, remains afebrile, oxygen saturation O2 96%, 10/18/2020, patient seen eval examined during the rounds labs reviewed medications reviewed, respiratory status remains stable tolerating by mouth well, patient remains on antibiotics and supportive care, 10/17/2020, abdominal pain is improved, denies any chest pain, patient is being given clear liquid diet gently rehydrated on antibiotics, continue supportive care from medical standpoint can be discharged on oral antibiotics like Cipro and Flagyl This is a pleasant 85-year-old female with history of diverticulosis diabetes mellitus COPD dyslipidemia hypertension hypertensive cardiovascular disease, she is been having lower abdominal pain for last 2 week came into the hospital due to intermittent pain and persistent however she denies any fever and denies any diarrhea, she has ongoing constipation as well, she has been started on IV antibiotics and computed tomography scan of the abdominal and pelvis revealed diverticulitis without any abscess formation, Objective - Vital Signs Vital signs: Vital Signs Temp 97.7 F 10/21/20 19:30 Pulse 95 10/21/20 19:30 Resp 18 10/21/20 19:30 BP 150/89 10/21/20 19:30 Pulse Ox 96 10/21/20 14:37 Intake & Output 10/21/20 10/21/20 10/22/20 06:59 18:59 06:59 Intake Total 50 1380 Balance 50 1380 Weight 120.202 kg Intake: Intake, IV Titration 50 250 Amount Levofloxacin 250Mg-D5w 50 50 Pmx 250 mg In Dextrose/ Water 1 50ml.bag @ 50 mls /hr IVPB Q24H [facility] Rx#: [id number] metroNIDAZOLE-NS PMX 500 200 mg In Saline 1 100ml.bag @ 100 mls/hr IVPB Q8HR [facility] Rx#:[id number] Oral 1130 Other: Voiding Method Toilet # Voids 1 4 1 # Bowel Movements 1 3 1 - Exam - Constitutional General appearance: average body habitus, disheveled, morbidly obese - EENT Eyes: PERRLA Ears: bilateral: normal - Neck Carotids: bilateral: upstroke normal - Respiratory Respiratory: bilateral: CTA - Cardiovascular Rhythm: regular Heart sounds: normal: S1, S2 - Gastrointestinal General gastrointestinal: distended Localized gastrointestinal: tender: diffuse - Integumentary Integumentary: normal turgor - Neurologic Neurologic: CNII-XII intact - Musculoskeletal Musculoskeletal: gait normal, generalized weakness, strength equal bilaterally - Psychiatric Psychiatric: A&O x's 3, appropriate affect, intact judgment & insight - Labs CBC & Chem 7: 10/19/20 09:49 10/19/20 09:49 Labs: Abnormal Lab Results - Last 24 Hours (Table) 10/21/20 10/21/20 10/21/20 Range/Units 08:05 11:38 17:06 POC Glucose (mg/dL) 151 H 206 H 215 H (75-99) mg/dL 10/21/20 Range/Units 20:26 POC Glucose (mg/dL) 290 H (75-99) mg/dL Assessment and Plan Assessment: Acute diverticulitis Hypertension hypertensive cardiovascular disease Dyslipidemia Morbid obesity Type 2 diabetes mellitus Plan: Gentle rehydration Broad-spectrum antibiotics Resume home medications Sliding scale insulin Bronchodilator as needed Other recommendations pending plan of care as per clinical response of the patient Time with Patient: Greater than 30
--- NOTE | 2020-10-22 10:36 | P.PN ---
Subjective Progress Note Date: 10/22/20 Principal diagnosis: Acute diverticulitis Hypertension hypertensive cardiovascular disease Dyslipidemia Morbid obesity Type 2 diabetes mellitus 10/22/2020, patient seen eval examined during the rounds, tolerating diet fairly well, noted patient is on 2 L oxygen recommend to check room air pulse ox more than 90% will DC the oxygen prescription of the antibiotics in chart 10/21/2020, patient seen and evaluated examined prescription entered into the computer for outpatient antibiotics stable from medical standpoint for discharge 10/20/2020, appetite continued to improve, tolerating by mouth well oxygenation is stable remains afebrile, patient underwent CT of the abdominal and pelvis, we will diverticulitis is a free air 10/19/2020, patient has been tolerating diet fairly well no GI symptoms are seen, patient remains on antibiotics, remains afebrile, oxygen saturation O2 96%, 10/18/2020, patient seen eval examined during the rounds labs reviewed medications reviewed, respiratory status remains stable tolerating by mouth well, patient remains on antibiotics and supportive care, 10/17/2020, abdominal pain is improved, denies any chest pain, patient is being given clear liquid diet gently rehydrated on antibiotics, continue supportive care from medical standpoint can be discharged on oral antibiotics like Cipro and Flagyl This is a pleasant 85-year-old female with history of diverticulosis diabetes mellitus COPD dyslipidemia hypertension hypertensive cardiovascular disease, she is been having lower abdominal pain for last 2 week came into the hospital due to intermittent pain and persistent however she denies any fever and denies any diarrhea, she has ongoing constipation as well, she has been started on IV antibiotics and computed tomography scan of the abdominal and pelvis revealed diverticulitis without any abscess formation, Objective - Vital Signs Vital signs: Vital Signs Temp 97.8 F 10/22/20 07:39 Pulse 84 10/22/20 07:39 Resp 16 10/22/20 07:39 BP 137/73 10/22/20 07:39 Pulse Ox 95 10/22/20 07:39 Intake & Output 10/21/20 10/22/20 10/22/20 18:59 06:59 18:59 Intake Total 1380 236 Balance 1380 236 Weight 120.202 kg Intake: Intake, IV Titration 250 Amount Levofloxacin 250Mg-D5w 50 Pmx 250 mg In Dextrose/ Water 1 50ml.bag @ 50 mls /hr IVPB Q24H [facility] Rx#: [id number] metroNIDAZOLE-NS PMX 500 200 mg In Saline 1 100ml.bag @ 100 mls/hr IVPB Q8HR [facility] Rx#:[id number] Oral 1130 236 Other: Voiding Method Toilet # Voids 4 1 # Bowel Movements 3 1 - Exam - Constitutional General appearance: average body habitus, disheveled, morbidly obese - EENT Eyes: PERRLA Ears: bilateral: normal - Neck Carotids: bilateral: upstroke normal - Respiratory Respiratory: bilateral: CTA - Cardiovascular Rhythm: regular Heart sounds: normal: S1, S2 - Gastrointestinal General gastrointestinal: distended Localized gastrointestinal: tender: diffuse - Integumentary Integumentary: normal turgor - Neurologic Neurologic: CNII-XII intact - Musculoskeletal Musculoskeletal: gait normal, generalized weakness, strength equal bilaterally - Psychiatric Psychiatric: A&O x's 3, appropriate affect, intact judgment & insight - Labs CBC & Chem 7: 10/19/20 09:49 10/19/20 09:49 Labs: Abnormal Lab Results - Last 24 Hours (Table) 10/21/20 10/21/20 10/21/20 Range/Units 11:38 17:06 20:26 POC Glucose (mg/dL) 206 H 215 H 290 H (75-99) mg/dL 10/21/20 10/22/20 Range/Units 22:56 07:06 POC Glucose (mg/dL) 183 H 151 H (75-99) mg/dL Assessment and Plan Assessment: Acute diverticulitis Hypertension hypertensive cardiovascular disease Dyslipidemia Morbid obesity Type 2 diabetes mellitus Plan: Gentle rehydration Broad-spectrum antibiotics Resume home medications Sliding scale insulin Bronchodilator as needed Other recommendations pending plan of care as per clinical response of the patient Time with Patient: Greater than 30
[2020-10-22 11:44] LABS: Glucose,Whole Blood 185 mg/dL (75-99)
[2020-10-22] MEDS: FUROSEMIDE 40 MG TAB PO SCH (12:39)
--- NOTE | 2020-10-22 13:05 | P.PN ---
Progress Note - Text Progress Note Date: 10/22/20 Patient has complaints of abdominal pain. His main left lower quadrant. On exam her vital signs appear stable. Abdomen soft there is some mild tenderness. Resolving diverticula is. Patient we'll likely discharge home tomorrow.
[2020-10-22 16:45] LABS: Glucose,Whole Blood 246 mg/dL (75-99)
[2020-10-22 19:59] LABS: Glucose,Whole Blood 193 mg/dL (75-99)
[2020-10-23] MEDS: traMADol 50 MG TAB PO PRN ×2 (03:16→17:26)
[2020-10-23] MEDS: LEVOTHYROXINE 100 MCG TAB PO SCH (05:36)
[2020-10-23 07:17] LABS: Glucose,Whole Blood 150 mg/dL (75-99)
[2020-10-23] MEDS: SYMBICORT 80-4.5 MCG INHALER INHALATION SCH ×2 (07:28→19:41)
[2020-10-23] MEDS: INSULIN ASPART (NovoLOG) 100 UNIT/ML VIAL SQ SCH ×4 (07:45→21:50)
[2020-10-23] MEDS: HEPARIN SODIUM,PORCINE 5,000 UNIT/ML 1 ML VIAL SQ SCH ×2 (07:46→21:51)
[2020-10-23] MEDS: PANTOPRAZOLE 40 MG TABLET PO SCH (07:46)
[2020-10-23] MEDS: LEVOFLOXACIN 250 MG TAB PO SCH (07:46)
[2020-10-23] MEDS: LOSARTAN 50 MG TAB PO SCH (07:47)
[2020-10-23] MEDS: PATIENT'S OWN (Rosuvastatin 10 MG Tablet) PO SCH (07:47)
[2020-10-23] MEDS: ASCORBIC ACID 500 MG TAB PO SCH (07:47)
[2020-10-23] MEDS: ZINC SULFATE 220 MG CAP PO SCH (07:47)
[2020-10-23] MEDS: polyethylene glycoL 3350 17 GM POWD.PACK PO SCH (07:47)
[2020-10-23] MEDS: metroNIDAZOLE 500 MG TAB PO SCH ×3 (07:47→23:08)
[2020-10-23 11:50] LABS: Glucose,Whole Blood 241 mg/dL (75-99)
--- NOTE | 2020-10-23 12:22 | P.PN ---
Subjective Progress Note Date: 10/23/20 Principal diagnosis: Diverticulitis Patient says her pain is gradually improving. She has had 3 loose stools yesterday. 1 bowel movement today. Tolerating diet. Does not feel comfortable going home today. Would like to be discharged tomorrow. She is afebrile. Objective - Vital Signs Vital signs: Vital Signs Temp 97.8 F 10/23/20 08:00 Pulse 83 10/23/20 08:00 Resp 16 10/23/20 08:00 BP 115/63 10/23/20 08:00 Pulse Ox 93 L 10/23/20 08:00 Intake & Output 10/22/20 10/23/20 10/23/20 18:59 06:59 18:59 Intake Total 236 236 Balance 236 236 Intake: Oral 236 236 Other: Voiding Method Toilet # Voids 1 1 # Bowel Movements 1 - Exam Abdomen: Soft, obese, minimal lower abdominal tenderness - Labs CBC & Chem 7: 10/19/20 09:49 10/19/20 09:49 Labs: Abnormal Lab Results - Last 24 Hours (Table) 10/22/20 10/22/20 10/23/20 Range/Units 16:44 19:58 07:16 POC Glucose (mg/dL) 246 H 193 H 150 H (75-99) mg/dL 10/23/20 Range/Units 11:49 POC Glucose (mg/dL) 241 H (75-99) mg/dL Assessment and Plan (1) Diverticulitis Narrative/Plan: Patient clinically improving. Continue diet. Continue antibiotics. Probable discharge tomorrow. Current Visit: Yes Status: Acute Code(s): K57.92 - DVTRCLI OF INTEST, PART UNSP, W/O PERF OR ABSCESS W/O BLEED SNOMED Code(s): 858265963
[2020-10-23] MEDS: FUROSEMIDE 40 MG TAB PO SCH (12:31)
--- NOTE | 2020-10-23 16:08 | P.PN ---
Subjective Progress Note Date: 10/23/20 Principal diagnosis: Acute diverticulitis Hypertension hypertensive cardiovascular disease Dyslipidemia Morbid obesity Type 2 diabetes mellitus 10/23/2020 doing well no other [place] complains, and is still present but severity has improved, patient is denying tolerating diet, appears that patient can be discharged home likely tomorrow 10/22/2020, patient seen eval examined during the rounds, tolerating diet fairly well, noted patient is on 2 L oxygen recommend to check room air pulse ox more than 90% will DC the oxygen prescription of the antibiotics in chart 10/21/2020, patient seen and evaluated examined prescription entered into the computer for outpatient antibiotics stable from medical standpoint for discharge 10/20/2020, appetite continued to improve, tolerating by mouth well oxygenation is stable remains afebrile, patient underwent CT of the abdominal and pelvis, we will diverticulitis is a free air 10/19/2020, patient has been tolerating diet fairly well no GI symptoms are seen, patient remains on antibiotics, remains afebrile, oxygen saturation O2 96%, 10/18/2020, patient seen eval examined during the rounds labs reviewed medications reviewed, respiratory status remains stable tolerating by mouth well, patient remains on antibiotics and supportive care, 10/17/2020, abdominal pain is improved, denies any chest pain, patient is being given clear liquid diet gently rehydrated on antibiotics, continue supportive care from medical standpoint can be discharged on oral antibiotics like Cipro and Flagyl This is a pleasant 85-year-old female with history of diverticulosis diabetes mellitus COPD dyslipidemia hypertension hypertensive cardiovascular disease, she is been having lower abdominal pain for last 2 week came into the hospital due t o intermittent pain and persistent however she denies any fever and denies any diarrhea, she has ongoing constipation as well, she has been started on IV antibiotics and computed tomography scan of the abdominal and pelvis revealed diverticulitis without any abscess formation, Objective - Vital Signs Vital signs: Vital Signs Temp 97.6 F 10/23/20 14:00 Pulse 88 10/23/20 14:00 Resp 16 10/23/20 14:00 BP 107/63 10/23/20 14:00 Pulse Ox 94 L 10/23/20 14:00 Intake & Output 10/22/20 10/23/20 10/23/20 18:59 06:59 18:59 Intake Total 236 472 Balance 236 472 Intake: Oral 236 472 Other: Voiding Method Toilet # Voids 1 1 # Bowel Movements 1 - Exam - Constitutional General appearance: average body habitus, disheveled, morbidly obese - EENT Eyes: PERRLA Ears: bilateral: normal - Neck Carotids: bilateral: upstroke normal - Respiratory Respiratory: bilateral: CTA - Cardiovascular Rhythm: regular Heart sounds: normal: S1, S2 - Gastrointestinal General gastrointestinal: distended Localized gastrointestinal: tender: diffuse - Integumentary Integumentary: normal turgor - Neurologic Neurologic: CNII-XII intact - Musculoskeletal Musculoskeletal: gait normal, generalized weakness, strength equal bilaterally - Psychiatric Psychiatric: A&O x's 3, appropriate affect, intact judgment & insight - Labs CBC & Chem 7: 10/19/20 09:49 10/19/20 09:49 Labs: Abnormal Lab Results - Last 24 Hours (Table) 10/22/20 10/22/20 10/23/20 Range/Units 16:44 19:58 07:16 POC Glucose (mg/dL) 246 H 193 H 150 H (75-99) mg/dL 10/23/20 Range/Units 11:49 POC Glucose (mg/dL) 241 H (75-99) mg/dL Assessment and Plan Assessment: Acute diverticulitis Hypertension hypertensive cardiovascular disease Dyslipidemia Morbid obesity Type 2 diabetes mellitus Plan: Gentle rehydration Broad-spectrum antibiotics Resume home medications Sliding scale insulin Bronchodilator as needed Other recommendations pending plan of care as per clinical response of the patient Time with Patient: Greater than 30
[2020-10-23 17:02] LABS: Glucose,Whole Blood 173 mg/dL (75-99)
[2020-10-23 20:05] LABS: Glucose,Whole Blood 204 mg/dL (75-99)
[2020-10-24] MEDS: traMADol 50 MG TAB PO PRN ×3 (02:01→21:33)
[2020-10-24] MEDS: LEVOTHYROXINE 100 MCG TAB PO SCH (06:03)
[2020-10-24 06:25] LABS: Basophils # (A) 0.2 k/uL (0-0.2); Basophils % (A) 2 %; Eosinophils # (A) 0.1 k/uL (0-0.7); Eosinophils % (A) 1 %; HCT 36.4 % (34.0-46.0); HGB 11.6 gm/dL (11.4-16.0); Hypochromasia Slight; Lymphocytes # (A) 1.8 k/uL (1.0-4.8); Lymphocytes % (A) 17 %; MCH 28.9 pg (25.0-35.0); MCV 90.4 fL (80.0-100.0); Mean Platelet Volume 7.7; Monocytes # (A) 0.8 k/uL (0-1.0); Monocytes % (A) 7 %; Neutrophils # (A) 7.5 k/uL (1.3-7.7); Neutrophils % (A) 70 %; Platelet Count 368 k/uL (150-450); RBC 4.03 m/uL (3.80-5.40); RDW 14.4 % (11.5-15.5); WBC 10.7 k/uL (3.8-10.6)
[2020-10-24 06:41] LABS: Glucose,Whole Blood 137 mg/dL (75-99)
[2020-10-24] MEDS: HEPARIN SODIUM,PORCINE 5,000 UNIT/ML 1 ML VIAL SQ SCH ×2 (07:36→20:42)
[2020-10-24] MEDS: ZINC SULFATE 220 MG CAP PO SCH (07:36)
[2020-10-24] MEDS: ASCORBIC ACID 500 MG TAB PO SCH (07:36)
[2020-10-24] MEDS: PANTOPRAZOLE 40 MG TABLET PO SCH (07:36)
[2020-10-24] MEDS: LOSARTAN 50 MG TAB PO SCH (07:36)
[2020-10-24] MEDS: PATIENT'S OWN (Rosuvastatin 10 MG Tablet) PO SCH (07:36)
[2020-10-24] MEDS: INSULIN ASPART (NovoLOG) 100 UNIT/ML VIAL SQ SCH ×4 (07:36→20:43)
[2020-10-24] MEDS: metroNIDAZOLE 500 MG TAB PO SCH ×3 (07:37→20:42)
[2020-10-24] MEDS: polyethylene glycoL 3350 17 GM POWD.PACK PO SCH (07:37)
[2020-10-24] MEDS: SYMBICORT 80-4.5 MCG INHALER INHALATION SCH ×2 (08:19→19:53)
--- NOTE | 2020-10-24 09:23 | P.PN ---
Subjective Progress Note Date: 10/24/20 Principal diagnosis: Diverticulitis Patient complaining of increased pain left lower quadrant today. She did have a bowel movement earlier today. White blood cell count is normal. Objective - Vital Signs Vital signs: Vital Signs Temp 97.9 F 10/24/20 08:00 Pulse 96 10/24/20 08:00 Resp 16 10/24/20 08:00 BP 145/88 10/24/20 08:00 Pulse Ox 96 10/24/20 08:00 Intake & Output 10/23/20 10/24/20 10/24/20 18:59 06:59 18:59 Intake Total 708 480 Balance 708 480 Intake: Oral 708 480 Other: Voiding Method Toilet # Voids 1 1 - Exam Abdomen: Soft, nondistended, mild left lower quadrant tenderness - Labs CBC & Chem 7: 10/24/20 05:38 10/19/20 09:49 Labs: Abnormal Lab Results - Last 24 Hours (Table) 10/23/20 10/23/20 10/23/20 Range/Units 11:49 17:00 20:04 WBC (3.8-10.6) k/uL POC Glucose (mg/dL) 241 H 173 H 204 H (75-99) mg/dL 10/24/20 10/24/20 Range/Units 05:38 06:39 WBC 10.7 H (3.8-10.6) k/uL POC Glucose (mg/dL) 137 H (75-99) mg/dL Assessment and Plan (1) Diverticulitis Narrative/Plan: Today the patient is having increased discomfort. White blood cell count remains normal today. Last CAT scan 10/20. We'll observe tonight. Hopefully discharge tomorrow. Current Visit: Yes Status: Acute Code(s): K57.92 - DVTRCLI OF INTEST, PART UNSP, W/O PERF OR ABSCESS W/O BLEED SNOMED Code(s): 367185589
[2020-10-24] MEDS: FUROSEMIDE 40 MG TAB PO SCH (12:43)
[2020-10-24] MEDS: LEVOFLOXACIN 250 MG TAB PO SCH (12:43)
[2020-10-24 12:49] LABS: Glucose,Whole Blood 205 mg/dL (75-99)
[2020-10-24 16:57] LABS: Glucose,Whole Blood 241 mg/dL (75-99)
[2020-10-24 20:42] LABS: Glucose,Whole Blood 129 mg/dL (75-99)
[2020-10-25] MEDS: LEVOTHYROXINE 100 MCG TAB PO SCH (04:44)
[2020-10-25] MEDS: traMADol 50 MG TAB PO PRN ×3 (04:45→21:31)
[2020-10-25 07:07] LABS: Glucose,Whole Blood 135 mg/dL (75-99)
[2020-10-25] MEDS: PATIENT'S OWN (Rosuvastatin 10 MG Tablet) PO SCH (07:41)
[2020-10-25] MEDS: LOSARTAN 50 MG TAB PO SCH (07:45)
[2020-10-25] MEDS: ZINC SULFATE 220 MG CAP PO SCH (07:45)
[2020-10-25] MEDS: ASCORBIC ACID 500 MG TAB PO SCH (07:45)
[2020-10-25] MEDS: HEPARIN SODIUM,PORCINE 5,000 UNIT/ML 1 ML VIAL SQ SCH ×2 (07:46→21:30)
[2020-10-25] MEDS: PANTOPRAZOLE 40 MG TABLET PO SCH (07:46)
[2020-10-25] MEDS: polyethylene glycoL 3350 17 GM POWD.PACK PO SCH (07:46)
[2020-10-25] MEDS: INSULIN ASPART (NovoLOG) 100 UNIT/ML VIAL SQ SCH ×4 (07:46→21:31)
[2020-10-25] MEDS: metroNIDAZOLE 500 MG TAB PO SCH ×3 (07:46→21:31)
[2020-10-25] MEDS: SYMBICORT 80-4.5 MCG INHALER INHALATION SCH ×2 (08:28→20:06)
--- NOTE | 2020-10-25 10:14 | P.PN ---
Subjective Progress Note Date: 10/25/20 Principal diagnosis: Diverticulitis Patient complaining of pain again today. Says her pain was better throughout the day yesterday but got worse again this morning. She is asking to go to a liquid diet. She is afebrile. No labs from today. Objective - Vital Signs Vital signs: Vital Signs Temp 97.8 F 10/25/20 07:50 Pulse 84 10/25/20 07:50 Resp 17 10/25/20 07:50 BP 98/62 10/25/20 07:50 Pulse Ox 90 L 10/25/20 07:50 Intake & Output 10/24/20 10/25/20 10/25/20 18:59 06:59 18:59 Other: Voiding Method Toilet Toilet # Voids 1 1 # Bowel Movements 1 - Exam Abdomen: Soft, nondistended, mild left-sided tenderness - Labs CBC & Chem 7: 10/24/20 05:38 10/19/20 09:49 Labs: Abnormal Lab Results - Last 24 Hours (Table) 10/24/20 10/24/20 10/24/20 Range/Units 12:47 16:49 20:38 POC Glucose (mg/dL) 205 H 241 H 129 H (75-99) mg/dL 10/25/20 Range/Units 07:06 POC Glucose (mg/dL) 135 H (75-99) mg/dL Assessment and Plan (1) Diverticulitis Narrative/Plan: Continue antibiotics. We'll decrease diet to full liquids for now. Recheck CBC tomorrow. If pain persists we'll repeat CAT scan. Current Visit: Yes Status: Acute Code(s): K57.92 - DVTRCLI OF INTEST, PART UNSP, W/O PERF OR ABSCESS W/O BLEED SNOMED Code(s): 488598580
[2020-10-25 11:51] LABS: Glucose,Whole Blood 169 mg/dL (75-99)
[2020-10-25] MEDS: LEVOFLOXACIN 250 MG TAB PO SCH (14:37)
[2020-10-25] MEDS: FUROSEMIDE 40 MG TAB PO SCH (14:37)
[2020-10-25 16:37] LABS: Glucose,Whole Blood 193 mg/dL (75-99)
[2020-10-25 20:40] LABS: Glucose,Whole Blood 196 mg/dL (75-99)
[2020-10-26] MEDS: ACETAMINOPHEN TAB 325 MG TAB PO PRN (02:08)
[2020-10-26] MEDS: LEVOTHYROXINE 100 MCG TAB PO SCH (05:42)
[2020-10-26 06:53] LABS: Glucose,Whole Blood 146 mg/dL (75-99)
[2020-10-26 06:56] LABS: Basophils # (A) 0.1 k/uL (0-0.2); Basophils % (A) 1 %; Eosinophils # (A) 0.2 k/uL (0-0.7); Eosinophils % (A) 2 %; HCT 38.9 % (34.0-46.0); Hypochromasia Moderate; Lymphocytes # (A) 2.3 k/uL (1.0-4.8); Lymphocytes % (A) 18 %; MCH 28.5 pg (25.0-35.0); MCHC 30.7 g/dL (31.0-37.0); MCV 92.7 fL (80.0-100.0); Mean Platelet Volume 8.2; Monocytes % (A) 8 %; Neutrophils # (A) 8.6 k/uL (1.3-7.7); Neutrophils % (A) 69 %; Platelet Count 387 k/uL (150-450); RDW 14.5 % (11.5-15.5); WBC 12.4 k/uL (3.8-10.6)
[2020-10-26] MEDS: SYMBICORT 80-4.5 MCG INHALER INHALATION SCH ×2 (08:12→20:05)
[2020-10-26] MEDS: INSULIN ASPART (NovoLOG) 100 UNIT/ML VIAL SQ SCH ×4 (08:27→20:39)
[2020-10-26] MEDS: PANTOPRAZOLE 40 MG TABLET PO SCH (08:27)
[2020-10-26] MEDS: HEPARIN SODIUM,PORCINE 5,000 UNIT/ML 1 ML VIAL SQ SCH ×2 (08:27→20:39)
[2020-10-26] MEDS: metroNIDAZOLE 500 MG TAB PO SCH ×3 (08:27→20:39)
[2020-10-26] MEDS: polyethylene glycoL 3350 17 GM POWD.PACK PO SCH (08:27)
[2020-10-26] MEDS: LOSARTAN 50 MG TAB PO SCH (08:27)
[2020-10-26] MEDS: ASCORBIC ACID 500 MG TAB PO SCH (08:27)
[2020-10-26] MEDS: PATIENT'S OWN (Rosuvastatin 10 MG Tablet) PO SCH (08:28)
[2020-10-26] MEDS: ZINC SULFATE 220 MG CAP PO SCH (08:29)
[2020-10-26] MEDS: traMADol 50 MG TAB PO PRN (08:43)
[2020-10-26] MEDS ORDERED: IOPAMIDOL CONTRAST (ORAL USE) VIAL PO PRN (08:46)
--- NOTE | 2020-10-26 08:48 | P.PN ---
Subjective Progress Note Date: 10/26/20 Principal diagnosis: Diverticulitis Patient says her pain is bad again today. Involving the lower abdomen with pain extending towards the rectum and vagina. She is having bowel function. She is tolerating her diet. White blood cell count 12. Objective - Vital Signs Vital signs: Vital Signs Temp 99.4 F 10/26/20 07:47 Pulse 108 H 10/26/20 07:47 Resp 17 10/26/20 07:47 BP 124/75 10/26/20 07:47 Pulse Ox 88 L 10/26/20 07:47 Intake & Output 10/25/20 10/26/20 10/26/20 18:59 06:59 18:59 Other: Voiding Method Toilet Toilet # Voids 1 2 - Exam Abdomen: Soft, nondistended, mild lower abdominal tenderness - Labs CBC & Chem 7: 10/26/20 05:43 10/19/20 09:49 Labs: Abnormal Lab Results - Last 24 Hours (Table) 10/25/20 10/25/20 10/25/20 Range/Units 11:49 16:36 20:38 WBC (3.8-10.6) k/uL MCHC (31.0-37.0) g/dL Neutrophils # (1.3-7.7) k/uL POC Glucose (mg/dL) 169 H 193 H 196 H (75-99) mg/dL 10/26/20 10/26/20 Range/Units 05:43 06:52 WBC 12.4 H (3.8-10.6) k/uL MCHC 30.7 L (31.0-37.0) g/dL Neutrophils # 8.6 H (1.3-7.7) k/uL POC Glucose (mg/dL) 146 H (75-99) mg/dL Assessment and Plan (1) Diverticulitis Narrative/Plan: Patient still having abdominal pain. Seems to be actually worse over the last 72 hours. We'll repeat CAT scan again to evaluate for worsening diverticulitis. Continue antibiotics. Current Visit: Yes Status: Acute Code(s): K57.92 - DVTRCLI OF INTEST, PART UNSP, W/O PERF OR ABSCESS W/O BLEED SNOMED Code(s): 394110393
[2020-10-26 09:35] LABS: Basophils # (A) 0.4 k/uL (0-0.2); Basophils % (A) 3 %; Eosinophils # (A) 0.2 k/uL (0-0.7); Eosinophils % (A) 2 %; HCT 39.5 % (34.0-46.0); HGB 12.4 gm/dL (11.4-16.0); Hypochromasia Slight; Lymphocytes # (A) 2.5 k/uL (1.0-4.8); Lymphocytes % (A) 18 %; MCH 28.8 pg (25.0-35.0); MCHC 31.4 g/dL (31.0-37.0); MCV 91.7 fL (80.0-100.0); Mean Platelet Volume 7.6; Monocytes # (A) 0.8 k/uL (0-1.0); Monocytes % (A) 6 %; Neutrophils # (A) 9.7 k/uL (1.3-7.7); Neutrophils % (A) 69 %; Platelet Count 380 k/uL (150-450); RBC 4.31 m/uL (3.80-5.40); RDW 14.5 % (11.5-15.5)
[2020-10-26 09:43] LABS: Potassium 4.6 mmol/L (3.5-5.1)
[2020-10-26 09:44] LABS: African American GFR (CKD) 49 (>60 ml/min/1.73 sqM); Anion Gap 3 mmol/L; Blood Urea Nitrogen 18 mg/dL (7-17); Calcium 8.6 mg/dL (8.4-10.2); Carbon Dioxide 33 mmol/L (22-30); Chloride 96 mmol/L (98-107); Glucose 196 mg/dL (74-99); Non-African American GFR(CKD) 43 (>60 ml/min/1.73 sqM); Sodium 132 mmol/L (137-145)
[2020-10-26 11:34] LABS: Glucose,Whole Blood 214 mg/dL (75-99)
--- NOTE | 2020-10-26 12:52 | CT ---
EXAMINATION TYPE: CT abdomen pelvis w con DATE OF EXAM: 10/26/2020 HISTORY: Follow up diverticulitis CT DLP: 2574.8mGycm Automated Exposure Control for Dose Reduction was Utilized. CONTRAST: CT scan of the abdomen and pelvis is performed with IV Contrast, patient injected with 100 ml mL of I sovue 300. COMPARISON: CT abdomen and pelvis 6 days ago FINDINGS: LUNG BASES: Stable tiny right pleural effusion. LIVER/GB: Gallbladder not seen and presumed surgically absent. PANCREAS: No significant abnormality is seen. SPLEEN: No significant abnormality is seen. ADRENALS: No significant abnormality is seen. KIDNEYS: Symmetric cortical medullary uptake and excretion without hydronephrosis seen bilaterally. BOWEL: Oral contrast reaches level of rectum. No suspicious small or large bowel dilatation. Stomach poorly distended and thus suboptimally evaluated . Diverticula in the left and sigmoid colon. No CT e vidence for acute diverticulitis currently. Resolved mild ill-defined fluid and fat stranding in the proximal sigmoid colon. UTERUS/ADNEXA: Anteverted uterus redemonstrated. LYMPH NODES: No greater than 1cm abdominal or pelvic lymph nodes are appreciated. OSSEOUS STRUCTURES: Transitional-type vertebra at lumbosacral junction. OTHER: No significant additional abnormality is seen. IMPRESSION: Improved or resolved mild left-sided proximal sigmoid acute diverticulitis. Correlate cli nically. No new acute findings are evident.
[2020-10-26] MEDS: LEVOFLOXACIN 250 MG TAB PO SCH (13:13)
[2020-10-26] MEDS: FUROSEMIDE 40 MG TAB PO SCH (13:13)
[2020-10-26 16:57] LABS: Glucose,Whole Blood 179 mg/dL (75-99)
[2020-10-26 20:17] LABS: Glucose,Whole Blood 196 mg/dL (75-99)
[2020-10-27] MEDS: traMADol 50 MG TAB PO PRN ×2 (01:23→23:20)
[2020-10-27] MEDS: LEVOTHYROXINE 100 MCG TAB PO SCH (04:12)
[2020-10-27 06:43] LABS: Glucose,Whole Blood 155 mg/dL (75-99)
[2020-10-27] MEDS: SYMBICORT 80-4.5 MCG INHALER INHALATION SCH ×2 (07:20→19:01)
[2020-10-27] MEDS: metroNIDAZOLE 500 MG TAB PO SCH ×3 (08:19→20:19)
[2020-10-27] MEDS: LOSARTAN 50 MG TAB PO SCH (08:20)
[2020-10-27] MEDS: ASCORBIC ACID 500 MG TAB PO SCH (08:20)
[2020-10-27] MEDS: ACETAMINOPHEN TAB 325 MG TAB PO PRN (08:20)
[2020-10-27] MEDS: INSULIN ASPART (NovoLOG) 100 UNIT/ML VIAL SQ SCH ×4 (08:20→20:19)
[2020-10-27] MEDS: PATIENT'S OWN (Rosuvastatin 10 MG Tablet) PO SCH (08:20)
[2020-10-27] MEDS: HEPARIN SODIUM,PORCINE 5,000 UNIT/ML 1 ML VIAL SQ SCH ×2 (08:20→20:19)
[2020-10-27] MEDS: PANTOPRAZOLE 40 MG TABLET PO SCH (08:20)
[2020-10-27] MEDS: polyethylene glycoL 3350 17 GM POWD.PACK PO SCH (08:20)
[2020-10-27] MEDS: ZINC SULFATE 220 MG CAP PO SCH (08:20)
--- NOTE | 2020-10-27 11:06 | P.PN ---
Subjective Progress Note Date: 10/27/20 Principal diagnosis: Diverticulitis Patient says her pain was once again bad in the middle of the night. Describes it as being in the lower abdomen. She is having bowel function. No nausea or vomiting. Tolerating full liquids. White blood cell count remains slightly elevated. Repeat CAT scan from yesterday shows resolution of diverticulitis. Patient denies rectal bleeding. No perianal discomfort. Objective - Vital Signs Vital signs: Vital Signs Temp 98.6 F 10/27/20 08:00 Pulse 102 H 10/27/20 08:00 Resp 17 10/27/20 08:00 BP 117/72 10/27/20 08:00 Pulse Ox 92 L 10/27/20 08:00 Intake & Output 10/26/20 10/27/20 10/27/20 18:59 06:59 18:59 Other: Voiding Method Toilet # Voids 1 2 # Bowel Movements 1 - Exam Abdomen: Soft, mild left lower abdominal tenderness, nondistended - Labs CBC & Chem 7: 10/26/20 09:15 10/26/20 09:15 Labs: Abnormal Lab Results - Last 24 Hours (Table) 10/26/20 10/26/20 10/26/20 Range/Units 11:33 16:56 20:16 POC Glucose (mg/dL) 214 H 179 H 196 H (75-99) mg/dL 10/27/20 Range/Units 06:41 POC Glucose (mg/dL) 155 H (75-99) mg/dL Assessment and Plan (1) Diverticulitis Narrative/Plan: Patient with ongoing discomfort. Etiology unclear. Continue antibiotics. Resume normal diet. Current Visit: Yes Status: Acute Code(s): K57.92 - DVTRCLI OF INTEST, PART UNSP, W/O PERF OR ABSCESS W/O BLEED SNOMED Code(s): 189158478
[2020-10-27 11:19] LABS: Glucose,Whole Blood 247 mg/dL (75-99)
[2020-10-27] MEDS: FUROSEMIDE 40 MG TAB PO SCH (12:50)
[2020-10-27] MEDS: LEVOFLOXACIN 250 MG TAB PO SCH (12:50)
[2020-10-27 16:51] LABS: Glucose,Whole Blood 225 mg/dL (75-99)
[2020-10-27 20:12] LABS: Glucose,Whole Blood 206 mg/dL (75-99)
[2020-10-28 04:54] VITALS: PULSE 90
[2020-10-28] MEDS: LEVOTHYROXINE 100 MCG TAB PO SCH (05:08)
[2020-10-28] MEDS: traMADol 50 MG TAB PO PRN (05:11)
[2020-10-28 07:00] LABS: Glucose,Whole Blood 171 mg/dL (75-99)
[2020-10-28] MEDS: LEVOFLOXACIN 250 MG TAB PO SCH (07:43)
[2020-10-28] MEDS: PANTOPRAZOLE 40 MG TABLET PO SCH (07:43)
[2020-10-28] MEDS: ZINC SULFATE 220 MG CAP PO SCH (07:43)
[2020-10-28] MEDS: polyethylene glycoL 3350 17 GM POWD.PACK PO SCH (07:43)
[2020-10-28] MEDS: metroNIDAZOLE 500 MG TAB PO SCH ×2 (07:43→15:18)
[2020-10-28] MEDS: ASCORBIC ACID 500 MG TAB PO SCH (07:43)
[2020-10-28] MEDS: LOSARTAN 50 MG TAB PO SCH (07:43)
[2020-10-28] MEDS: HEPARIN SODIUM,PORCINE 5,000 UNIT/ML 1 ML VIAL SQ SCH (07:43)
[2020-10-28] MEDS: INSULIN ASPART (NovoLOG) 100 UNIT/ML VIAL SQ SCH ×2 (07:43→11:57)
[2020-10-28 07:46] VITALS: BP 126/74; RESP 17; TEMP 98.6
[2020-10-28] MEDS: PATIENT'S OWN (Rosuvastatin 10 MG Tablet) PO SCH (07:49)
[2020-10-28 08:55] LABS: Basophils # (A) 0.3 k/uL (0-0.2); Basophils % (A) 2 %; Eosinophils # (A) 0.3 k/uL (0-0.7); Eosinophils % (A) 3 %; HCT 39.7 % (34.0-46.0); HGB 12.7 gm/dL (11.4-16.0); Hypochromasia Slight; Lymphocytes # (A) 1.9 k/uL (1.0-4.8); Lymphocytes % (A) 16 %; MCH 29.2 pg (25.0-35.0); MCHC 32.1 g/dL (31.0-37.0); MCV 91.1 fL (80.0-100.0); Monocytes # (A) 0.6 k/uL (0-1.0); Monocytes % (A) 5 %; Neutrophils # (A) 8.8 k/uL (1.3-7.7); Neutrophils % (A) 73 %; Platelet Count 385 k/uL (150-450); RBC 4.36 m/uL (3.80-5.40); RDW 14.5 % (11.5-15.5); WBC 12.1 k/uL (3.8-10.6)
[2020-10-28] MEDS: SYMBICORT 80-4.5 MCG INHALER INHALATION SCH (09:00)
[2020-10-28 09:06] LABS: African American GFR (CKD) 61 (>60 ml/min/1.73 sqM); Anion Gap 4 mmol/L; Blood Urea Nitrogen 15 mg/dL (7-17); Calcium 8.8 mg/dL (8.4-10.2); Carbon Dioxide 34 mmol/L (22-30); Chloride 97 mmol/L (98-107); Glucose 147 mg/dL (74-99); Non-African American GFR(CKD) 53 (>60 ml/min/1.73 sqM); Potassium 4.6 mmol/L (3.5-5.1); Sodium 135 mmol/L (137-145)
--- NOTE | 2020-10-28 10:18 | P.PN ---
Subjective Progress Note Date: 10/28/20 CHIEF COMPLAINT: Abdominal pain HISTORY OF PRESENT ILLNESS: Patient is being followed for an acute divert iculitis. PHYSI her left sided abdominal pain has resolved. Her repeat computed tomography scan had shown resolution of the diverticulitis. Patient is still complaining of rectal pain. She does report burning with urination. She did have a loose bowel movement. She denies any nausea or vomiting. Denies any blood in her stools. Her last colonoscopy was about 10 years ago. Afebrile. WBC is trended down from 14-12.1 she is tolerating low fiber diet PHYSICAL EXAM: VITAL SIGNS: Reviewed. GENERAL: Well-developed in no acute distress. HEENT: No sclera icterus. Extraocular movements grossly intact. Moist buccal mucosa. Head is atraumatic, normocephalic. ABDOMEN: Soft. obese. Nondistended. Nontender. NEUROLOGIC: Alert and oriented. Cranial nerves II through XII grossly intact. ASSESSMENT: 1. Acute diverticulitis within the sigmoid colon 2. Constipation PLAN: -Burning with urination we'll check urinalysis -Continue low fiber diet -Continue antibiotics -No plans for surgical intervention at this time -Consult physical therapy -GI prophylaxis Protonix and DVT prophylaxis subcu heparin Physician Balance Wheel Arm Burnisher note has been reviewed by physician. Signing provider agrees with the documented findings, assessment, and plan of care. Objective - Vital Signs Vital signs: Vital Signs Temp 98.6 F 10/28/20 07:45 Pulse 90 10/28/20 07:48 Resp 17 10/28/20 07:48 BP 126/74 10/28/20 07:45 Pulse Ox 93 L 10/28/20 09:03 Intake & Output 10/27/20 10/28/20 10/28/20 18:59 06:59 18:59 Intake Total 450 Balance 450 Intake: Oral 450 Other: Voiding Method Toilet Toilet # Voids 2 2 # Bowel Movements 1 - Labs CBC & Chem 7: 10/28/20 08:33 10/28/20 08:33 Labs: Abnormal Lab Results - Last 24 Hours (Table) 10/27/20 10/27/20 10/27/20 Range/Units 11:18 16:49 20:10 WBC (3.8-10.6) k/uL Neutrophils # (1.3-7.7) k/uL Basophils # (0-0.2) k/uL Sodium (137-145) mmol/L Chloride (98-107) mmol/L Carbon Dioxide (22-30) mmol/L Glucose (74-99) mg/dL POC Glucose (mg/dL) 247 H 225 H 206 H (75-99) mg/dL 10/28/20 10/28/20 10/28/20 Range/Units 06:59 08:33 08:33 WBC 12.1 H (3.8-10.6) k/uL Neutrophils # 8.8 H (1.3-7.7) k/uL Basophils # 0.3 H (0-0.2) k/uL Sodium 135 L (137-145) mmol/L Chloride 97 L (98-107) mmol/L Carbon Dioxide 34 H (22-30) mmol/L Glucose 147 H (74-99) mg/dL POC Glucose (mg/dL) 171 H (75-99) mg/dL
[2020-10-28 11:51] LABS: Glucose,Whole Blood 227 mg/dL (75-99)
[2020-10-28] MEDS: FUROSEMIDE 40 MG TAB PO SCH (11:57)
--- NOTE | 2020-10-28 13:06 | P.DS ---
Providers Date of admission: 10/15/20 07:39 Expected date of discharge: 10/28/20 Attending physician: Eliud Tripathi Consults: 10/14/20 16:18 Consult Physician Urgent Consulting Provider: Eliud Tripathi Consult Reason/Comments: acute diverticulitis Do you want consulting provider notified?: Yes 10/15/20 11:02 Consult Physician Routine Consulting Provider: Roney Smith Consult Reason/Comments: medical management Do you want consulting provider notified?: Yes 10/16/20 09:26 Consult Physician Routine Consulting Provider: Johnson Dozier Consult Reason/Comments: medical management for Dr Smith Do you want consulting provider notified?: Yes Primary care physician: Roney Smith Hospital Course: Discharge diagnosis 1. Acute diverticulitis within the sigmoid colon 2. Constipation Hospital course This 85-year-old female who presented to the emergency room with complaints of left lower quadrant abdominal pain and rectal pain for about 2 weeks. She had been having low-grade fevers. She has prior history of diverticulitis. She did computed tomography scan of the abdomen and pelvis showing evidence of diverticulitis no added of abscess. Patient was started on IV Levaquin and Flagyl. No surgical intervention was needed. She's tolerated advancement of diet. Her left lower quadrant abdominal pain resolved. She is having bowel movements. She is ambulating. She is tolerating diet. She's afebrile. Her white count is trending down. Patient is stable for discharge home. She will be discharged with 7 more days of Levaquin and Flagyl. Patient is stable for discharge. Please refer to chart for any further details. Physician Rock Wool Insulator note has been reviewed by physician. Signing provider agrees with the documented findings, assessment, and plan of care. Patient Condition at Discharge: Stable Plan - Discharge Summary New Discharge Prescriptions: New metroNIDAZOLE [Flagyl] 500 mg PO Q8HR 7 Days #21 tab Levofloxacin [Levaquin] 250 mg PO DAILY 1 Days #7 tab Continue Rosuvastatin [Crestor] 10 mg PO DAILY Losartan [Cozaar] 50 mg PO DAILY Levothyroxine Sodium [Synthroid] 100 mcg PO DAILY glipiZIDE [Glucotrol] 5 mg PO DAILY Nystatin 100,000Unit/gm Cream [Mycostatin Cream] 1 applic TOPICAL BID PRN PRN Reason: fungal infection Mometasone/Formoterol [Dulera 100 Mcg-5 Mcg Inhaler] 2 puff PO RT-BID Furosemide [Lasix] 40 mg PO DAILY@1300 Pioglitazone [Actos] 15 mg PO DAILY Zinc Sulfate [Orazinc] 220 mg PO DAILY #30 cap guaiFENesin-DM 100-10MG/5ML [Robitussin DM] 10 ml PO Q8H PRN #100 ml PRN Reason: Cough Acetaminophen Tab [Tylenol] 650 mg PO Q6HR PRN #30 tab PRN Reason: Mild Pain Or Fever > 100.5 Albuterol Inhaler [Ventolin Hfa Inhaler] 2 puff INHALATION RT-Q4H PRN #1 puff PRN Reason: Wheezing, shortness of breath Ascorbic Acid [Vitamin C] 500 mg PO DAILY #30 tab Pantoprazole [Protonix] 40 mg PO DAILY Discharge Medication List Rosuvastatin [Crestor] 10 mg PO DAILY 09/17/14 [History] Losartan [Cozaar] 50 mg PO DAILY 11/21/15 [History] Levothyroxine Sodium [Synthroid] 100 mcg PO DAILY 11/22/15 [History] Furosemide [Lasix] 40 mg PO DAILY@1300 09/17/20 [History] Mometasone/Formoterol [Dulera 100 Mcg-5 Mcg Inhaler] 2 puff PO RT-BID 09/17/20 [History] Nystatin 100,000Unit/gm Cream [Mycostatin Cream] 1 applic TOPICAL BID PRN 09/17/20 [History] Pioglitazone [Actos] 15 mg PO DAILY 09/17/20 [History] glipiZIDE [Glucotrol] 5 mg PO DAILY 09/17/20 [History] Acetaminophen Tab [Tylenol] 650 mg PO Q6HR PRN #30 tab 09/21/20 [Rx] Albuterol Inhaler [Ventolin Hfa Inhaler] 2 puff INHALATION RT-Q4H PRN #1 puff 09/21/20 [Rx] Ascorbic Acid [Vitamin C] 500 mg PO DAILY #30 tab 09/21/20 [Rx] Zinc Sulfate [Orazinc] 220 mg PO DAILY #30 cap 09/21/20 [Rx] guaiFENesin-DM 100-10MG/5ML [Robitussin DM] 10 ml PO Q8H PRN #100 ml 09/21/20 [Rx] Pantoprazole [Protonix] 40 mg PO DAILY 10/14/20 [History] Levofloxacin [Levaquin] 250 mg PO DAILY 1 Days #7 tab 10/21/20 [Rx] metroNIDAZOLE [Flagyl] 500 mg PO Q8HR 7 Days #21 tab 10/21/20 [Rx] Follow up Appointment(s)/Referral(s): Roney Smith DO [Primary Care Provider] - 1-2 days Milagro Woodruff MD [STAFF PHYSICIAN] - 2 Weeks Eliud Tripathi MD [STAFF PHYSICIAN] - 1 Week Activity/Diet/Wound Care/Special Instructions: Diet diabetic and cardiac Activity as tolerated Discharge Disposition: HOME WITH HOME HEALTH SERVICES
--- NOTE | 2020-10-28 15:36 | P.PN ---
Subjective Progress Note Date: 10/24/20 Principal diagnosis: Acute diverticulitis Hypertension hypertensive cardiovascular disease Dyslipidemia Morbid obesity Type 2 diabetes mellitus 10/24/2020, still have intermittent abdominal pain, predominantly in left lower quadrant, she remains afebrile with stable hemodynamics oxygen saturation 96%, white cell count is within normal limits general surgery has been following the recommended for close monitoring and observation 10/23/2020 doing well no other [place] complains, and is still present but severity has improved, patient is denying tolerating diet, appears that patient can be discharged home likely tomorrow 10/22/2020, patient seen eval examined during the rounds, tolerating diet fairly well, noted patient is on 2 L oxygen recommend to check room air pulse ox more than 90% will DC the oxygen prescription of the antibiotics in chart 10/21/2020, patient seen and evaluated examined prescription entered into the computer for outpatient antibiotics stable from medical standpoint for discharge 10/20/2020, appetite continued to improve, tolerating by mouth well oxygenation is stable remains afebrile, patient underwent CT of the abdominal and pelvis, we will diverticulitis is a free air 10/19/2020, patient has been tolerating diet fairly well no GI symptoms are seen, patient remains on antibiotics, remains afebrile, oxygen saturation O2 96%, 10/18/2020, patient seen eval examined during the rounds labs reviewed medications reviewed, respiratory status remains stable tolerating by mouth well, patient remains on antibiotics and supportive care, 10/17/2020, abdominal pain is improved, denies any chest pain, patient is being given clear liquid diet gently rehydrated on antibiotics, continue supportive care from medical standpoint can be discharged on oral antibiotics like Cipro and Flagyl This is a pleasant 85-year-old female with history of diverticulosis diabetes mellitus COPD dyslipidemia hypertension hypertensive cardiovascular disease, she is been having lower abdominal pain for last 2 week came into the hospital due to intermittent pain and persistent however she denies any fever and denies any diarrhea, she has ongoing constipation as well, she has been started on IV antibiotics and computed tomography scan of the abdominal and pelvis revealed diverticulitis without any abscess formation, Objective - Vital Signs Vital signs: Vital Signs Temp 97.9 F 10/24/20 08:00 Pulse 96 10/24/20 08:00 Resp 16 10/24/20 08:00 BP 145/88 12/31/20 08:00 Pulse Ox 96 10/24/20 08:00 Intake & Output 10/23/20 10/24/20 10/24/20 18:59 06:59 18:59 Intake Total 708 480 Balance 708 480 Intake: Oral 708 480 Other: Voiding Method Toilet Toilet # Voids 1 1 - Exam - Constitutional General appearance: average body habitus, disheveled, morbidly obese - EENT Eyes: PERRLA Ears: bilateral: normal - Neck Carotids: bilateral: upstroke normal - Respiratory Respiratory: bilateral: CTA - Cardiovascular Rhythm: regular Heart sounds: normal: S1, S2 - Gastrointestinal General gastrointestinal: distended Localized gastrointestinal: tender: diffuse more so on the left lower quadrant - Integumentary Integumentary: normal turgor - Neurologic Neurologic: CNII-XII intact - Musculoskeletal Musculoskeletal: gait normal, generalized weakness, strength equal bilaterally - Psychiatric Psychiatric: A&O x's 3, appropriate affect, intact judgment & insight - Labs CBC & Chem 7: 10/28/20 08:33 10/28/20 08:33 Labs: Abnormal Lab Results - Last 24 Hours (Table) 10/23/20 10/23/20 10/24/20 Range/Units 17:00 20:04 05:38 WBC 10.7 H (3.8-10.6) k/uL POC Glucose (mg/dL) 173 H 204 H (75-99) mg/dL 10/24/20 10/24/20 Range/Units 06:39 12:47 WBC (3.8-10.6) k/uL POC Glucose (mg/dL) 137 H 205 H (75-99) mg/dL Assessment and Plan Assessment: Acute diverticulitis Hypertension hypertensive cardiovascular disease Dyslipidemia Morbid obesity Type 2 diabetes mellitus Plan: Gen. surgery following Gentle rehydration Broad-spectrum antibiotics Resume home medications Sliding scale insulin Bronchodilator as needed Other recommendations pending plan of care as per clinical response of the patient Time with Patient: Greater than 30
--- NOTE | 2020-10-28 15:38 | P.PN ---
Subjective Progress Note Date: 10/25/20 Principal diagnosis: Acute diverticulitis Hypertension hypertensive cardiovascular disease Dyslipidemia Morbid obesity Type 2 diabetes mellitus 10/25/2020, patient has been seen, intermittent pain is present not much improved, however patient is relatively better right now asking for liquid diet, hemodynamic status is remains stable, remains afebrile, 10/24/2020, still have intermittent abdominal pain, predominantly in left lower quadrant, she remains afebrile with stable hemodynamics oxygen saturation 96%, white cell count is within normal limits general surgery has been following the recommended for close monitoring and observation 10/23/2020 doing well no other [place] complains, and is still present but severity has improved, patient is denying tolerating diet, appears that patient can be discharged home likely tomorrow 10/22/2020, patient seen eval examined during the rounds, tolerating diet fairly well, noted patient is on 2 L oxygen recommend to check room air pulse ox more than 90% will DC the oxygen prescription of the antibiotics in chart 10/21/2020, patient seen and evaluated examined prescription entered into the computer for outpatient antibiotics stable from medical standpoint for discharge 10/20/2020, appetite continued to improve, tolerating by mouth well oxygenation is stable remains afebrile, patient underwent CT of the abdominal and pelvis, we will diverticulitis is a free air 10/19/2020, patient has been tolerating diet fairly well no GI symptoms are seen, patient remains on antibiotics, remains afebrile, oxygen saturation O2 96%, 10/18/2020, patient seen eval examined during the rounds labs reviewed medications reviewed, respiratory status remains stable tolerating by mouth well, patient remains on antibiotics and supportive care, 10/17/2020, abdominal pain is improved, denies any chest pain, patient is being given clear liquid diet gently rehydrated on antibiotics, continue supportive care from medical standpoint can be discharged on oral antibiotics like Cipro and Flagyl This is a pleasant 85-year-old female with history of diverticulosis diabetes mellitus COPD dyslipidemia hypertension hypertensive cardiovascular disease, she is been having lower abdominal pain for last 2 week came into the hospital due t o intermittent pain and persistent however she denies any fever and denies any diarrhea, she has ongoing constipation as well, she has been started on IV antibiotics and computed tomography scan of the abdominal and pelvis revealed diverticulitis without any abscess formation, Objective - Vital Signs Vital signs: Vital Signs Temp 98.2 F 01/01/21 14:00 Pulse 88 10/25/20 14:00 Resp 17 10/25/20 14:00 BP 109/65 10/25/20 14:00 Pulse Ox 90 L 10/25/20 14:00 Intake & Output 10/24/20 10/25/20 10/25/20 18:59 06:59 18:59 Other: Voiding Method Toilet Toilet # Voids 1 1 # Bowel Movements 1 - Exam - Constitutional General appearance: average body habitus, disheveled, morbidly obese - EENT Eyes: PERRLA Ears: bilateral: normal - Neck Carotids: bilateral: upstroke normal - Respiratory Respiratory: bilateral: CTA - Cardiovascular Rhythm: regular Heart sounds: normal: S1, S2 - Gastrointestinal General gastrointestinal: distended Localized gastrointestinal: tender: diffuse - Integumentary Integumentary: normal turgor - Neurologic Neurologic: CNII-XII intact - Musculoskeletal Musculoskeletal: gait normal, generalized weakness, strength equal bilaterally - Psychiatric Psychiatric: A&O x's 3, appropriate affect, intact judgment & insight - Labs CBC & Chem 7: 10/28/20 08:33 10/28/20 08:33 Labs: Abnormal Lab Results - Last 24 Hours (Table) 10/24/20 10/24/20 10/25/20 Range/Units 16:49 20:38 07:06 POC Glucose (mg/dL) 241 H 129 H 135 H (75-99) mg/dL 10/25/20 Range/Units 11:49 POC Glucose (mg/dL) 169 H (75-99) mg/dL Assessment and Plan Assessment: Acute diverticulitis Hypertension hypertensive cardiovascular disease Dyslipidemia Morbid obesity Type 2 diabetes mellitus Plan: Gentle rehydration Broad-spectrum antibiotics Resume home medications Sliding scale insulin Bronchodilator as needed Other recommendations pending plan of care as per clinical response of the patient Time with Patient: Greater than 30
--- NOTE | 2020-10-28 15:42 | P.PN ---
Subjective Progress Note Date: 10/26/20 Principal diagnosis: Acute diverticulitis Hypertension hypertensive cardiovascular disease Dyslipidemia Morbid obesity Type 2 diabetes mellitus 10/26/2020, patient seen eval examined during the rounds labs reviewed medications reviewed care plan discussed, pain has been occurring approximately, labs reviewed, hemodynamic status remains stable low-grade temperature has been seen WBCs 12,000, patient had a follow-up abdominal CT, revealed improving left- sided proximal sigmoid diverticulitis no new acute finding identified, patient has been reassured 10/25/2020, patient has been seen, intermittent pain is present not much improved, however patient is relatively better right now asking for liquid diet, hemodynamic status is remains stable, remains afebrile, 10/24/2020, still have intermittent abdominal pain, predominantly in left lower quadrant, she remains afebrile with stable hemodynamics oxygen saturation 96%, white cell count is within normal limits general surgery has been following the recommended for close monitoring and observation 10/23/2020 doing well no other [place] complains, and is still present but severity has improved, patient is denying tolerating diet, appears that patient can be discharged home likely tomorrow 10/22/2020, patient seen eval examined during the rounds, tolerating diet fairly well, noted patient is on 2 L oxygen recommend to check room air pulse ox more than 90% will DC the oxygen prescription of the antibiotics in chart 10/21/2020, patient seen and evaluated examined prescription entered into the computer for outpatient antibiotics stable from medical standpoint for discharge 10/20/2020, appetite continued to improve, tolerating by mouth well oxygenation is stable remains afebrile, patient underwent CT of the abdominal and pelvis, we will diverticulitis is a free air 10/19/2020, patient has been tolerating diet fairly well no GI symptoms are seen, patient remains on antibiotics, remains afebrile, oxygen saturation O2 96%, 10/18/2020, patient seen eval examined during the rounds labs reviewed medications reviewed, respiratory status remains stable tolerating by mouth well, patient remains on antibiotics and supportive care, 10/17/2020, abdominal pain is improved, denies any chest pain, patient is being given clear liquid diet gently rehydrated on antibiotics, continue supportive care from medical standpoint can be discharged on oral antibiotics like Cipro and Flagyl This is a pleasant 85-year-old female with history of diverticulosis diabetes mellitus COPD dyslipidemia hypertension hypertensive cardiovascular disease, she is been having lower abdominal pain for last 2 week came into the hospital due to intermittent pain and persistent however she denies any fever and denies any diarrhea, she has ongoing constipation as well, she has been started on IV antibiotics and computed tomography scan of the abdominal and pelvis revealed diverticulitis without any abscess formation, Objective - Vital Signs Vital signs: Vital Signs Temp 98.5 F 10/26/20 14:00 Pulse 87 10/26/20 14:00 Resp 17 10/26/20 14:00 BP 106/65 10/26/20 14:00 Pulse Ox 90 L 10/26/20 14:00 Intake & Output 10/25/20 10/26/20 10/26/20 18:59 06:59 18:59 Other: Voiding Method Toilet Toilet # Voids 1 2 - Exam - Constitutional General appearance: average body habitus, disheveled, morbidly obese - EENT Eyes: PERRLA Ears: bilateral: normal - Neck Carotids: bilateral: upstroke normal - Respiratory Respiratory: bilateral: CTA - Cardiovascular Rhythm: regular Heart sounds: normal: S1, S2 - Gastrointestinal General gastrointestinal: distended Localized gastrointestinal: tender: diffuse - Integumentary Integumentary: normal turgor - Neurologic Neurologic: CNII-XII intact - Musculoskeletal Musculoskeletal: gait normal, generalized weakness, strength equal bilaterally - Psychiatric Psychiatric: A&O x's 3, appropriate affect, intact judgment & insight - Labs CBC & Chem 7: 10/28/20 08:33 10/28/20 08:33 Labs: Abnormal Lab Results - Last 24 Hours (Table) 10/25/20 10/25/20 10/26/20 Range/Units 16:36 20:38 05:43 WBC 12.4 H (3.8-10.6) k/uL MCHC 30.7 L (31.0-37.0) g/dL Neutrophils # 8.6 H (1.3-7.7) k/uL Basophils # (0-0.2) k/uL Sodium (137-145) mmol/L Chloride (98-107) mmol/L Carbon Dioxide (22-30) mmol/L BUN (7-17) mg/dL Creatinine (0.52-1.04) mg/dL Glucose (74-99) mg/dL POC Glucose (mg/dL) 193 H 196 H (75-99) mg/dL 10/26/20 10/26/20 10/26/20 Range/Units 06:52 09:15 09:15 WBC 14.0 H (3.8-10.6) k/uL MCHC (31.0-37.0) g/dL Neutrophils # 9.7 H (1.3-7.7) k/uL Basophils # 0.4 H (0-0.2) k/uL Sodium 132 L (137-145) mmol/L Chloride 96 L (98-107) mmol/L Carbon Dioxide 33 H (22-30) mmol/L BUN 18 H (7-17) mg/dL Creatinine 1.16 H (0.52-1.04) mg/dL Glucose 196 H (74-99) mg/dL POC Glucose (mg/dL) 146 H (75-99) mg/dL 10/26/20 Range/Units 11:33 WBC (3.8-10.6) k/uL MCHC (31.0-37.0) g/dL Neutrophils # (1.3-7.7) k/uL Basophils # (0-0.2) k/uL Sodium (137-145) mmol/L Chloride (98-107) mmol/L Carbon Dioxide (22-30) mmol/L BUN (7-17) mg/dL Creatinine (0.52-1.04) mg/dL Glucose (74-99) mg/dL POC Glucose (mg/dL) 214 H (75-99) mg/dL Assessment and Plan Assessment: Acute sigmoid colon diverticulitis, slowly resolving Hypertension hypertensive cardiovascular disease Dyslipidemia Morbid obesity Type 2 diabetes mellitus Plan: Gentle rehydration Clear liquid diet advance as per surgical recommendation Broad-spectrum antibiotics Resume home medications Sliding scale insulin Bronchodilator as needed Other recommendations pending plan of care as per clinical response of the patient Time with Patient: Greater than 30
--- NOTE | 2020-10-28 15:45 | P.PN ---
Subjective Progress Note Date: 10/27/20 Principal diagnosis: Acute diverticulitis Hypertension hypertensive cardiovascular disease Dyslipidemia Morbid obesity Type 2 diabetes mellitus 10/27/2020, patient seen eval examined during the rounds labs reviewed medications reviewed, poor mostly patient has been symptom-free tolerating clear liquid diet intermittent pain however has been noted but overall most of the day she was pain-free 10/26/2020, patient seen eval examined during the rounds labs reviewed medicatio ns reviewed care plan discussed, pain has been occurring approximately, labs reviewed, hemodynamic status remains stable low-grade temperature has been seen WBCs 12,000, patient had a follow-up abdominal CT, revealed improving left-sided proximal sigmoid diverticulitis no new acute finding identified, patient has been reassured 10/25/2020, patient has been seen, intermittent pain is present not much improved, however patient is relatively better right now asking for liquid diet, hemodynamic status is remains stable, remains afebrile, 10/24/2020, still have intermittent abdominal pain, predominantly in left lower quadrant, she remains afebrile with stable hemodynamics oxygen saturation 96%, white cell count is within normal limits general surgery has been following the recommended for close monitoring and observation 10/23/2020 doing well no other [place] complains, and is still present but severity has improved, patient is denying tolerating diet, appears that patient can be discharged home likely tomorrow 10/22/2020, patient seen eval examined during the rounds, tolerating diet fairly well, noted patient is on 2 L oxygen recommend to check room air pulse ox more than 90% will DC the oxygen prescription of the antibiotics in chart 10/21/2020, patient seen and evaluated examined prescription entered into the computer for outpatient antibiotics stable from medical standpoint for discharge 10/20/2020, appetite continued to improve, tolerating by mouth well oxygenation is stable remains afebrile, patient underwent CT of the abdominal and pelvis, we will diverticulitis is a free air 10/19/2020, patient has been tolerating diet fairly well no GI symptoms are seen, patient remains on antibiotics, remains afebrile, oxygen saturation O2 96%, 10/18/2020, patient seen eval examined during the rounds labs reviewed medications reviewed, respiratory status remains stable tolerating by mouth well, patient remains on antibiotics and supportive care, 10/17/2020, abdominal pain is improved, denies any chest pain, patient is being given clear liquid diet gently rehydrated on antibiotics, continue supportive care from medical standpoint can be discharged on oral antibiotics like Cipro and Flagyl This is a pleasant 85-year-old female with history of diverticulosis diabetes mellitus COPD dyslipidemia hypertension hypertensive cardiovascular disease, she is been having lower abdominal pain for last 2 week came into the hospital due to intermittent pain and persistent however she denies any fever and denies any diarrhea, she has ongoing constipation as well, she has been started on IV antibiotics and computed tomography scan of the abdominal and pelvis revealed diverticulitis without any abscess formation, Objective - Vital Signs Vital signs: Vital Signs Temp 98.7 F 10/27/20 14:00 Pulse 82 10/27/20 14:00 Resp 16 10/27/20 14:00 BP 117/74 10/27/20 14:00 Pulse Ox 92 L 10/27/20 14:00 Intake & Output 10/26/20 10/27/20 10/27/20 18:59 06:59 18:59 Other: Voiding Method Toilet # Voids 1 2 # Bowel Movements 1 - Exam - Constitutional General appearance: average body habitus, disheveled, morbidly obese - EENT Eyes: PERRLA Ears: bilateral: normal - Neck Carotids: bilateral: upstroke normal - Respiratory Respiratory: bilateral: CTA - Cardiovascular Rhythm: regular Heart sounds: normal: S1, S2 - Gastrointestinal General gastrointestinal: distended Localized gastrointestinal: tender: diffuse - Integumentary Integumentary: normal turgor - Neurologic Neurologic: CNII-XII intact - Musculoskeletal Musculoskeletal: gait normal, generalized weakness, strength equal bilaterally - Psychiatric Psychiatric: A&O x's 3, appropriate affect, intact judgment & insight - Labs CBC & Chem 7: 10/28/20 08:33 10/28/20 08:33 Labs: Abnormal Lab Results - Last 24 Hours (Table) 10/26/20 10/26/20 10/27/20 Range/Units 16:56 20:16 06:41 POC Glucose (mg/dL) 179 H 196 H 155 H (75-99) mg/dL 10/27/20 Range/Units 11:18 POC Glucose (mg/dL) 247 H (75-99) mg/dL Assessment and Plan Assessment: Acute sigmoid colon diverticulitis, slowly resolving Hypertension hypertensive cardiovascular disease Dyslipidemia Morbid obesity Type 2 diabetes mellitus Plan: Gentle rehydration Clear liquid diet advance as per surgical recommendation Broad-spectrum antibiotics Resume home medications Sliding scale insulin Bronchodilator as needed Other recommendations pending plan of care as per clinical response of the patien Time with Patient: Greater than 30
--- NOTE | 2020-10-28 15:47 | P.PN ---
Subjective Principal diagnosis: Acute diverticulitis Hypertension hypertensive cardiovascular disease Dyslipidemia Morbid obesity Type 2 diabetes mellitus 10/28/2020, patient remains fairly stable and pain-free, hemodynamic status stable, afebrile, pain appears to be related to constipation, patient responded very well with antibiotics, patient likely will be discharged on oral Flagyl and Levaquin for 1 week and follow-up with Dr. Dee and Dr. Smith 10/27/2020, patient seen eval examined during the rounds labs reviewed medications reviewed, poor mostly patient has been symptom-free tolerating clear liquid diet intermittent pain however has been noted but overall most of the day she was pain-free 10/26/2020, patient seen eval examined during the rounds labs reviewed medications reviewed care plan discussed, pain has been occurring approximately, labs reviewed, hemodynamic status remains stable low-grade temperature has been seen WBCs 12,000, patient had a follow-up abdominal CT, revealed improving left- sided proximal sigmoid diverticulitis no new acute finding identified, patient has been reassured 10/25/2020, patient has been seen, intermittent pain is present not much improved, however patient is relatively better right now asking for liquid diet, hemodynamic status is remains stable, remains afebrile, 10/24/2020, still have intermittent abdominal pain, predominantly in left lower quadrant, she remains afebrile with stable hemodynamics oxygen saturation 96%, white cell count is within normal limits general surgery has been following the recommended for close monitoring and observation 10/23/2020 doing well no other [place] complains, and is still present but severity has improved, patient is denying tolerating diet, appears that patient can be discharged home likely tomorrow 10/22/2020, patient seen eval examined during the rounds, tolerating diet fairly well, noted patient is on 2 L oxygen recommend to check room air pulse ox more than 90% will DC the oxygen prescription of the antibiotics in chart 10/21/2020, patient seen and evaluated examined prescription entered into the computer for outpatient antibiotics stable from medical standpoint for discharge 10/20/2020, appetite continued to improve, tolerating by mouth well oxygenation is stable remains afebrile, patient underwent CT of the abdominal and pelvis, we will diverticulitis is a free air 10/19/2020, patient has been tolerating diet fairly well no GI symptoms are seen, patient remains on antibiotics, remains afebrile, oxygen saturation O2 96%, 10/18/2020, patient seen eval examined during the rounds labs reviewed medicat ions reviewed, respiratory status remains stable tolerating by mouth well, patient remains on antibiotics and supportive care, 10/17/2020, abdominal pain is improved, denies any chest pain, patient is being given clear liquid diet gently rehydrated on antibiotics, continue supportive care from medical standpoint can be discharged on oral antibiotics like Cipro and Flagyl This is a pleasant 85-year-old female with history of diverticulosis diabetes mellitus COPD dyslipidemia hypertension hypertensive cardiovascular disease, she is been having lower abdominal pain for last 2 week came into the hospital due to intermittent pain and persistent however she denies any fever and denies any diarrhea, she has ongoing constipation as well, she has been started on IV antibiotics and computed tomography scan of the abdominal and pelvis revealed diverticulitis without any abscess formation, Objective - Vital Signs Vital signs: Vital Signs Temp 98.6 F 10/28/20 07:45 Pulse 90 10/28/20 07:48 Resp 17 10/28/20 07:48 BP 126/74 10/28/20 07:45 Pulse Ox 93 L 10/28/20 09:03 Intake & Output 10/27/20 10/28/20 10/28/20 18:59 06:59 18:59 Intake Total 450 Balance 450 Intake: Oral 450 Other: Voiding Method Toilet Toilet # Voids 2 2 # Bowel Movements 1 - Exam - Constitutional General appearance: average body habitus, disheveled, morbidly obese - EENT Eyes: PERRLA Ears: bilateral: normal - Neck Carotids: bilateral: upstroke normal - Respiratory Respiratory: bilateral: CTA - Cardiovascular Rhythm: regular Heart sounds: normal: S1, S2 - Gastrointestinal General gastrointestinal: distended Localized gastrointestinal: tender: diffuse - Integumentary Integumentary: normal turgor - Neurologic Neurologic: CNII-XII intact - Musculoskeletal Musculoskeletal: gait normal, generalized weakness, strength equal bilaterally - Psychiatric Psychiatric: A&O x's 3, appropriate affect, intact judgment & insight - Labs CBC & Chem 7: 10/28/20 08:33 10/28/20 08:33 Labs: Abnormal Lab Results - Last 24 Hours (Table) 10/27/20 10/27/20 10/28/20 Range/Units 16:49 20:10 06:59 WBC (3.8-10.6) k/uL Neutrophils # (1.3-7.7) k/uL Basophils # (0-0.2) k/uL Sodium (137-145) mmol/L Chloride (98-107) mmol/L Carbon Dioxide (22-30) mmol/L Glucose (74-99) mg/dL POC Glucose (mg/dL) 225 H 206 H 171 H (75-99) mg/dL 10/28/20 10/28/20 10/28/20 Range/Units 08:33 08:33 11:50 WBC 12.1 H (3.8-10.6) k/uL Neutrophils # 8.8 H (1.3-7.7) k/uL Basophils # 0.3 H (0-0.2) k/uL Sodium 135 L (137-145) mmol/L Chloride 97 L (98-107) mmol/L Carbon Dioxide 34 H (22-30) mmol/L Glucose 147 H (74-99) mg/dL POC Glucose (mg/dL) 227 H (75-99) mg/dL Assessment and Plan Assessment: Acute sigmoid colon diverticulitis, slowly resolving Hypertension hypertensive cardiovascular disease Dyslipidemia Morbid obesity Type 2 diabetes mellitus Plan: Agree with discharge planning on oral antibiotics Follow-up with Dr. Smith primary care as well as Dr. Delacruz general surgery Time with Patient: Greater than 30
== END 2020-10-28 14:10 | disposition home health service (06) | DRG 392 ==
LOC: EC 12:06 → 1SOBS 16:17 → OBSVTOIN 10-15 07:39 → 5NMEDONC 10-18 12:58 → 4SSUR 10-24 18:37
PROVIDERS: ADMIT Surgery; ATTEND Surgery
DX: K57.32 Diverticulitis of large intestine without perforation or abscess without bleeding (principal); Z68.42 Body mass index [BMI] 45.0-49.9, adult; I11.9 Hypertensive heart disease without heart failure; J44.9 Chronic obstructive pulmonary disease, unspecified; E66.01 Morbid (severe) obesity due to excess calories; E11.9 Type 2 diabetes mellitus without complications; K58.1 Irritable bowel syndrome with constipation; E78.5 Hyperlipidemia, unspecified; M19.90 Unspecified osteoarthritis, unspecified site; E03.9 Hypothyroidism, unspecified; M54.5 Low back pain; I83.90 Asymptomatic varicose veins of unspecified lower extremity; K21.9 Gastro-esophageal reflux disease without esophagitis; R30.0 Dysuria; Z79.84 Long term (current) use of oral hypoglycemic drugs; Z79.890 Hormone replacement therapy; Z79.51 Long term (current) use of inhaled steroids; Z79.899 Other long term (current) drug therapy; Z71.3 Dietary counseling and surveillance; Z90.49 Acquired absence of other specified parts of digestive tract; Z87.19 Personal history of other diseases of the digestive system; Z87.01 Personal history of pneumonia (recurrent); Z86.59 Personal history of other mental and behavioral disorders; Z90.89 Acquired absence of other organs; Z96.651 Presence of right artificial knee joint; Z90.2 Acquired absence of lung [part of]; Z98.890 Other specified postprocedural states; Z82.3 Family history of stroke; Z80.52 Family history of malignant neoplasm of bladder; Z82.5 Family history of asthma and other chronic lower respiratory diseases; Z83.6 Family history of other diseases of the respiratory system
CPT/HCPCS: 36415; 74177; 80048; 80053; 81003; 83605; 83690; 85025; 85610; 85730; 93005; 94640; 94760; 96365; 96367; 96375; 99285

== ENCOUNTER 2020-12-11 07:59 | Day surgery (SDC) | payer MEDICARE ==
[2020-12-09 12:01] VITALS: BMI 42.5
[~2020-12-11 07:59] MED LIST changes: -DEXAMETHASONE SOD PHOSPHATE 10 MG/ML 1 ML VIAL IV ONE; -HYDROmorphone 1 MG/ML 1 ML SYRINGE IVP PRN; +LIDOCAINE 1% (10MG/ML) FOR IV START INTRADERMA PRN; -ONDANSETRON 4 MG/2 ML VIAL IVP ONE; -Pre Op ABX Message 1 EACH MISC MISCELLANE ONE
[2020-12-11 08:36] VITALS: RESP 20; TEMP 97.3
[2020-12-11 08:51] LABS: Glucose,Whole Blood 97 mg/dL (75-99)
[2020-12-11] MEDS ORDERED: PROPOFOL 10 MG/ML 20 ML VIAL IV ONE (09:34)
[2020-12-11] MEDS ORDERED: IV FLUID CONTINUATION 600 ML IV ONE ×2 (09:50)
--- NOTE | 2020-12-11 09:50 | P.PCN ---
Date of Procedure: 12/11/20 Procedure(s) Performed: BRIEF HISTORY: Patient is a 85-year-old pleasant 8 female scheduled for an elective colonoscopy as a part of evaluation of recent episode of acute sigmoid diverticulitis and intermittent rectal bleeding. PROCEDURE PERFORMED: Colonoscopy snare polypectomy. PREOPERATIVE DIAGNOSIS: Recent episode of diverticulitis and intermittent rectal bleeding. IV sedation per Anesthesia. PROCEDURE: After informed consent was obtained, the patient, was brought into the endoscopy unit. IV sedation was administered by Anesthesia under continuous monitoring. Digital rectal examination was normal. Initially the Olympus CF-160 flexible video colonoscope was then inserted in the rectum, gradually advanced into the cecum without any difficulty. Careful examination was performed as the scope was gradually being withdrawn. Ileocecal valve and the appendiceal orifice were visualized and appeared normal. Prep was excellent. Mucosa of the cecum, ascending colon appeared normal. In the proximal transverse colon there was a 5 mm sessile polyp removed by snare polypectomy. In the descending colon there was a 3 mm polyp removed by snare polypectomy. Rest of the, transverse colon, descending colon, sigmoid colon, and rectum appeared normal. Scattered diffuse diverticulosis noted. Retroflexion was performed in the rectum and no lesions were seen. The patient tolerated the procedure well. IMPRESSION: 5 mm transverse colon polyp serous posterior polypectomy 3 mm descending colon polyp status post polypectomy Scattered diffuse diverticulosis RECOMMENDATIONS: Findings of this examination were discussed with the patient as well as a family. She was advised to follow with the biopsy results. She'll be a high-fiber diet and take fiber supplements a regular basis she'll be seen in office in 2-3 weeks.
[2020-12-11 10:09] VITALS: BP 122/72; PULSE 69
== END 2020-12-11 10:40 | disposition home or self-care (01) ==
LOC: ORWHC2ENDO 07:59
PROVIDERS: ATTEND Internal Medicine Gastroenterology
DX: K63.5 Polyp of colon (principal); K57.31 Diverticulosis of large intestine without perforation or abscess with bleeding; E11.9 Type 2 diabetes mellitus without complications; I10 Essential (primary) hypertension; E78.5 Hyperlipidemia, unspecified; J44.9 Chronic obstructive pulmonary disease, unspecified; E07.9 Disorder of thyroid, unspecified; N28.9 Disorder of kidney and ureter, unspecified; R60.0 Localized edema; Z87.19 Personal history of other diseases of the digestive system; Z79.899 Other long term (current) drug therapy; Z79.51 Long term (current) use of inhaled steroids; Z79.890 Hormone replacement therapy; Z79.84 Long term (current) use of oral hypoglycemic drugs; Z88.8 Allergy status to other drugs, medicaments and biological substances; Z88.1 Allergy status to other antibiotic agents; Z98.890 Other specified postprocedural states; Z90.2 Acquired absence of lung [part of]; Z90.49 Acquired absence of other specified parts of digestive tract
CPT/HCPCS: 88305; 45385; J2704

== ENCOUNTER 2021-08-05 15:52 | Emergency (ER) | payer MEDICARE ==
--- NOTE | 2021-08-05 16:45 | ED ---
General Adult HPI - General Chief complaint: Urogenital Stated complaint: UTI-bacterial infection Time Seen by Provider: 08/05/21 16:15 Source: patient, RN notes reviewed, old records reviewed Mode of arrival: ambulatory Limitations: no limitations - History of Present Illness Initial comments: This is an 86-year-old female presents emergency Department complaining that she has been told she has a urinary tract infection she was on one antibiotic and then was told that the antibiotic did not cover and she was switched to Bactrim but she continues to have suprapubic pain and pain in her vagina and not only when she is urinating but on and off all day. Patient states she was given nystatin cream for the yeast infection and she also had but that made it worse. Patient denies any fever chills patient denies any back pain. Patient denies any nausea vomiting diarrhea. - Related Data Home Medications Medication Instructions Recorded Confirmed Rosuvastatin [Crestor] 10 mg PO HS 09/17/14 08/05/21 Losartan [Cozaar] 50 mg PO HS 11/21/15 08/05/21 Levothyroxine Sodium [Synthroid] 100 mcg PO DAILY 11/22/15 08/05/21 Furosemide [Lasix] 20 mg PO DAILY 09/17/20 08/05/21 Mometasone/Formoterol [Dulera 100 2 puff PO RT-BID 09/17/20 08/05/21 Mcg-5 Mcg Inhaler] Pioglitazone [Actos] 15 mg PO DAILY 09/17/20 08/05/21 glipiZIDE [Glucotrol] 5 mg PO DAILY 09/17/20 08/05/21 Docusate [Colace] 100 mg PO DAILY PRN 12/09/20 08/05/21 polyethylene glycoL 3350 [Miralax] 17 gm PO DAILY PRN 12/09/20 08/05/21 Cholecalciferol [Vitamin D3 (25 100 mcg PO DAILY 08/05/21 08/05/21 Mcg = 1000 Iu)] Fish Oil/Dha/Epa [Fish Oil 1,200 1 cap PO DAILY 08/05/21 08/05/21 mg Fish Oil] Nystatin 100,000Unit/gm Cream 1 applic TOPICAL QID PRN 08/05/21 08/05/21 [Mycostatin Cream] Sulfamethox-Tmp 800-160Mg [Bactrim 1 tab PO BID 08/05/21 08/05/21 DS 800-160 mg] Ubidecarenone [Co Q-10] 100 mg PO DAILY 08/05/21 08/05/21 Zinc Gluconate [Zinc] 50 mg PO DAILY 08/05/21 08/05/21 Previous Rx's Medication Instructions Recorded Albuterol Inhaler [Ventolin Hfa 2 puff INHALATION RT-Q4H PRN #1 09/21/20 Inhaler] puff Ascorbic Acid [Vitamin C] 500 mg PO DAILY #30 tab 09/21/20 Fluconazole [Diflucan] 150 mg PO ONCE #7 tab 08/05/21 Allergies Allergy/AdvReac Type Severity Reaction Status Date / Time Qpmirbu-Erp-Puv Reductase AdvReac Mild muscles Verified 08/05/21 16:19 Inhibitor aches/CAN TOLERATES CRESTOR cephalexin monohydrate AdvReac YEAST Verified 08/05/21 16:19 [From Keflex] INFECTION gabapentin [From Neurontin] AdvReac Unknown Verified 08/05/21 16:19 pregabalin [From Lyrica] AdvReac "FELT Verified 08/05/21 16:19 FUNNY" Review of Systems ROS Statement: Those systems with pertinent positive or pertinent negative responses have been documented in the HPI. ROS Other: All systems not noted in ROS Statement are negative. Past Medical History Past Medical History: Asthma, COPD, Diabetes Mellitus, Hyperlipidemia, Hypertension, Osteoarthritis (OA), Renal Disease, Thyroid Disorder Additional Past Medical History / Comment(s): COVID Aug 2020,Admitted Sep 2020 diverticulitis,hx diverticulosis,CHRONIC BRONCITIS W/ COUGH. LOWER BACK PAIN. PERIPHERAL EDEMA BLE, FEET. . RECENT IMPAIRED RENAL FUNCTION BEING MONITORED,Steroids Oct 2020, UTI july 2021 History of Any Multi-Drug Resistant Organisms: None Reported Past Surgical History: Adenoidectomy, Cholecystectomy, Hernia Repair, Joint Replacement, Tonsillectomy Additional Past Surgical History / Comment(s): RT KNEE REPLACED. UMB HERNIA. 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 D&C 2014. HEMORRHOID, FISSURE SURG. Past Anesthesia/Blood Transfusion Reactions: No Reported Reaction Additional Past Anesthesia/Blood Transfusion Reaction / Comment(s): unknown on blood transfusions. stated "with surgery was told by Anesthesiologist was difficult to put breathing tube in," Anesthesia Record-EMR Past Psychological History: Anxiety Smoking Status: Never smoker Past Alcohol Use History: None Reported Past Drug Use History: None Reported - Past Family History Father Family Medical History: Cancer, CVA/TIA Additional Family Medical History / Comment(s): BLADDER Mother Family Medical History: Asthma, Pneumonia Additional Family Medical History / Comment(s): MOM WHEN PT WAS 5 YRS OLD- SHE THINKS OF LUNG PROBLEMS & ASTHMA General Exam - General Exam Comments Initial Comments: GENERAL: Patient is well-developed and well-nourished. Patient is nontoxic and well- hydrated and is in mild distress. ENT: Neck is soft and supple. No significant lymphadenopathy is noted. Oropharynx is clear. Moist mucous membranes. Neck has full range of motion without eliciting any pain. EYES: The sclera were anicteric and conjunctiva were pink and moist. Extraocular movements were intact and pupils were equal round and reactive to light. Eyelids were unremarkable. PULMONARY: Unlabored respirations. Good breath sounds bilaterally. No audible rales rhonchi or wheezing was noted. CARDIOVASCULAR: There is a regular rate and rhythm without any murmurs gallops or rubs. ABDOMEN: Soft and nontender with normal bowel sounds. SKIN: Skin is clear with no lesions or rashes and otherwise unremarkable. NEUROLOGIC: Patient is alert and oriented x3. Cranial nerves II through XII are grossly intact. Motor and sensory are also intact. Normal speech, volume and content. Symmetrical smile. MUSCULOSKELETAL: Normal extremities with adequate strength and full range of motion. LYMPHATICS: No significant lymphadenopathy is noted PSYCHIATRIC: Normal psychiatric evaluation. Limitations: no limitations Course Vital Signs 08/05/21 16:15 Pulse Rate 63 Respiratory 20 Rate Blood Pressure 171/68 O2 Sat by Pulse 97 Oximetry Medical Decision Making - Medical Decision Making Catheterization was done for the urine and the area was slightly red with a little bit of whitish drainage. At that point, I asked patient if she had any other symptoms she stated it was very itchy down there. Patient states the nystatin seemed to irritate it even more. - Lab Data Result diagrams: 08/05/21 17:19 08/05/21 17:19 Lab Results 08/05/21 08/05/21 08/05/21 Range/Units 17:19 17:19 17:19 WBC 7.7 (3.8-10.6) k/uL RBC 4.98 (3.80-5.40) m/uL Hgb 14.6 (11.4-16.0) gm/dL Hct 46.2 H (34.0-46.0) % MCV 92.6 (80.0-100.0) fL MCH 29.3 (25.0-35.0) pg MCHC 31.7 (31.0-37.0) g/dL RDW 13.7 (11.5-15.5) % Plt Count 226 (150-450) k/uL MPV 8.2 Neutrophils % 49 % Lymphocytes % 40 % Monocytes % 5 % Eosinophils % 2 % Basophils % 1 % Neutrophils # 3.8 (1.3-7.7) k/uL Lymphocytes # 3.1 (1.0-4.8) k/uL Monocytes # 0.4 (0-1.0) k/uL Eosinophils # 0.1 (0-0.7) k/uL Basophils # 0.1 (0-0.2) k/uL Sodium 137 (137-145) mmol/L Potassium 4.4 (3.5-5.1) mmol/L Chloride 104 (98-107) mmol/L Carbon Dioxide 27 (22-30) mmol/L Anion Gap 6 mmol/L BUN 17 (7-17) mg/dL Creatinine 1.31 H (0.52-1.04) mg/dL Est GFR (CKD-EPI)AfAm 42 (>60 ml/min/1.73 sqM) Est GFR (CKD-EPI)NonAf 36 (>60 ml/min/1.73 sqM) Glucose 78 (74-99) mg/dL Calcium 9.6 (8.4-10.2) mg/dL Total Bilirubin 0.5 (0.2-1.3) mg/dL AST 25 (14-36) U/L ALT 16 (4-34) U/L Alkaline Phosphatase 78 (38-126) U/L Total Protein 6.6 (6.3-8.2) g/dL Albumin 3.9 (3.5-5.0) g/dL Urine Color Light Yellow Urine Appearance Clear (Clear) Urine pH 5.5 (5.0-8.0) Ur Specific [place] 1.009 (1.001-1.035) Urine Protein Negative (Negative) Urine Glucose (UA) Negative (Negative) Urine Ketones Negative (Negative) Urine Blood Negative (Negative) Urine Nitrite Negative (Negative) Urine Bilirubin Negative (Negative) Urine Urobilinogen <2.0 (<2.0) mg/dL Ur Leukocyte Esterase Negative (Negative) Disposition Clinical Impression: Yeast infection Disposition: HOME SELF-CARE Instructions (If sedation given, give patient instructions): Yeast Infection (ED) Prescriptions: Fluconazole [Diflucan] 150 mg PO ONCE #7 tab Is patient prescribed a controlled substance at d/c from ED?: No Referrals: Roney Smith DO [Primary Care Provider] - 1-2 days Time of Disposition: 18:49
[2021-08-05 17:26] LABS: Appearance,Urine Clear (Clear); Basophils # (A) 0.1 k/uL (0-0.2); Basophils % (A) 1 %; Bilirubin,Urine Negative (Negative); Blood,Urine Negative (Negative); Color,Urine Light Yellow; Eosinophils # (A) 0.1 k/uL (0-0.7); Eosinophils % (A) 2 %; Glucose,Urine (UA) Negative (Negative); HCT 46.2 % (34.0-46.0); HGB 14.6 gm/dL (11.4-16.0); Ketones,Urine Negative (Negative); Leukocyte Esterase,Urine Negative (Negative); Lymphocytes # (A) 3.1 k/uL (1.0-4.8); Lymphocytes % (A) 40 %; MCH 29.3 pg (25.0-35.0); MCHC 31.7 g/dL (31.0-37.0); MCV 92.6 fL (80.0-100.0); Mean Platelet Volume 8.2; Monocytes # (A) 0.4 k/uL (0-1.0); Monocytes % (A) 5 %; Neutrophils # (A) 3.8 k/uL (1.3-7.7); Neutrophils % (A) 49 %; Nitrite,Urine Negative (Negative); PH, Urine 5.5 (5.0-8.0); Platelet Count 226 k/uL (150-450); Protein,Urine Negative (Negative); RBC 4.98 m/uL (3.80-5.40); RDW 13.7 % (11.5-15.5); Specific Gravity,Urine 1.009 (1.001-1.035); Urobilinogen,Urine <2.0 mg/dL (<2.0); WBC 7.7 k/uL (3.8-10.6)
[2021-08-05 17:36] LABS: Albumin 3.9 g/dL (3.5-5.0); Calcium 9.6 mg/dL (8.4-10.2); Potassium 4.4 mmol/L (3.5-5.1); Total Bilirubin 0.5 mg/dL (0.2-1.3); Total Protein 6.6 g/dL (6.3-8.2)
[2021-08-05 19:36] VITALS: BP 183/68; PULSE 66; RESP 16
== END 2021-08-05 19:37 | disposition home or self-care (01) ==
LOC: EC 15:52
DX: B37.9 Candidiasis, unspecified (principal); J45.909 Unspecified asthma, uncomplicated; E11.9 Type 2 diabetes mellitus without complications; E78.5 Hyperlipidemia, unspecified; I10 Essential (primary) hypertension; M19.90 Unspecified osteoarthritis, unspecified site; F41.9 Anxiety disorder, unspecified; E07.9 Disorder of thyroid, unspecified; Z86.16 Personal history of COVID-19; Z87.440 Personal history of urinary (tract) infections; Z90.49 Acquired absence of other specified parts of digestive tract; Z90.89 Acquired absence of other organs; Z96.651 Presence of right artificial knee joint
CPT/HCPCS: 36415; 80053; 81003; 85025; 99284

== ENCOUNTER → 2021-09-10 | Outpatient (CLI) | payer MEDICARE ==
--- NOTE | 2021-09-10 16:07 | CT ---
EXAMINATION TYPE: CT lumbar spine wo con DATE OF EXAM: 09/10/2021 3:45 PM COMPARISON: CT lumbar spine May 31, 2018. HISTORY: low back pain and spondylolisthesis. CT DLP: 2444.3 mGycm Automated exposure control for dose reduction was used. Unenhanced CT of the lumbar spine was performed. Bone and soft tissue window settings are submitted as well as coronal and sagittal reconstructions. 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 There is persistent slight levoconvex scoliotic curvat ure centered at the lower lumbar spine. Osseous structures are demineralized. Vertebral body is vacuu m disc phenomenon at L3-L4 level redemonstrated with vacuum disc phenomenon at L4-L5 level. Stable mi ld disc space narrowing L5-S1 level. Stable mild multilevel anterior spurring. More moderate spurring at L3-L4 and L4-L5 levels is redemonstrated. Spinal canal grossly preserved. Axial images show T12-L1 and L1-L2 levels to remain within normal limits. Axial images at the L2-L3 level show mild to moderate facet degenerative changes bilaterally. There i s mild broad disc bulge mildly effacing anterior thecal sac. There is hxcb-[id number] bilateral ante rior inferior neural foraminal narrowing. Axial images at the L3-L4 level show moderate to advanced right greater than left facet degenerative changes causing significant mass effect right posterolateral thecal sac axial image 61. There is mode rate broad-based posterior disc protrusion effacing the anterior thecal sac. Subtle anterolisthesis a t this level. Patent bilateral neural foramina. Axial images at the L4-L5 level show advanced facet arthropathy bilaterally. Spinal canal is grossly preserved. Mild right-sided inferior neural foraminal narrowing due to marginal spur. Axial images at L5-S1 level show moderate to advanced facet arthropathy bilaterally. Spinal canal is preserved. Patent bilateral neural foramina. Mild to moderate calcified plaque of the aorta extends into branch vessels. There is retroaortic left renal vein which is normal variant. Some inferior posterior paraspinal muscular atrophy redemonstrat ed. IMPRESSION: Multilevel degenerative changes as detailed above. Findings most prominent or severe at m id to lower lumbar levels. Overall no significant change or progression from 2018 CT.
== END | disposition home or self-care (01) ==
LOC: RADCTMAIN 15:19
PROVIDERS: ATTEND Orthopaedic Surgery Orthopaedic Surgery of the Spine
DX: M51.26 Other intervertebral disc displacement, lumbar region (principal); M47.816 Spondylosis without myelopathy or radiculopathy, lumbar region
CPT/HCPCS: 72131

== ENCOUNTER → 2021-10-13 | Outpatient (CLI) | payer MEDICARE ==
[2021-10-13 14:13] VITALS: BP 153/81; PULSE 70; RESP 18; TEMP 97.8
--- NOTE | 2021-10-13 14:39 | P.PAINCN ---
History of Present Illness - Reason for Consult Consult date: 10/13/21 - History of Present Illness This is 86 years old female with a chronic history of severe back pain is thought that more than 8 years ago, intensity of the pain increased over the last few months, constant radiated to the lower extremty, she'll feel some weakness in her lower extremity bilaterally, she ambulates with difficulty, uses walker to ambulate, tried heat therapy and she was CBD, Past Medical History Past Medical History: Asthma, COPD, Diabetes Mellitus, Hyperlipidemia, Hypertension, Osteoarthritis (OA), Renal Disease, Thyroid Disorder Additional Past Medical History / Comment(s): COVID Aug 2020,Admitted Sep 2020 diverticulitis,hx diverticulosis,CHRONIC BRONCITIS W/ COUGH. LOWER BACK PAIN. PERIPHERAL EDEMA BLE, FEET. . RECENT IMPAIRED RENAL FUNCTION BEING MONITORED,Steroids Oct 2020, UTI july 2021 History of Any Multi-Drug Resistant Organisms: None Reported Past Surgical History: Adenoidectomy, Cholecystectomy, Hernia Repair, Joint Replacement, Tonsillectomy Additional Past Surgical History / Comment(s): RT KNEE REPLACED. UMB HERNIA. 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 D&C 2014. HEMORRHOID, FISSURE SURG. Past Anesthesia/Blood Transfusion Reactions: No Reported Reaction Additional Past Anesthesia/Blood Transfusion Reaction / Comm: unknown on blood transfusions. stated "with surgery was told by Anesthesiologist was difficult to put breathing tube in," Anesthesia Record-EMR Past Psychological History: Anxiety Smoking Status: Never smoker Past Alcohol Use History: None Reported Additional Past Alcohol Use History / Comment(s): AT 16 SMOKED 6 MO. Past Drug Use History: None Reported Additional Drug Use History / Comment(s): pt states she used CBD oil for extreme pain...states does not resort to it every day - Past Family History Father Family Medical History: Cancer, CVA/TIA Additional Family Medical History / Comment(s): BLADDER Mother Family Medical History: Asthma, Pneumonia Additional Family Medical History / Comment(s): MOM WHEN PT WAS 5 YRS OLD- SHE THINKS OF LUNG PROBLEMS & ASTHMA Medications and Allergies Home Medications Medication Instructions Recorded Confirmed Type Rosuvastatin [Crestor] 10 mg PO HS 09/17/14 08/05/21 History Losartan [Cozaar] 50 mg PO HS 11/21/15 08/05/21 History Levothyroxine Sodium [Synthroid] 100 mcg PO DAILY 11/22/15 08/05/21 History Furosemide [Lasix] 20 mg PO DAILY 09/17/20 08/05/21 History Mometasone/Formoterol [Dulera 100 2 puff PO RT-BID 09/17/20 08/05/21 History Mcg-5 Mcg Inhaler] Pioglitazone [Actos] 15 mg PO DAILY 09/17/20 08/05/21 History glipiZIDE [Glucotrol] 5 mg PO DAILY 09/17/20 08/05/21 History Albuterol Inhaler [Ventolin Hfa 2 puff INHALATION RT-Q4H PRN #1 09/21/20 08/05/21 Rx Inhaler] puff Ascorbic Acid [Vitamin C] 500 mg PO DAILY #30 tab 09/21/20 08/05/21 Rx Docusate [Colace] 100 mg PO DAILY PRN 12/09/20 08/05/21 History polyethylene glycoL 3350 [Miralax] 17 gm PO DAILY PRN 12/09/20 08/05/21 History Cholecalciferol [Vitamin D3 (25 100 mcg PO DAILY 08/05/21 08/05/21 History Mcg = 1000 Iu)] Fish Oil/Dha/Epa [Fish Oil 1,200 1 cap PO DAILY 08/05/21 08/05/21 History mg Fish Oil] Fluconazole [Diflucan] 150 mg PO ONCE #7 tab 08/05/21 Rx Nystatin 100,000Unit/gm Cream 1 applic TOPICAL QID PRN 08/05/21 08/05/21 History [Mycostatin Cream] Sulfamethox-Tmp 800-160Mg [Bactrim 1 tab PO BID 08/05/21 08/05/21 History DS 800-160 mg] Ubidecarenone [Co Q-10] 100 mg PO DAILY 08/05/21 08/05/21 History Zinc Gluconate [Zinc] 50 mg PO DAILY 08/05/21 08/05/21 History Allergies Allergy/AdvReac Type Severity Reaction Status Date / Time Fghzcsp-YGZ-DuX Reductase AdvReac Mild muscles Verified 08/05/21 16:19 Inhibitor aches/CAN [Aauimjf-Dad-Hon Reductase TOLERATES Inhibitor] CRESTOR cephalexin monohydrate AdvReac YEAST Verified 08/05/21 16:19 [From Keflex] INFECTION gabapentin [From Neurontin] AdvReac Unknown Verified 08/05/21 16:19 pregabalin [From Lyrica] AdvReac "FELT Verified 08/05/21 16:19 FUNNY" Physical Exam Vitals: Vital Signs Temp Pulse Resp BP 10/13/21 14:05 97.8 F 70 18 153/81 Intake and Output 10/12/21 10/13/21 10/13/21 22:59 06:59 14:59 Other: Weight 115.666 kg Physical Examinations : -Constitutiona : Cooperative , not in acute distress . -HEENT : nech : supple , no Lymphadenopathy , normal thyroid size . : eyes : no ptosis , no icterus, no photophobia . - neurologic : Cranial nerve II to XII intact , no focal neurological deffecit . -psychatric : alert , oriented X 3 , appropriate affect , intact judgment and insight . -Lymphatic : no Lymphadenopathy . - musculoskeltal : Lumber spine moter stegnth lower extremities ,thigh and legs 4/5 Right side , 4/5 Left side deep tendon reflexes : normal Knee Jerk , normal ankle Jerk lumber facet Loading Test =positive Right , positive Left Range of motion of the lumbar spine Flexion 30 degrees, extension 10 degrees strait leg raising test = positive at 30 degree Fabere test= positive Right , and positive LT . Sever tenderness over the Sacroiliac joint on the Right , and Left sides Gaenslen test= positive right ,and positive left . Seated flexion test= positive right ,and positive Left . Distraction test= positive bilaterally Sacroiliac compression test= positive bilaterally Results Comments: MRI of the lumbar spine= multilevel lumbar degenerative disc disease and multilevel lumbar facet arthropathy Assessment and Plan Plan: Assessment and plan=1-lumbar degenerative disc disease. 2-lumbar spondylosis with lumbar facet arthropathy without myelopathy. 3-bilateral sacroiliitis. she could benefit from lumbar epidural steroid injection under fluoroscopy guidance at L5-S1. Procedure risk and benefits and alternatives discussed with the patient and she agreed with the preceding Time with Patient: Greater than 30 PQRS Measure Charge Sheet Measure #130: Documentation of Current Meds in Medical Chart: Patient's medications documented in chart Measure #226: Tobacco Use: Screen & Cessation Intervention: Pt not a tobacco user Measure #111: Pneumonia Vaccination: Pneumococcal vaccine administered or pre viously received Measure #47: Advance Care Plan: Advance care planning discussed & documented, pt chose/unable to give Measure #412: Opioid Treatment Agreement: No documentation of signed opioid treatment agreement Measure #408: Opioid Therapy Follow-up Evaluation: Patient had NO f/u eval minimum every 3 months during opioid therapy Measure #317: Preventitive Care & Scrn High Bld Press & F/U: Pre-hypertensive or hypertensive BP documented, pt will f/u with PCP Measure #128: Body Mass Index (BMI) Screening & Follow-up: BMI documented ABOVE normal parameters - f/u documented Measure #131: Pain Assessment & Follow-up: Pain positive & plan documented, Follow-up scheduled Measure #431: Unhealthy Alcohol Use Preventative Care & Scrn: Patient not identified as an unhealthy alcohol user Mode of Arrival: Wheelchair - Pain Location Lower Back Non-Pharmacological Interventions: Heat, Inactivity, Relaxation Technique, Sitting Pharmacological Interventions: Medication, Topical Medication PQRS Narrative: Smoking Status Former smoker Blood Pressure 153/81 Pain Intensity [Lower Back] 5 Scale Used Numeric (1 - 10) Home Medications: Ambulatory Orders Rosuvastatin [Crestor] 10 mg PO HS 09/17/14 Losartan [Cozaar] 50 mg PO HS 11/21/15 Levothyroxine Sodium [Synthroid] 100 mcg PO DAILY 11/22/15 Furosemide [Lasix] 20 mg PO DAILY 09/17/20 Mometasone/Formoterol [Dulera 100 Mcg-5 Mcg Inhaler] 2 puff PO RT-BID 09/17/20 Pioglitazone [Actos] 15 mg PO DAILY 09/17/20 glipiZIDE [Glucotrol] 5 mg PO DAILY 09/17/20 Albuterol Inhaler [Ventolin Hfa Inhaler] 2 puff INHALATION RT-Q4H PRN #1 puff 09/21/20 Ascorbic Acid [Vitamin C] 500 mg PO DAILY #30 tab 09/21/20 Docusate [Colace] 100 mg PO DAILY PRN 12/09/20 polyethylene glycoL 3350 [Miralax] 17 gm PO DAILY PRN 12/09/20 Cholecalciferol [Vitamin D3 (25 Mcg = 1000 Iu)] 100 mcg PO DAILY 08/05/21 Fish Oil/Dha/Epa [Fish Oil 1,200 mg Fish Oil] 1 cap PO DAILY 08/05/21 Fluconazole [Diflucan] 150 mg PO ONCE #7 tab 10/12/21 Nystatin 100,000Unit/gm Cream [Mycostatin Cream] 1 applic TOPICAL QID PRN 08/05/21 Sulfamethox-Tmp 800-160Mg [Bactrim DS 800-160 mg] 1 tab PO BID 08/05/21 Ubidecarenone [Co Q-10] 100 mg PO DAILY 08/05/21 Zinc Gluconate [Zinc] 50 mg PO DAILY 08/05/21
== END ==
LOC: PNWHC3 13:38
PROVIDERS: ATTEND Specialist
DX: M51.36 Other intervertebral disc degeneration, lumbar region (principal); M47.816 Spondylosis without myelopathy or radiculopathy, lumbar region; M46.1 Sacroiliitis, not elsewhere classified; J45.909 Unspecified asthma, uncomplicated; J44.9 Chronic obstructive pulmonary disease, unspecified; E11.9 Type 2 diabetes mellitus without complications; E78.5 Hyperlipidemia, unspecified; I10 Essential (primary) hypertension; M19.90 Unspecified osteoarthritis, unspecified site; F41.9 Anxiety disorder, unspecified; Z79.899 Other long term (current) drug therapy; Z79.84 Long term (current) use of oral hypoglycemic drugs; Z88.8 Allergy status to other drugs, medicaments and biological substances; Z88.1 Allergy status to other antibiotic agents; Z88.6 Allergy status to analgesic agent; Z87.891 Personal history of nicotine dependence
CPT/HCPCS: 99211

== ENCOUNTER 2022-05-07 11:14 | Day surgery (SDC) | payer MEDICARE ==
[2022-05-05 12:30] VITALS: BMI 46.9
[~2022-05-07 11:14] MED LIST changes: -LIDOCAINE 1% (10MG/ML) FOR IV START INTRADERMA PRN
[2022-05-07 11:42] VITALS: TEMP 97
[2022-05-07 12:00] LABS: Glucose,Whole Blood 111 mg/dL (70-110)
[2022-05-07] MEDS ORDERED: fentaNYL (PF) 50 MCG/ML 2 ML AMP ONE (12:39)
[2022-05-07] MEDS ORDERED: MIDAZOLAM 2 MG/2 ML VIAL ONE (12:39)
[2022-05-07] MEDS ORDERED: IOPAMIDOL M200 10 ML VIAL ONE (12:39)
[2022-05-07] MEDS ORDERED: methylPREDNISolone ACETATE 40 MG/ML 1 ML VIAL ONE (12:39)
[2022-05-07] MEDS ORDERED: DEXAMETHASONE SOD PHOSPHATE 10 MG/ML 1 ML VIAL ONE (12:39)
--- NOTE | 2022-05-07 12:43 | P.PCN ---
Date of Procedure: 05/07/22 Procedure(s) Performed: Lumbar epidural steroid injection at L5-S1 Description of Procedure: PREOPERATIVE DIAGNOSIS: lumbar radiculopathy POSTOPERATIVE DIAGNOSIS: Lumbar radiculopathy PROCEDURE 1. Lumbar epidural steroid injection under fluoroscopic guidance at the L5-S1 level. 2. Lumbar epidurogram. Imaging: Fluoroscopy was used, images where saved to the medical record ANESTHESIA: Local with 1% lidocaine 5 ml and Versed and fentanyl EBL: Minimal PROCEDURE INDICATION: The patient with low back pain and radiculitis symptoms unresponsive to conservative treatment. Fluoroscopy was used to optimize visualization of the needle placement and to maximize safety. PROCEDURE DESCRIPTION / TECHNIQUE: The patient was seen and identified in the preoperative area. Risks, benefits, complications including but not limited to infections ,bleeding ,allergic reaction to the medications, nerve damage and incomplete pain relief , as well as alternatives to the procedure were discussed with the patient. The patient agreed to proceed with the procedure and signed the consent. IV was started, and vital signs were stable. Patient was taken to the OR and time out was completed. The patient was placed in the prone position on procedure table and a pillow was placed under the abdomen to reduce lumbar lordosis. The lumbosacral area was prepped and draped in the usual sterile fashion. Vitals were closely monitored during the procedure. Using anterior-posterior fluoroscopy, the L 5/1 interlaminar space was identified and the skin over this site was marked and then infiltrated with 1% lidocaine subcutaneously. Subsequently, a 20-gauge Tuohy epidural needle was inserted and advanced toward the epidural space using the Loss of resistance te chnique and guided by AP and lateral fluoroscopy. The correct needle position in the epidural space was verified with the injection of 1 mL of Omnipaque 180 contrast to observe an acceptable epidurogram, after negative aspiration for blood and CSF and in the absence of paresthesias. Again after negative aspiration, a 3 ml mixture containing 40mg of depomedrol and 2 ml of preservative free Normal Saline was injected and a washout of epidurogram was seen. Needle was withdrawn intact, skin was cleansed, and bandages were applied. COMPLICATIONS: None DISPOSITION / PLANS: The patient was placed in a supine position and transferred to the recovery area in a stable condition for observation. There was no evidence of lower extremity motor or sensory deficit after the procedure. Patient was discharged from the recovery room after meeting discharge criteria. Home discharge instructions were given to the patient by the staff. The patient was reexamined prior to discharge. The patient will follow up as directed.
[2022-05-07] MEDS ORDERED: IV FLUID CONTINUATION 800 ML IV ONE (12:56)
--- NOTE | 2022-05-07 13:01 | FL ---
Fluoroscopy History: LUM EPID INJ LUM EPID INJ. DR MOELLER. 4 SEC FLUORO. 1 IMAGE SENT.
[2022-05-07 13:23] VITALS: BP 103/51; PULSE 71; RESP 18
== END 2022-05-07 13:27 | disposition home or self-care (01) ==
LOC: ORPAIN 11:14
PROVIDERS: ATTEND Hospitalist
DX: M54.16 Radiculopathy, lumbar region (principal); Z88.8 Allergy status to other drugs, medicaments and biological substances; Z88.1 Allergy status to other antibiotic agents; Z79.890 Hormone replacement therapy; Z79.899 Other long term (current) drug therapy; Z79.84 Long term (current) use of oral hypoglycemic drugs; Z87.891 Personal history of nicotine dependence
CPT/HCPCS: 62323; J2250; J1100; J3010; Q9966

== ENCOUNTER 2022-05-21 06:01 | Day surgery (SDC) | payer MEDICARE ==
[~2022-05-21 06:01] MED LIST changes: -LACTATED RINGERS 1,000 ML IV SCH; +SODIUM CHLORIDE 0.9% 1,000 ML in EMPTY BAG 1 BAG IV ONE
[2022-05-21] MEDS ORDERED: NITROGLYCERIN SL TABS 0.4 MG TAB SUBLINGUAL PRN (06:03)
[2022-05-21] MEDS ORDERED: ALPRAZolam 0.5 MG TAB PO PRN (06:03)
[2022-05-21] MEDS ORDERED: ASPIRIN 325 MG TAB PO STA (06:03)
[2022-05-21] MEDS ORDERED: HEPARIN SODIUM,PORCINE 10,000 UNIT in SODIUM CHLORIDE 0.9% 1,000 ML IRRIGATION PRN (06:03)
[2022-05-21] MEDS ORDERED: ALPRAZolam 0.25 MG TAB PO PRN (06:03)
[2022-05-21] MEDS ORDERED: SODIUM CHLORIDE 0.9% 1,000 ML in EMPTY BAG 1 BAG IV SCH (06:03)
[2022-05-21] MEDS ORDERED: HEPARIN SODIUM,PORCINE 2,500 UNIT in SODIUM CHLORIDE 0.9% 250 ML IRRIGATION PRN (06:03)
[2022-05-21 06:49] LABS: Glucose,Whole Blood 120 mg/dL (70-110)
[2022-05-21 06:59] VITALS: RESP 18; TEMP 98.6
[2022-05-21] MEDS ORDERED: VERAPAMIL 2.5 MG/ML 2 ML AMP ONE (07:33)
[2022-05-21] MEDS ORDERED: fentaNYL (PF) 50 MCG/ML 2 ML AMP ONE (07:34)
[2022-05-21] MEDS ORDERED: HEPARIN SODIUM 1,000 UN/ML (10ML VL) ONE (07:34)
[2022-05-21] MEDS ORDERED: MIDAZOLAM 2 MG/2 ML VIAL IV ONE (07:45)
[2022-05-21] MEDS: fentaNYL (PF) 50 MCG/ML 2 ML AMP IV ONE ×2 (07:45→07:53)
[2022-05-21] MEDS ORDERED: LIDOCAINE 1% INJ 10MG/ML (5 ML VIAL-PF) SQ ONE (07:48)
[2022-05-21] MEDS ORDERED: VERAPAMIL SYRINGE (5 MG/10 ML) INTRAARTER ONE (07:50)
[2022-05-21] MEDS ORDERED: HEPARIN SODIUM 1,000 UN/ML (10ML VL) IV ONE (07:53)
[2022-05-21] MEDS ORDERED: IOPAMIDOL-370 125ML BTL INJ ONE (08:12)
--- NOTE | 2022-05-21 08:27 | P.CARDCATH ---
Description of Procedure: PROCEDURES PERFORMED: Left heart catheterization, bilateral coronary angiography INDICATION: Abnormal stress test HISTORY: Patient is a pleasant 87-year-old female who has rare episodes of chest pain as well as dyspnea on exertion. She therefore had a nuclear stress test which showed inferior inducible ischemia. CONSENT:I have discussed the risks, benefits and alternative therapies for the above-mentioned procedure and for both sedation/analgesia as well as necessary blood product administration, if indicated, as they pertain to this patient. The patient has indicated understanding and acceptance of the risks and procedures discussed. PROCEDURE: After the risks, benefits and alternatives of the above mentioned procedure explained in detail with the patient, informed consent was obtained. Patient was taken to the catheterization lab and prepped and draped in usual fashion. 1% lidocaine was used to anesthetize the right radial artery. A 6- Wallisian sheath was placed in the right radial artery using modified Seldinger technique. Left coronary angiography was performed with a 5-Wallisian JL 3.5 catheter and right coronary angiography was performed with a 6-Wallisian AR2 catheter in various views. A 5-Wallisian FR5 catheter was inserted into the left ventricle and pressure measurements were obtained. The right radial sheath was removed and a TR band was placed with hemostasis achieved. The patient tolerated the procedure well. Patient was transported back to the post catheterization holding area in stable condition. Conscious Sedation: Patient was monitored under the direct supervision of vision of myself for conscious sedation using Versed and fentanyl for a total duration of 28 minutes HEMODYNAMICS: Aorto 139/58 LV: 138/6, LVEDP 20 SELECTIVE CORONARY ARTERIOGRAPHY: LEFT MAIN: The left main is a large caliber vessel which bifurcates into the LAD and circumflex. There is no significant stenosis. LEFT ANTERIOR DESCENDING CORONARY ARTERY: LAD is a large caliber vessel which wraps around to the apex. There are mild luminal irregularities and a more focal napkin ring 50% mid LAD stenosis. LEFT CIRCUMFLEX CORONARY ARTERY: Left circumflex is a moderate caliber vessel with a proximal 40% stenosis and a more focal 50-60% mid circumflex stenosis. RIGHT CORONARY ARTERY: The right coronary artery is a large caliber vessel which gives off a PDA and PLV branch and is the dominant vessel. There are mild luminal irregularities with up to 30% proximal and mid RCA stenosis. Otherwise no significant stenosis.. FINAL IMPRESSION: 1. Mild to moderate CAD as described above including 30% mid RCA stenosis, 50% mid LAD stenosis and 50-60% mid circumflex stenosis. 2. Mildly elevated left sided filling pressures PLAN: 1. Aggressive risk factor modification per most recent ACC/AHA guidelines. 2. Stress test showed ischemia in the inferior region with RCA only having mild disease. Would treat LAD and circumflex medically however if has significant angina may consider iFR/FFR.
[2022-05-21 11:26] VITALS: BP 128/68; PULSE 56
== END 2022-05-21 12:41 | disposition home or self-care (01) ==
LOC: CATHCVL 06:01
PROVIDERS: ATTEND Internal Medicine
DX: I25.10 Atherosclerotic heart disease of native coronary artery without angina pectoris (principal); Z20.822 Contact with and (suspected) exposure to COVID-19; I11.0 Hypertensive heart disease with heart failure; I50.32 Chronic diastolic (congestive) heart failure; E78.5 Hyperlipidemia, unspecified; J44.9 Chronic obstructive pulmonary disease, unspecified; E11.51 Type 2 diabetes mellitus with diabetic peripheral angiopathy without gangrene; Z72.0 Tobacco use; Z88.1 Allergy status to other antibiotic agents; Z79.82 Long term (current) use of aspirin
CPT/HCPCS: 93458; 87635; C1769; C1894; J2250; J2001; J3010; J1644; Q9967

== ENCOUNTER 2022-06-17 11:20 | Observation (INO) | payer MEDICARE ==
--- NOTE | 2022-06-17 11:47 | ED ---
General Adult HPI - General Source: patient, EMS, RN notes reviewed, old records reviewed Mode of arrival: ambulatory Limitations: physical limitation <Everardo Navas - Last Filed: 06/17/22 14:38> <Bari Alford - Last Filed: 06/17/22 17:00> - General Chief complaint: Urogenital Stated complaint: weakness, poss uti, COVID + Time Seen by Provider: 06/17/22 11:40 - History of Present Illness Initial comments: This is an 87-year-old female presents emergency Department complaining that she was just recently treated for urinary tract infection but she still having some dysuria. Patient also states that she tested positive for COVID 2 weeks ago and again yesterday. Patient states she went to a coughing phase but she's not coughing a lot now however she did cough up a little sputum. Patient denies any fever chills. Patient denies any shortness of breath or chest pain. Patient denies abdominal pain. Patient states she does feel in general weak overall over. (Everardo Navas) - Related Data Home Medications Medication Instructions Recorded Confirmed Losartan [Cozaar] 50 mg PO HS 11/21/15 06/17/22 Pioglitazone [Actos] 15 mg PO DAILY 09/17/20 06/17/22 glipiZIDE [Glucotrol] 5 mg PO DAILY 09/17/20 06/17/22 polyethylene glycoL 3350 [Miralax] 17 gm PO DAILY PRN 12/09/20 06/17/22 Ubidecarenone [Co Q-10] 100 mg PO DAILY 08/05/21 06/17/22 Zinc Gluconate [Zinc] 50 mg PO DAILY 08/05/21 06/17/22 Aspirin [Adult Low Dose Aspirin EC] 81 mg PO HS 05/05/22 06/17/22 Rosuvastatin [Crestor] 20 mg PO HS 05/05/22 06/17/22 Turmeric Root Extract [Turmeric] 1,053 mg PO DAILY 05/05/22 06/17/22 traMADol HCL 50 - 100 mg PO Q6H PRN 05/05/22 06/17/22 Mometasone/Formoterol [Dulera 100 2 puff INHALATION RT-BID 05/19/22 06/17/22 Mcg-5 Mcg Inhaler] carvediloL [Coreg] 3.125 mg PO Q12H 05/19/22 06/17/22 Cholecalciferol (Vitamin D3) 125 mcg PO DAILY 06/17/22 06/17/22 [Vitamin D3 (125 MCG = 5,000 IU)] Furosemide [Lasix] 20 mg PO DAILY 06/17/22 06/17/22 Levothyroxine Sodium 112 mcg PO DAILY 06/17/22 06/17/22 Previous Rx's Medication Instructions Recorded Albuterol Inhaler [Ventolin Hfa 2 puff INHALATION RT-Q4H PRN #1 09/21/20 Inhaler] puff Ascorbic Acid [Vitamin C] 500 mg PO DAILY #30 tab 09/21/20 Hydrocortisone Cream 1 applic TOPICAL BID #28 gm 06/17/22 [Hydrocortisone 1% Cream] Sulfamethox-Tmp 800-160Mg [Bactrim 1 tab PO Q12HR 3 Days #6 tab 06/17/22 DS 800-160 mg] dexAMETHasone [Decadron] 6 mg PO DAILY 4 Days #4 tablet 06/17/22 Allergies Allergy/AdvReac Type Severity Reaction Status Date / Time Ejymxdx-CCC-LfQ Reductase AdvReac Mild muscles Verified 06/17/22 13:58 Inhibitor aches/CAN [Nyekzjm-Tzg-Epm Reductase TOLERATES Inhibitor] CRESTOR cephalexin monohydrate AdvReac YEAST Verified 06/17/22 13:58 [From Keflex] INFECTION gabapentin [From Neurontin] AdvReac Unknown Verified 06/17/22 13:58 pregabalin [From Lyrica] AdvReac "FELT Verified 06/17/22 13:58 FUNNY" Review of Systems ROS Other: All systems not noted in ROS Statement are negative. <Everardo Navas - Last Filed: 06/17/22 14:38> ROS Other: All systems not noted in ROS Statement are negative. <Bari Alford - Last Filed: 06/17/22 17:00> ROS Statement: Those systems with pertinent positive or pertinent negative responses have been documented in the HPI. Past Medical History Past Medical History: Asthma, COPD, Diabetes Mellitus, Hyperlipidemia, Hyperten danika, Osteoarthritis (OA), Thyroid Disorder Additional Past Medical History / Comment(s): ABNORMAL CARDIAC TESTING. SEE DR. Mckinley H & P. PATIENT HAD WOUND CARE OF LEFT ANKLE AREA, IT IS NOT OPEN, BUT IS RED. hx diverticulitis & diverticulosis, chronic bronchitis., lower back pain., edema legs & feet., bladder urgency-wears pads., difficulty walking-uses walker. History of Any Multi-Drug Resistant Organisms: None Reported Past Surgical History: Adenoidectomy, Cholecystectomy, Hernia Repair, Joint Replacement, Tonsillectomy Additional Past Surgical History / Comment(s): RT KNEE REPLACED. UMB HERNIA. 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 D&C 2014. HEMORRHOID, FISSURE SURG. Past Anesthesia/Blood Transfusion Reactions: No Reported Reaction Additional Past Anesthesia/Blood Transfusion Reaction / Comment(s): surgery was told by Anesthesiologist was difficult to put breathing tube in," Anesthesia Record-EMR Past Psychological History: Anxiety Smoking Status: Never smoker Past Alcohol Use History: None Reported Past Drug Use History: None Reported - Past Family History Father Family Medical History: Cancer, CVA/TIA Additional Family Medical History / Comment(s): BLADDER Mother Family Medical History: Asthma, Pneumonia Additional Family Medical History / Comment(s): MOM WHEN PT WAS 5 YRS OLD- SHE THINKS OF LUNG PROBLEMS & ASTHMA <Everardo Navas - Last Filed: 06/17/22 14:38> General Exam Limitations: physical limitation <Everardo Navas - Last Filed: 06/17/22 14:38> - General Exam Comments Initial Comments: GENERAL: Patient is well-developed and well-nourished. Patient is nontoxic and well- hydrated and is in no acute distress. ENT: Neck is soft and supple. No significant lymphadenopathy is noted. Oropharynx is clear. Moist mucous membranes. Neck has full range of motion without eliciting any pain. EYES: The sclera were anicteric and conjunctiva were pink and moist. Extraocular movements were intact and pupils were equal round and reactive to light. Eyelids were unremarkable. PULMONARY: Unlabored respirations. Good breath sounds bilaterally. No audible rales rhonchi or wheezing was noted. CARDIOVASCULAR: There is a regular rate and rhythm without any murmurs gallops or rubs. ABDOMEN: Soft and nontender with normal bowel sounds. SKIN: Skin is clear with no lesions or rashes and otherwise unremarkable. NEUROLOGIC: Patient is alert and oriented x3. Cranial nerves II through XII are grossly intact. Motor and sensory are also intact. Normal speech, volume and content. Symmetrical smile. MUSCULOSKELETAL: Normal extremities with adequate strength and full range of motion. Edema bilaterally patient states it's baseline LYMPHATICS: No significant lymphadenopathy is noted PSYCHIATRIC: Normal psychiatric evaluation. (Everardo Navas) Course Vital Signs 06/17/22 11:35 Temperature 98.9 F Pulse Rate 62 Respiratory 18 Rate Blood Pressure 165/73 O2 Sat by Pulse 97 Oximetry Medical Decision Making <Everardo Navas - Last Filed: 06/17/22 14:38> - Lab Data Result diagrams: 06/17/22 15:02 06/17/22 15:02 <Bari Alford - Last Filed: 06/17/22 17:00> - Medical Decision Making EKG shows sinus rhythm with occasional PAC at 64 bpm WA interval is 201 QRSs 86 QT interval 399 QTC is 408. Patient's EKG shows no ST segment patient or depression. Patient is COVID positive and she states her symptoms started about [address] Alford be taking over the care of this patient at 3 PM (Everardo Navas) Patient was signed out to me pending results of laboratory studies, chest x-ray. She is an 87-year-old female. Presents for mild weakness as well as urinary tract symptoms. Includes vaginal irritation and pain. States she recently derrick ated for UTI. To calm testing was found to be positive for cocaine. Denies worsening shortness of breath. Denies any chest pain, nausea, vomiting. Denies any diarrhea. Has no other acute complaints at this time. Symptoms have been ongoing for approximately 2 weeks which places her out of the range for Paxlovid treatment. Laboratory studies otherwise are relatively unremarkable except for positive Covid test. Chest x-ray does show some mild pulmonary vascular congestion but BNP is normal. Patient's age. Patient is CK D. GFR is low. She sugar somewhat low at 63, however she was given something to eat. We will recheck that prior to discharge. It'll signs within normal limits. On reevaluation, I discussed with the patient the results of her laboratory studies and imaging. At this time I did perform a genitourinary exam, and it does show erythematous vaginal mucosa. I suspected an acute vaginitis possibly from irritation from urine. She'll be discharged home with a steroid cream. She is also requesting a few extra days of antibiotics which I believe is reasonable as she is having some mild symptoms. We'll continue the Bactrim for treatment for UTI for 3 additional days. Also provide her with a dose of Decadron as well as a 2 day prescription of Decadron over concern for her COVID- 19 infection and history of COPD per chart. She was in agreement this plan. Will be discharged home via wheelchair van. Repeat sugar was within normal limits. Vital signs remain within normal limits. Discharge it did speak with the patient's daughter who is power of commercial attorney. She states the patient lives largely by herself. No one lives nearby to help out. They would like the patient admitted for evaluation for placement. She is unable to take care of herself at home with ADLs. I do believe this is reasonable admission. Patient was updated. I spoke with the admitting team, Maria Fernanda CORNELL of [facility] who is covering for Dr. Alvarez. She was in agreement with the admission. (Bari Alford) - Lab Data Lab Results 06/17/22 06/17/22 06/17/22 Range/Units 12:09 12:09 14:58 WBC (3.8-10.6) k/uL RBC (3.80-5.40) m/uL Hgb (11.4-16.0) gm/dL Hct (34.0-46.0) % MCV (80.0-100.0) fL MCH (25.0-35.0) pg MCHC (31.0-37.0) g/dL RDW (11.5-15.5) % Plt Count (150-450) k/uL MPV Neutrophils % % Lymphocytes % % Monocytes % % Eosinophils % % Basophils % % Neutrophils # (1.3-7.7) k/uL Lymphocytes # (1.0-4.8) k/uL Monocytes # (0-1.0) k/uL Eosinophils # (0-0.7) k/uL Basophils # (0-0.2) k/uL Sodium (137-145) mmol/L Potassium (3.5-5.1) mmol/L Chloride (98-107) mmol/L Carbon Dioxide (22-30) mmol/L Anion Gap mmol/L BUN (7-17) mg/dL Creatinine (0.52-1.04) mg/dL Est GFR (CKD-EPI)AfAm (>60 ml/min/1.73 sqM) Est GFR (CKD-EPI)NonAf (>60 ml/min/1.73 sqM) Glucose (74-99) mg/dL POC Glucose (mg/dL) (70-110) mg/dL POC Glu Amusement Ride Inspector ID Calcium (8.4-10.2) mg/dL Total Bilirubin (0.2-1.3) mg/dL AST (14-36) U/L ALT (4-34) U/L Alkaline Phosphatase (38-126) U/L NT-Pro-B Natriuret Pep 322 pg/mL Total Protein (6.3-8.2) g/dL Albumin (3.5-5.0) g/dL Urine Color Light Yellow Urine Appearance Clear (Clear) Urine pH 5.0 (5.0-8.0) Ur Specific [place] 1.012 (1.001-1.035) Urine Protein Negative (Negative) Urine Glucose (UA) Negative (Negative) Urine Ketones Negative (Negative) Urine Blood Trace H (Negative) Urine Nitrite Negative (Negative) Urine Bilirubin Negative (Negative) Urine Urobilinogen <2.0 (<2.0) mg/dL Ur Leukocyte Esterase Negative (Negative) Urine RBC 5 (0-5) /hpf Urine WBC 1 (0-5) /hpf Ur Squamous Epith Cells 1 (0-4) /hpf Urine Mucus Rare H (None) /hpf Coronavirus (PCR) Detected A (Not Detectd) 06/17/22 06/17/22 06/17/22 Range/Units 15:02 15:02 16:42 WBC 10.7 H (3.8-10.6) k/uL RBC 4.47 (3.80-5.40) m/uL Hgb 13.2 (11.4-16.0) gm/dL Hct 41.4 (34.0-46.0) % MCV 92.5 (80.0-100.0) fL MCH 29.4 (25.0-35.0) pg MCHC 31.8 (31.0-37.0) g/dL RDW 13.5 (11.5-15.5) % Plt Count 230 (150-450) k/uL MPV 8.3 Neutrophils % 70 % Lymphocytes % 22 % Monocytes % 6 % Eosinophils % 1 % Basophils % 0 % Neutrophils # 7.5 (1.3-7.7) k/uL Lymphocytes # 2.3 (1.0-4.8) k/uL Monocytes # 0.6 (0-1.0) k/uL Eosinophils # 0.1 (0-0.7) k/uL Basophils # 0.0 (0-0.2) k/uL Sodium 138 (137-145) mmol/L Potassium 4.7 (3.5-5.1) mmol/L Chloride 103 (98-107) mmol/L Carbon Dioxide 26 (22-30) mmol/L Anion Gap 9 mmol/L BUN 20 H (7-17) mg/dL Creatinine 1.17 H (0.52-1.04) mg/dL Est GFR (CKD-EPI)AfAm 48 (>60 ml/min/1.73 sqM) Est GFR (CKD-EPI)NonAf 41 (>60 ml/min/1.73 sqM) Glucose 63 L (74-99) mg/dL POC Glucose (mg/dL) 91 (70-110) mg/dL POC Glu Amusement Ride Inspector ID Jeffrey Sewell Calcium 9.1 (8.4-10.2) mg/dL Total Bilirubin 0.4 (0.2-1.3) mg/dL AST 24 (14-36) U/L ALT 22 (4-34) U/L Alkaline Phosphatase 72 (38-126) U/L NT-Pro-B Natriuret Pep pg/mL Total Protein 6.2 L (6.3-8.2) g/dL Albumin 3.8 (3.5-5.0) g/dL Urine Color Urine Appearance (Clear) Urine pH (5.0-8.0) Ur Specific [place] (1.001-1.035) Urine Protein (Negative) Urine Glucose (UA) (Negative) Urine Ketones (Negative) Urine Blood (Negative) Urine Nitrite (Negative) Urine Bilirubin (Negative) Urine Urobilinogen (<2.0) mg/dL Ur Leukocyte Esterase (Negative) Urine RBC (0-5) /hpf Urine WBC (0-5) /hpf Ur Squamous Epith Cells (0-4) /hpf Urine Mucus (None) /hpf Coronavirus (PCR) (Not Detectd) Disposition <Everardo Navas - Last Filed: 06/17/22 14:38> Is patient prescribed a controlled substance at d/c from ED?: No Time of Disposition: 16:30 <Bari Alford - Last Filed: 06/17/22 17:00> Clinical Impression: COVID-19 virus infection, Vaginitis Narrative: admit for placement (Bari Alford) Disposition: ADMITTED IP TO THIS HOSP Condition: Stable Instructions (If sedation given, give patient instructions): Vaginal Atrophy (ED) Prescriptions: Sulfamethox-Tmp 800-160Mg [Bactrim DS 800-160 mg] 1 tab PO Q12HR 3 Days #6 tab dexAMETHasone [Decadron] 6 mg PO DAILY 4 Days #4 tablet Hydrocortisone Cream [Hydrocortisone 1% Cream] 1 applic TOPICAL BID #28 gm Referrals: Roney Smith DO [Primary Care Provider] - 1-2 days
[2022-06-17 12:57] LABS: Appearance,Urine Clear (Clear); Bilirubin,Urine Negative (Negative); Blood,Urine Trace (Negative); Color,Urine Light Yellow; Glucose,Urine (UA) Negative (Negative); Ketones,Urine Negative (Negative); Leukocyte Esterase,Urine Negative (Negative); Mucus,Urine Rare /hpf; Nitrite,Urine Negative (Negative); Protein,Urine Negative (Negative); RBC,Urine 5 /hpf (0-5); Specific Gravity,Urine 1.012 (1.001-1.035); Squamous Epithelial Cell,Urine 1 /hpf (0-4); Urobilinogen,Urine <2.0 mg/dL (<2.0); WBC,Urine 1 /hpf (0-5)
--- NOTE | 2022-06-17 13:16 | XR ---
EXAMINATION TYPE: XR chest 2V DATE OF EXAM: 06/17/2022 COMPARISON: Chest x-ray September 20, 2020 HISTORY: Difficulty in breathing TECHNIQUE: Frontal and lateral views of the chest are obtained. FINDINGS: The osseous structures remain demineralized. Multilevel spurring in the spine redemonstrat ed. Underlying scoliotic curvature redemonstrated. Degenerative change bilateral shoulders again seen . Cardiac silhouette size is slightly more prominent measuring upper limits of normal with atheroscle rotic and slightly more ectatic thoracic aorta. Increased central markings bilaterally. Tiny left ple ural effusion with blunting of posterior costophrenic angle. No pneumothorax seen bilaterally. IMPRESSION: Mild central vascular congestion with tiny left pleural effusion. Correlate for fluid ov erload state and/or CHF exacerbation.
[2022-06-17 15:07] LABS: Basophils % (A) 0 %; Eosinophils # (A) 0.1 k/uL (0-0.7); Eosinophils % (A) 1 %; HCT 41.4 % (34.0-46.0); HGB 13.2 gm/dL (11.4-16.0); Lymphocytes # (A) 2.3 k/uL (1.0-4.8); Lymphocytes % (A) 22 %; MCH 29.4 pg (25.0-35.0); MCHC 31.8 g/dL (31.0-37.0); MCV 92.5 fL (80.0-100.0); Mean Platelet Volume 8.3; Monocytes # (A) 0.6 k/uL (0-1.0); Monocytes % (A) 6 %; Neutrophils # (A) 7.5 k/uL (1.3-7.7); Neutrophils % (A) 70 %; Platelet Count 230 k/uL (150-450); RBC 4.47 m/uL (3.80-5.40); RDW 13.5 % (11.5-15.5); WBC 10.7 k/uL (3.8-10.6)
[2022-06-17 15:26] LABS: Albumin 3.8 g/dL (3.5-5.0); Calcium 9.1 mg/dL (8.4-10.2); Potassium 4.7 mmol/L (3.5-5.1); Total Bilirubin 0.4 mg/dL (0.2-1.3); Total Protein 6.2 g/dL (6.3-8.2)
[2022-06-17] MEDS ORDERED: SULFAMETHOX-TMP 800-160MG 1 EACH TAB PO STA (16:25)
[2022-06-17] MEDS ORDERED: dexAMETHasone 2 MG TAB PO STA (16:25)
[2022-06-17 16:44] LABS: Glucose,Whole Blood 91 mg/dL (70-110)
[2022-06-17] MEDS ORDERED: HYDROCORTISONE 1% CREAM 30 GM TUBE TOPICAL PRN (17:00)
[2022-06-17] MEDS ORDERED: ALBUTEROL HFA INHALER INHALATION PRN (17:01)
[2022-06-17] MEDS ORDERED: traMADol 50 MG TAB PO PRN (17:01)
[2022-06-17] MEDS ORDERED: NALOXONE 0.4 MG/ML 1 ML VIAL IV PRN (17:02)
[2022-06-17] MEDS ORDERED: NON FORMULARY DRUG (Rosuvastatin 20 MG Tablet) PO SCH (21:00)
[2022-06-17] MEDS ORDERED: LOSARTAN 50 MG TAB PO SCH (21:00)
[2022-06-17] MEDS ORDERED: ASPIRIN 81 MG PO SCH (21:00)
[2022-06-17] MEDS: HEPARIN SODIUM,PORCINE/PF 5,000 UNIT/0.5 ML SYRINGE SQ SCH (22:11)
[2022-06-17] MEDS: carvediloL 3.125 MG TAB PO SCH (22:11)
[2022-06-17 22:17] LABS: Glucose,Whole Blood 178 mg/dL (70-110)
[2022-06-18] MEDS: SYMBICORT 80-4.5 MCG INHALER INHALATION SCH ×3 (05:03→20:08)
[2022-06-18] MEDS: carvediloL 3.125 MG TAB PO SCH ×2 (05:53→18:59)
[2022-06-18] MEDS ORDERED: DEXTROSE 50% SYRINGE 50 ML IVP PRN ×2 (06:18)
[2022-06-18] MEDS ORDERED: LEVOTHYROXINE 112 MCG TAB PO SCH (06:30)
[2022-06-18 07:26] LABS: Glucose,Whole Blood 184 mg/dL (70-110)
[2022-06-18 08:08] VITALS: RESP 18
[2022-06-18] MEDS ORDERED: ZINC SULFATE 220 MG CAP PO SCH (09:00)
[2022-06-18] MEDS ORDERED: FUROSEMIDE 20 MG TAB PO SCH (09:00)
[2022-06-18] MEDS ORDERED: CHOLECALCIFEROL 25 MCG (1000 IU) TABLET PO SCH (09:00)
[2022-06-18] MEDS ORDERED: NON FORMULARY DRUG (Ubidecarenone [Co Q-10] 100 MG Capsule) PO SCH (09:00)
[2022-06-18] MEDS ORDERED: glipiZIDE 5 MG TAB PO SCH (09:00)
[2022-06-18] MEDS ORDERED: ASCORBIC ACID 500 MG TAB PO SCH (09:00)
[2022-06-18] MEDS ORDERED: PIOGLITAZONE 15 MG TAB PO SCH (09:00)
[2022-06-18] MEDS: INSULIN ASPART (NovoLOG) 100 UNIT/ML VIAL SQ SCH ×3 (09:08→18:55)
[2022-06-18] MEDS: HEPARIN SODIUM,PORCINE/PF 5,000 UNIT/0.5 ML SYRINGE SQ SCH (09:09)
[2022-06-18 09:41] LABS: Basophils # (A) 0.02 X 10*3/uL (0.00-0.10); Basophils % (A) 0.2 %; Eosinophils # (A) 0 X 10*3/uL (0.04-0.35); Eosinophils % (A) 0 %; HCT 39.9 % (37.2-46.3); HGB 12.7 g/dL (12.0-15.0); Immature Grans, Automated 0.6 %; Lymphocytes # (A) 1.28 X 10*3/uL (0.90-5.00); Lymphocytes % (A) 14.3 %; MCH 29.5 pg (27.0-32.0); MCHC 31.8 g/dL (32.0-37.0); MCV 92.8 fL (80.0-97.0); Monocytes # (A) 0.17 X 10*3/uL (0.20-1.00); Monocytes % (A) 1.9 %; NRBC Per 100 WBC 0 /100 WBCS (0.0-0.0); Neutrophils # (A) 7.42 X 10*3/uL (1.80-7.70); Platelet Count 244 X 10*3/uL (140-440); RDW 13.5 % (11.5-14.5); WBC 8.94 X 10*3/uL (4.50-10.00)
[2022-06-18 10:28] LABS: African American GFR (CKD) 46.4 (60.0-200.0); Anion Gap 9.9 mmol/L (10.00-18.00); BUN/Creat Ratio 14.75 Ratio (12.00-20.00); Blood Urea Nitrogen 17.7 mg/dL (9.0-27.0); Carbon Dioxide 26.1 mmol/L (20.0-27.5); Potassium 4.9 mmol/L (3.5-5.5)
[2022-06-18] MEDS ORDERED: polyethylene glycoL 3350 17 GM POWD.PACK PO PRN (11:02)
[2022-06-18 11:49] LABS: Glucose,Whole Blood 114 mg/dL (70-110)
[2022-06-18 14:52] VITALS: BP 154/66; PULSE 68; TEMP 97.9
--- NOTE | 2022-06-18 22:39 | P.HPIM ---
History of Present Illness Please consider this note as combined H&P and discharge summary This is a pleasant 87 years old female with past medical history of Asthma, COPD, Diabetes Mellitus, Hyperlipidemia, Hypertension, Osteoarthritis hypothyro idism Admitted yesterday for generalized weakness and UTI symptoms, patient information he says that she recently finished her treatment for her UTI, also patient has positive covid test at home As per documents patient came because of periods of unresponsiveness. When I saw the patient in her room she was fully awake and oriented, she knew she is in [facility] and she knows the date exactly as May although it's actually it was 25th and she couldn't recognize the name of the president Silvina. Patient states that she have contracted Covid about 10 days ago and since then she started having weakness with more sleepiness and especially in the first few days which also looks like affected her appetite. Also patient states that she's been recently treated for UTI which is finish her antibiotics recently and she was still complaining of from burning however as the day progressed she denies any burning and urethral orifices or bowel areas. She denies abdominal pain or nausea or vomiting or diarrhea. She denies headache or weakness or numbness, no blurred vision. she thinks she is back to her baseline. She denies any vaginal discharge or itching she has some excoriation in the perianal area but mild with pauses of infection and no need for antibiotic. She denies smoking, alcohol or illicit drugs Vitals are stable on admission Labs showing mild leukocytosis 10.7, rest of CBC, BMP and liver enzymes are unremarkable. Glucose was low 63 on admission ProBNP is 322. Urine analysis looks clean. Coronavirus positive EKG showed normal sinus rhythm at [address]-T changes Chest x-ray: Mild central vascular congestion with tiny left pleural effusion. Coverlet for fluid overload or CHF. At home she was on Actos 15 mg daily and glipizide 5 mg daily Review of Systems Review of systems CONSTITUTIONAL: No fever, no malaise, no fatigue. HEENT: No recent visual problems or hearing problems. Denied any sore throat. CARDIOVASCULAR: No orthopnea, PND, no palpitations, no syncope. PULMONARY: No shortness of breath, no cough, no hemoptysis. GASTROINTESTINAL: No diarrhea, no nausea, no vomiting, no abdominal pain. Normoactive bowel sounds. NEUROLOGICAL: No headaches, no weakness, no numbness. HEMATOLOGICAL: Denies any bleeding or petechiae. GENITOURINARY: Denies any burning micturition, frequency, or urgency. MUSCULOSKELETAL/RHEUMATOLOGICAL: Denies any joint pain, swelling, or any muscle pain. ENDOCRINE: Denies any polyuria or polydipsia. Past Medical History Past Medical History: Asthma, COPD, Diabetes Mellitus, Hyperlipidemia, Hyperte nsion, Osteoarthritis (OA), Thyroid Disorder Additional Past Medical History / Comment(s): ABNORMAL CARDIAC TESTING. SEE DR. Mckinley H & P. PATIENT HAD WOUND CARE OF LEFT ANKLE AREA, IT IS NOT OPEN, BUT IS RED. hx diverticulitis & diverticulosis, chronic bronchitis., lower back pain., edema legs & feet., bladder urgency-wears pads., difficulty walking-uses walker. History of Any Multi-Drug Resistant Organisms: None Reported Past Surgical History: Adenoidectomy, Cholecystectomy, Hernia Repair, Joint Replacement, Tonsillectomy Additional Past Surgical History / Comment(s): RT KNEE REPLACED. UMB HERNIA. 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 D&C 2014. HEMORRHOID, FISSURE SURG. Past Anesthesia/Blood Transfusion Reactions: No Reported Reaction Additional Past Anesthesia/Blood Transfusion Reaction / Comment(s): surgery was told by Anesthesiologist was difficult to put breathing tube in," Anesthesia Record-EMR Past Psychological History: Anxiety Smoking Status: Never smoker Past Alcohol Use History: None Reported Additional Past Alcohol Use History / Comment(s): AT 16 SMOKED 6 MO. Past Drug Use History: None Reported Additional Drug Use History / Comment(s): cbd oil and gummies occasionally - Past Family History Father Family Medical History: Cancer, CVA/TIA Additional Family Medical History / Comment(s): BLADDER Mother Family Medical History: Asthma, Pneumonia Additional Family Medical History / Comment(s): MOM WHEN PT WAS 5 YRS OLD- SHE THINKS OF LUNG PROBLEMS & ASTHMA Medications and Allergies Home Medications Medication Instructions Recorded Confirmed Type Losartan [Cozaar] 50 mg PO HS 11/21/15 06/17/22 History Albuterol Inhaler [Ventolin Hfa 2 puff INHALATION RT-Q4H PRN #1 09/21/20 06/17/22 Rx Inhaler] puff Ascorbic Acid [Vitamin C] 500 mg PO DAILY #30 tab 09/21/20 06/17/22 Rx polyethylene glycoL 3350 [Miralax] 17 gm PO DAILY PRN 12/09/20 06/17/22 History Ubidecarenone [Co Q-10] 100 mg PO DAILY 08/05/21 06/17/22 History Zinc Gluconate [Zinc] 50 mg PO DAILY 08/05/21 06/17/22 History Aspirin [Adult Low Dose Aspirin EC] 81 mg PO HS 05/05/22 06/17/22 History Rosuvastatin [Crestor] 20 mg PO HS 05/05/22 06/17/22 History traMADol HCL 50 - 100 mg PO Q6H PRN 05/05/22 06/17/22 History Mometasone/Formoterol [Dulera 100 2 puff INHALATION RT-BID 05/19/22 06/17/22 History Mcg-5 Mcg Inhaler] carvediloL [Coreg] 3.125 mg PO Q12H 05/19/22 06/17/22 History Cholecalciferol (Vitamin D3) 125 mcg PO DAILY 06/17/22 06/17/22 History [Vitamin D3 (125 MCG = 5,000 IU)] Furosemide [Lasix] 20 mg PO DAILY 06/17/22 06/17/22 History Hydrocortisone Cream 1 applic TOPICAL BID #28 gm 06/17/22 Rx [Hydrocortisone 1% Cream] Levothyroxine Sodium 112 mcg PO DAILY 06/17/22 06/17/22 History Allergies Allergy/AdvReac Type Severity Reaction Status Date / Time Gfobxrx-TOI-PaE Reductase AdvReac Mild muscles Verified 06/17/22 13:58 Inhibitor aches/CAN [Ucdssoh-Eri-Akl Reductase TOLERATES Inhibitor] CRESTOR cephalexin monohydrate AdvReac YEAST Verified 06/17/22 13:58 [From Keflex] INFECTION gabapentin [From Neurontin] AdvReac Unknown Verified 06/17/22 13:58 pregabalin [From Lyrica] AdvReac "FELT Verified 06/17/22 13:58 FUNNY" Physical Exam Vitals: Vital Signs Temp Pulse Pulse Resp BP BP Pulse Ox 06/18/22 03:22 98.3 F 63 17 139/55 97 06/18/22 01:49 19 06/17/22 22:19 98.2 F 78 19 175/83 96 06/17/22 20:00 99.3 F 87 18 147/65 94 L 06/17/22 18:36 65 16 187/75 97 06/17/22 11:35 98.9 F 62 18 165/73 97 Intake and Output 06/17/22 06/17/22 06/18/22 14:59 22:59 06:59 Output Total 300 Balance -300 Output: Urine 300 Other: Voiding Method Toilet Toilet Weight 120.202 kg 120.202 kg -GENERAL: The patient is alert and oriented x3, not in any acute distress. obese HEENT: Pupils are round and equally reacting to light. EOMI. No scleral icterus. No conjunctival pallor. Normocephalic, atraumatic. No pharyngeal erythema. No thyromegaly. CARDIOVASCULAR: S1 and S2 present. No murmurs, rubs, or gallops. PULMONARY: Chest is clear to auscultation, no wheezing or crackles. ABDOMEN: Soft, nontender, nondistended, normoactive bowel sounds. No palpable organomegaly. MUSCULOSKELETAL: No joint swelling or deformity. EXTREMITIES: No cyanosis, clubbing, or pedal edema. NEUROLOGICAL: Gross neurological examination did not reveal any focal deficits. SKIN: No rashes. no petechiae. Results CBC & Chem 7: 06/18/22 05:30 06/18/22 05:30 Labs: Abnormal Lab Results - Last 24 Hours (Table) 06/17/22 06/17/22 06/17/22 Range/Units 12:09 12:09 15:02 WBC 10.7 H (3.8-10.6) k/uL BUN (7-17) mg/dL Creatinine (0.52-1.04) mg/dL Glucose (74-99) mg/dL POC Glucose (mg/dL) (70-110) mg/dL Total Protein (6.3-8.2) g/dL Urine Blood Trace H (Negative) Urine Mucus Rare H (None) /hpf Coronavirus (PCR) Detected A (Not Detectd) 06/17/22 06/17/22 Range/Units 15:02 22:17 WBC (3.8-10.6) k/uL BUN 20 H (7-17) mg/dL Creatinine 1.17 H (0.52-1.04) mg/dL Glucose 63 L (74-99) mg/dL POC Glucose (mg/dL) 178 H (70-110) mg/dL Total Protein 6.2 L (6.3-8.2) g/dL Urine Blood (Negative) Urine Mucus (None) /hpf Coronavirus (PCR) (Not Detectd) Assessment and Plan Assessment: Altered mental status, most likely metabolic encephalopathy, Secondary to hypoglycemia. Completely resolved Recently treated acute urinary tract infection. Urine analysis negative and patient is as symptomatic Diabetes mellitus, with hypoglycemia on admission Hypertension Hyperlipidemia Asthma/COPD, not an active issue Morbid obesity with BMI of 40 6. Plan: This is a pleasant 87 years old female who presents with AMS, with hypoglycemia and for placement Patient was counseled to hold Actos and glipizide. As her hemoglobin A1c is 6.3% and her glucose was low 100 while on the regular diet. Patient was instructed to check her glucose at home 4 times a day and to follow up with Dr. Smith on this coming Wednesday's as she has appointment on him and she agrees to go see him on 06/22 No other new complaints. Patient generalized weakness it could be due to Covid viral infection which is expected The TSH is normal as well I called her PCP Dr. Smith and discussed the case with him and currently has gone to follow-up with her on this Friday 06/22 also he can we will follow up vitamin B12 level which is still pending, patient informed with these instructions and she stated she will follow-up. Continue with vitamin C, vitamin D and zinc. Patient does not need dexamethasone or steroids as she is not hypoxic Labs and medication were reviewed.. Continue same treatment. Continue with symptomatic treatment. Resume home medication. Monitor lytes and vitals. DVT and GI prophylaxis. Further recommendations as per clinical course of the patientPhysical therapy recommended home health care as patient was doing well Problems and management plan were discussed with the patient and he verbalized understanding and acceptance Patient was found stable and can be discharged home in guarded prognosis however he needs follow-up as an outpatient. Patient was instructed to follow up with PCP Dr. Mcbride within one week and patient agrees with the appointments made for her as above Time spent more than 35 minutes
--- NOTE | 2022-06-19 22:51 | CDI ---
Documentation Clarification Form Date: 06/19/2022 10:29:33 PM From: Bianka Song Phone: Admit Date: 06/17/2022 05:02:00 PM Patient Name: Chiara Paez Visit Number: [id number] Discharge Date: 06/18/2022 09:28:00 PM ATTENTION: The Clinical Documentation Specialists (CDI) and [facility] Coding Staff appreciate your assistance in clarifying documentation. Please respond to the clarification below the line at the bottom and electronically sign. The CDI & [facility] Coding staff will review the response and follow-up if needed. Please note: Queries are made part of the Legal Health Record. If you have any questions, please contact the author of this message via ITS. Dr. Rohan Denton Fluid overload or CHF is documented in the H&P which may lack sufficient clinical evidence/ support in the medical record. Additional clarification is requested. History/Risk Factors: 87yo F, met Enceph, COPD, DMII, HLD, HTN, OA, UTI, COVID, acute vaginitis, hypothyroidism Clinical Indicators: VS/Pulse OX: O2 Sat by Pulse 97 BNP: 322 EKG: showed normal sinus rhythm at [address]-T changes Chest X Ray: Mild central vascular congestion with tiny left pleural effusion. Correlate or fluid overload state and/or CHF exacerbation Treatment: Chest x-ray does show some mild pulmonary vascular congestion but BNP is normal patient's age. Please clarify the most appropriate diagnosis? [ ] Fluid overload [ ] Acute Systolic Heart Failure (reduced EF) [ ] Chronic Systolic Heart Failure (reduced EF) [ ] Acute on Chronic Systolic Heart Failure (reduced EF) [ ] Acute Diastolic Heart Failure (preserved EF) [ ] Chronic Diastolic Heart Failure (preserved EF) [ ] Acute on Chronic Diastolic Heart Failure (preserved EF) [ ] Acute Systolic & Diastolic Heart Failure [ ] Chronic Systolic & Diastolic Heart Failure [ ] Acute on Chronic Heart Failure Systolic & Diastolic Heart Failure [ ] Other, please specify [ ] Unable to determine (Template Last Revised: December 2020) no heart failure MTDD
--- NOTE | 2022-06-19 23:02 | CDI ---
Documentation Clarification Form Date: From: Bianka Song Phone: Admit Date: 06/17/2022 05:02:00 PM Patient Name: Chiara Paez Visit Number: [id number] Discharge Date: 06/18/2022 09:28:00 PM ATTENTION: The Clinical Documentation Specialists (CDI) and [facility] Coding Staff appreciate your assistance in clarifying documentation. Please respond to the clarification below the line at the bottom and electronically sign. The CDI & [facility] Coding staff will review the response and follow-up if needed. Please note: Queries are made part of the Legal Health Record. If you have any questions, please contact the author of this message via ITS. Dr. Rohan Denton Unspecified CKD is documented per ED Note. Additional clarification regarding the stage of CKD is requested. History/Risk Factors: History/Risk Factors: 87yo F, met Enceph, COPD, DMII, HLD, HTN, OA, UTI, COVID, acute vaginitis, hypothyroidism Patients Historical BUN/CR/GFR: GFR is low Clinical Indicators: BUN (7-17) mg/dL Creatinine (0.52-1.04) mg/dL Non- GFR(CKD) 41 (>60 ml/min/1.73 sqM) GFR (CKD) 48 (>60 ml/min/1.73 sqM) Treatment: DC Summary pending Please clarify the stage of the CKD, if known: [ ] CKD Stage 3 (GFR 30-59) [ ] CKD Stage 3a (GFR 45-59) [ ] CKD Stage 3b (GFR 30-44) [ ] Other, please specify [ ] Unable to determine (Template last revised: November 2020) CKD Stage 3 (GFR 30-59) MTDD
== END 2022-06-18 21:28 | disposition home or self-care (01) ==
LOC: EC 11:20 → 4SSUR 17:02 → INTOOBSV 17:02 → 6NMEDSUR 19:11 → UNDODISIN 06-18 21:28
PROVIDERS: ADMIT Hospitalist; ATTEND Hospitalist
PROC: 3E0333Z Introduction of Anti-inflammatory into Peripheral Vein, Percutaneous Approach (ICD-10-PCS; principal; 2022-06-17)
DX: E11.649 Type 2 diabetes mellitus with hypoglycemia without coma (principal); U07.1 COVID-19; N76.0 Acute vaginitis; E87.70 Fluid overload, unspecified; I12.9 Hypertensive chronic kidney disease with stage 1 through stage 4 chronic kidney disease, or unspecified chronic kidney disease; N18.30 Chronic kidney disease, stage 3 unspecified; E11.22 Type 2 diabetes mellitus with diabetic chronic kidney disease; J44.9 Chronic obstructive pulmonary disease, unspecified; E78.5 Hyperlipidemia, unspecified; K57.90 Diverticulosis of intestine, part unspecified, without perforation or abscess without bleeding; F41.9 Anxiety disorder, unspecified; R41.82 Altered mental status, unspecified; E03.9 Hypothyroidism, unspecified; I49.1 Atrial premature depolarization; M19.90 Unspecified osteoarthritis, unspecified site; R26.2 Difficulty in walking, not elsewhere classified; R09.89 Other specified symptoms and signs involving the circulatory and respiratory systems; E66.01 Morbid (severe) obesity due to excess calories; Z68.41 Body mass index [BMI] 40.0-44.9, adult; Z74.2 Need for assistance at home and no other household member able to render care; Z79.890 Hormone replacement therapy; Z79.82 Long term (current) use of aspirin; Z79.84 Long term (current) use of oral hypoglycemic drugs; Z79.51 Long term (current) use of inhaled steroids; Z79.899 Other long term (current) drug therapy; Z88.1 Allergy status to other antibiotic agents; Z90.2 Acquired absence of lung [part of]; Z87.440 Personal history of urinary (tract) infections; Z96.651 Presence of right artificial knee joint; Z87.01 Personal history of pneumonia (recurrent); Z87.891 Personal history of nicotine dependence; Z87.19 Personal history of other diseases of the digestive system; Z90.49 Acquired absence of other specified parts of digestive tract; Z98.890 Other specified postprocedural states; Z82.3 Family history of stroke; Z82.5 Family history of asthma and other chronic lower respiratory diseases; Z80.52 Family history of malignant neoplasm of bladder
CPT/HCPCS: 96372 ×2; 99285; 36415; 97162; 97165; 83880; 80053; 80048; 84443; 82607; 82746; 85025 ×2; 81001; 83036; 87635; 71046; G0378 ×3; J8540; J1644 ×2